=== PATIENT | male | born 1945 | race Two or more races ===

== ENCOUNTER 2022-11-18 08:21 | Emergency (ER) | payer OTHER, MEDICAID ==
[~2022-11-18] VITALS: Ht 167.6 cm; Wt 62.2 kg
[2022-11-18 10:16] LABS: Basophils # (auto) 0 10 ^3/uL (0-0.2); Basophils % (auto) 0.6 % (0.0-2.0); Eosinophils # (auto) 0 10 ^3/uL (0-0.8); Eosinophils % (auto) 0.4 % (0.0-7.0); Hematocrit 47.5 % (41.0-53.0); Hemoglobin 16.6 g/dL (13.5-17.5); Lymphocytes # (auto) 2.3 10 ^3/uL (0.4-5.4); Lymphocytes % (auto) 26.7 % (10.0-50.0); Mean Corpuscular Hemoglobin 32.7 pg (28.0-32.0); Mean Corpuscular Hgb Conc. 34.9 g/dL (32.0-36.0); Mean Corpuscular Volume 93.8 fL (80.0-100.0); Monocytes # (auto) 0.6 10 ^3/uL (0-1.3); Monocytes % (auto) 7.6 % (0.0-12.0); Neutrophils # (auto) 5.5 10 ^3/uL (1.6-8.6); Neutrophils % (auto) 64.7 % (37.0-80.0); Nucleated Red Blood Cells % 0.2 %; Red Blood Cells 5.07 10^6/uL (4.5-5.90); Red Cell Distribution Width 13.8 % (11.8-14.3); White Blood Cell 8.5 10^3/uL (4.4-10.8)
[2022-11-18 10:28] LABS: Urine Bacteria FEW /hpf (None Seen); Urine Blood Negative /uL (Negative); Urine Mucus MODERATE (None Seen); Urine WBC 21 /hpf (0 - 3)
[2022-11-18 10:41] LABS: Albumin 3.8 g/dL (3.4-5.0); CRP High Sensitivity 0.36 mg/dL (< 0.3); Calcium 9.1 mg/dL (8.5-10.1); Magnesium 2.4 mg/dL (1.6-2.6); Potassium 3.7 mmol/L (3.5-5.1)
[2022-11-18 10:44] LABS: BUN/Creatinine Ratio 22.4 (10.0-20.0); Bilirubin, Total 0.6 mg/dL (0.2-1.0); Total Protein 7.4 g/dL (6.4-8.2)
[2022-11-18] MEDS ORDERED: BACDST PO (11:33)
[2022-11-18] MEDS ORDERED: cefTRIAXone SOD 1,000 MG VL IM ONE (11:45)
[2022-11-18 12:01] VITALS: BP 144/82
== END 2022-11-18 11:51 | disposition home or self-care (01) ==
LOC: ER 08:21
DX: N39.0 Urinary tract infection, site not specified (principal); R07.89 Other chest pain; Z20.822 Contact with and (suspected) exposure to COVID-19
CPT/HCPCS: 36415; 71045; 80053; 81001; 83735; 85025; 86141; 87426; 87804; 96372; 99284; J0696

== ENCOUNTER 2023-08-21 03:37 | Inpatient (IN) | payer OTHER, MEDICAID ==
[~2023-08-21] VITALS: Ht 177.8 cm; Wt 65.1 kg
[~2023-08-21 03:37] MED LIST: BACDST PO
[2023-08-21 07:32] LABS: Basophils # (auto) 0 10 ^3/uL (0-0.2); Basophils % (auto) 0.1 % (0.0-2.0); Eosinophils # (auto) 0 10 ^3/uL (0-0.8); Hematocrit 41.6 % (41.0-53.0); Hemoglobin 13.6 g/dL (13.5-17.5); Lymphocytes # (auto) 1.2 10 ^3/uL (0.4-5.4); Lymphocytes % (auto) 5.9 % (10.0-50.0); Mean Corpuscular Hgb Conc. 32.8 g/dL (32.0-36.0); Mean Corpuscular Volume 100.5 fL (80.0-100.0); Monocytes # (auto) 1.2 10 ^3/uL (0-1.3); Monocytes % (auto) 5.5 % (0.0-12.0); Neutrophils # (auto) 18.5 10 ^3/uL (1.6-8.6); Neutrophils % (auto) 88.5 % (37.0-80.0); Red Blood Cells 4.14 10^6/uL (4.5-5.90); Red Cell Distribution Width 14.4 % (11.8-14.3); White Blood Cell 20.9 10^3/uL (4.4-10.8)
[2023-08-21 07:38] LABS: Alanine Aminotransferase 18 U/L (7-40); Albumin 4.4 g/dL (3.2-4.8); Alkaline Phosphatase 75 U/L (46-116); Anion Gap 19 (5-15); Aspartate Aminotransferase 32 U/L (13-40); BUN/Creatinine Ratio 17.9 (10.0-20.0); Bilirubin, Total 0.6 mg/dL (0.2-1.0); Blood Alcohol < 3.0 mg/dL (<10); Blood Urea Nitrogen 21 mg/dL (9-23); Calcium 9.2 mg/dL (8.5-10.1); Carbon Dioxide 16 mmol/L (20-30); Chloride 107 mmol/L (98-107); Glucose 175 mg/dL (74-106); Potassium 3.6 mmol/L (3.5-5.1); Sodium 142 mmol/L (136-145); Total Protein 6.8 g/dL (5.7-8.2)
[2023-08-21 07:40] VITALS: PULSE 81; RESP 22; O2SAT 92
[2023-08-21 07:49] LABS: Salicylate < 3.0 mg/dL (2.8-20.0)
[2023-08-21 07:53] LABS: Lipase 29 U/L (12-53)
[2023-08-21 08:22] LABS: Urine Bacteria NONE SEEN /hpf (None Seen); Urine Blood 2+ /uL (Negative); Urine Clarity Clear (Clear); Urine Color Yellow (Yellow); Urine Mucus FEW (None Seen); Urine Protein, UAD 1+ (Negative); Urine Specific Gravity 1.029 (1.001-1.035); Urine Urobilinogen Normal (Negative); Urine WBC 2 /hpf (0 - 3); Urine pH 5.5 (5.0-8.0)
[2023-08-21 08:45] LABS: Amphetamine Screen, Urine Neg (NEGATIVE); Barbiturate Scree,Urine Neg (NEGATIVE); Benzodiazephine Screen, Urine Neg (NEGATIVE); Cocaine Screen, Urine Neg (NEGATIVE); Opiate Scree,Urine Neg (NEGATIVE); Phencyclidine Screen, Urine Neg (NEGATIVE)
[2023-08-21 08:46] LABS: Cannabinoid Screen, Urine Pos (NEGATIVE)
[2023-08-21] MEDS: MORPHINE SULFATE 4 MG/ML SYR/VIAL IV ONE (09:10)
[2023-08-21] MEDS: LABETALOL HCL 5 MG/ML 4ML SYRINGE IV ONE (09:10)
[2023-08-21] MEDS: IOHEXOL 350 MG/ML 100ML IJ ONE (09:11)
[2023-08-21] MEDS: LORazepam 2MG/ML-1ML VIAL IV ONE (09:11)
[2023-08-21] MEDS ORDERED: MORPHINE SULFATE 4 MG/ML SYR/VIAL IV PRN (12:00)
[2023-08-21] MEDS ORDERED: ONDANSETRON HCL 4 MG/2 ML VIAL IV PRN (12:00)
[2023-08-21] MEDS ORDERED: hydrALAZINE HCL 20 MG/ML VL IV PRN (12:00)
[2023-08-21] MEDS ORDERED: DEXTROSE (50%) 50ML SYRG IV PRN (12:00)
[2023-08-21] MEDS ORDERED: NITROGLYCERIN 0.4 MG SL TAB SL PRN (12:00)
[2023-08-21] MEDS: levETIRAcetam 1000 mg/100ml 100 ML IV ONE (12:08)
[2023-08-21] MEDS: LORazepam 2MG/ML-1ML VIAL IV PRN (12:39)
[2023-08-21] MEDS: SODIUM CHLORIDE 0.9% 1,000 ML IV SCH (12:39)
[2023-08-21] MEDS: ACCU-CHEK COMFORT CURVE STRIP VI SCH (12:40)
[2023-08-21] MEDS: InsuLIN REG 1unit/0.01ml Soln (100units/ml) SC SCH (12:44)
[2023-08-21 13:03] LABS: Blood Alcohol < 3.0 mg/dL (<10); INR 1.04 (0.9-1.15); Prothrombin Time 10.9 sec (9.3-11.8)
[2023-08-21 13:05] LABS: Phosphorus 2.4 mg/dL (2.4-5.1)
[2023-08-21 14:16] LABS: Lactic Acid w/Reflex 2.4 mmol/L (0.4-2.0)
[2023-08-21] MEDS: SODIUM CHLORIDE 0.9% 500 ML IV ONE (14:38)
[2023-08-21] MEDS: cefTRIAXone 1GM/50ML D5W 50 ML IV ONE (15:35)
[2023-08-21 16:55] LABS: Triglycerides 55 mg/dL (< 150)
[2023-08-21 16:56] LABS: LDL Cholesterol 84 mg/dL (< 100)
[2023-08-21 16:57] LABS: Cholesterol 130 mg/dL (< 200); HDL Cholesterol 42 mg/dL (40-59)
[2023-08-21 18:10] VITALS: BP 134/56; PULSE 102; RESP 18; O2SAT 98
[2023-08-21 18:20] VITALS: O2SAT 96
[2023-08-21 20:00] VITALS: PULSE 106; PULSE 87; O2SAT 94
[2023-08-21 22:00] VITALS: BP 161/73; PULSE 101; RESP 22; TEMP 98.3; O2SAT 92
[2023-08-21] MEDS: ATORVASTATIN 20 MG TAB PO SCH (22:02)
[2023-08-21] MEDS: levETIRAcetam 1000 mg/100ml 100 ML IV SCH (22:02)
[2023-08-21] MEDS: METOPROLOL TARTRATE 25 MG TAB PO SCH (22:03)
[2023-08-22] VITALS (7 sets, daily range): BP systolic 117–140; BP diastolic 44–81; PULSE 75–103; RESP 16–19; TEMP 98.4–98.6; O2SAT 93–96
[2023-08-22] MEDS: ACETAMINOPHEN 325 MG TAB PO PRN (01:33)
[2023-08-22 05:54] LABS: Basophils # (auto) 0.1 10 ^3/uL (0-0.2); Basophils % (auto) 0.7 % (0.0-2.0); Eosinophils # (auto) 0 10 ^3/uL (0-0.8); Hematocrit 36.8 % (41.0-53.0); Lymphocytes # (auto) 3.5 10 ^3/uL (0.4-5.4); Lymphocytes % (auto) 18.1 % (10.0-50.0); Mean Corpuscular Hemoglobin 31.8 pg (28.0-32.0); Mean Corpuscular Hgb Conc. 32.6 g/dL (32.0-36.0); Mean Corpuscular Volume 97.7 fL (80.0-100.0); Monocytes # (auto) 1.2 10 ^3/uL (0-1.3); Monocytes % (auto) 6.4 % (0.0-12.0); Neutrophils # (auto) 14.3 10 ^3/uL (1.6-8.6); Neutrophils % (auto) 74.8 % (37.0-80.0); Red Blood Cells 3.77 10^6/uL (4.5-5.90); Red Cell Distribution Width 13.7 % (11.8-14.3); White Blood Cell 19.2 10^3/uL (4.4-10.8)
[2023-08-22 06:23] LABS: Alanine Aminotransferase 20 U/L (7-40); Albumin 3.9 g/dL (3.2-4.8); Alkaline Phosphatase 62 U/L (46-116); Anion Gap 10 (5-15); Aspartate Aminotransferase 155 U/L (13-40); BUN/Creatinine Ratio 15.3 (10.0-20.0); Blood Urea Nitrogen 15 mg/dL (9-23); Carbon Dioxide 20 mmol/L (20-30); Chloride 109 mmol/L (98-107); Cholesterol 129 mg/dL (< 200); Glucose 118 mg/dL (74-106); LDL Cholesterol 71 mg/dL (< 100); Potassium 3.6 mmol/L (3.5-5.1); Sodium 139 mmol/L (136-145); Triglycerides 95 mg/dL (< 150)
[2023-08-22 06:24] LABS: Bilirubin, Total 1.2 mg/dL (0.2-1.0); HDL Cholesterol 45 mg/dL (40-59); Total Protein 6.4 g/dL (5.7-8.2)
[2023-08-22 07:07] LABS: RPR Non Reactive (Non Reactive)
[2023-08-22] MEDS: ASPirin 81 mg TAB PO SCH (08:48)
[2023-08-22] MEDS: cefTRIAXone 1GM/50ML D5W 50 ML IV SCH (08:48)
[2023-08-22] MEDS: DOCUSATE SOD 100 MG CAP PO SCH (08:49)
[2023-08-22] MEDS: ENOXAPARIN SOD 40 MG/0.4 ML SYRINGE SC SCH ×2 (08:49→13:56)
[2023-08-22] MEDS ORDERED: LORazepam 2MG/ML-1ML VIAL IV PRN ×2 (12:30)
[2023-08-22] MEDS ORDERED: ENOXAPARIN SOD 40 MG/0.4 ML SYRINGE SC SCH (12:30)
[2023-08-22] MEDS: ATORVASTATIN 20 MG TAB PO SCH (13:55)
[2023-08-22] MEDS: levETIRAcetam 500 MG TAB PO SCH (21:27)
[2023-08-23 05:00] VITALS: BP 136/74; PULSE 76; RESP 18; TEMP 99.9; O2SAT 95
[2023-08-23 08:00] VITALS: BP 136/63; PULSE 101; PULSE 57; RESP 20; TEMP 99.2; O2SAT 93
[2023-08-23 12:00] VITALS: BP 117/62; PULSE 61; RESP 20; TEMP 98.3; O2SAT 94
[2023-08-23 16:00] VITALS: BP 145/93; PULSE 90; RESP 20; TEMP 99.1; O2SAT 96
[2023-08-23 20:00] VITALS: BP 117/62; PULSE 66; TEMP 37.3
[2023-08-23 21:56] VITALS: BP 136/89; PULSE 66; RESP 18; TEMP 98.9; O2SAT 95
[2023-08-24] VITALS (7 sets, daily range): BP systolic 110–144; BP diastolic 59–82; PULSE 56–107; RESP 16–18; TEMP 97.8–98.4; O2SAT 93–95
[2023-08-24] MEDS: HYDROcodone-ACET 5/325MG TAB PO PRN (20:19)
[2023-08-24] MEDS: TEMAZEPAM 15 MG CAP PO PRN (23:30)
[2023-08-25] VITALS (11 sets, daily range): BP systolic 125–146; BP diastolic 47–86; PULSE 85–100; RESP 14–20; TEMP 98–98.6; O2SAT 94–100
[2023-08-25 06:33] LABS: INR 1.01 (0.9-1.15); Partial Thromboplastin Time 31.3 SEC (24.5-34.5); Prothrombin Time 10.6 sec (9.3-11.8)
[2023-08-25 08:57] LABS: Chloride 109 mmol/L (98-107); Potassium 3.5 mmol/L (3.5-5.1); Sodium 141 mmol/L (136-145)
[2023-08-25 08:58] LABS: Anion Gap 4 (5-15); Basophils # (auto) 0.1 10 ^3/uL (0-0.2); Basophils % (auto) 0.5 % (0.0-2.0); Calcium 8.4 mg/dL (8.5-10.1); Carbon Dioxide 28 mmol/L (20-30); Eosinophils # (auto) 0.1 10 ^3/uL (0-0.8); Eosinophils % (auto) 0.7 % (0.0-7.0); Hematocrit 30.1 % (41.0-53.0); Hemoglobin 10.2 g/dL (13.5-17.5); Lymphocytes % (auto) 17.9 % (10.0-50.0); Mean Corpuscular Hemoglobin 33.4 pg (28.0-32.0); Mean Corpuscular Hgb Conc. 33.9 g/dL (32.0-36.0); Mean Corpuscular Volume 98.4 fL (80.0-100.0); Monocytes % (auto) 9.4 % (0.0-12.0); Neutrophils % (auto) 71.5 % (37.0-80.0); Red Blood Cells 3.06 10^6/uL (4.5-5.90); Red Cell Distribution Width 13.5 % (11.8-14.3); White Blood Cell 11.1 10^3/uL (4.4-10.8)
[2023-08-25 09:03] LABS: Glucose 108 mg/dL (74-106)
[2023-08-25 11:06] LABS: BUN/Creatinine Ratio 13.5 (10.0-20.0); Blood Urea Nitrogen 10 mg/dL (9-23)
[2023-08-25] MEDS: POTASSIUM CHL 20 Meq TABLET PO ONE (12:33)
[2023-08-25] MEDS: MORPHINE SULFATE INJ 2 MG/ml SYRG IV PRN (12:33)
[2023-08-25] MEDS ORDERED: ENOXAPARIN SOD 40 MG/0.4 ML SYRINGE SC ONE (13:15)
[2023-08-25] MEDS: LIDOCAINE VISCOUS 2% 15ML UD PO ONE (13:38)
[2023-08-25] MEDS: fentaNYL CITRATE 100 MCG/2 ML VL IV ONE (13:47)
[2023-08-25] MEDS: MIDAZOLAM HCL 2MG/2ML 2ml VIAL (1mg/ml) IV ONE (13:49)
[2023-08-25] MEDS: IOHEXOL 350 MG/ML 100ML IJ ONE (16:12)
[2023-08-26] VITALS (9 sets, daily range): BP systolic 106–151; BP diastolic 61–87; PULSE 93–111; RESP 17–20; TEMP 97.8–99.1; O2SAT 95–97
[2023-08-26 06:43] LABS: Basophils # (auto) 0 10 ^3/uL (0-0.2); Basophils % (auto) 0.2 % (0.0-2.0); Eosinophils # (auto) 0.1 10 ^3/uL (0-0.8); Eosinophils % (auto) 0.8 % (0.0-7.0); Hematocrit 31.2 % (41.0-53.0); Hemoglobin 10.2 g/dL (13.5-17.5); Lymphocytes # (auto) 2.1 10 ^3/uL (0.4-5.4); Lymphocytes % (auto) 17.4 % (10.0-50.0); Mean Corpuscular Hemoglobin 32.2 pg (28.0-32.0); Mean Corpuscular Hgb Conc. 32.8 g/dL (32.0-36.0); Mean Corpuscular Volume 98.3 fL (80.0-100.0); Monocytes # (auto) 1.3 10 ^3/uL (0-1.3); Monocytes % (auto) 10.7 % (0.0-12.0); Neutrophils # (auto) 8.4 10 ^3/uL (1.6-8.6); Neutrophils % (auto) 70.9 % (37.0-80.0); Red Blood Cells 3.17 10^6/uL (4.5-5.90); Red Cell Distribution Width 13.4 % (11.8-14.3); White Blood Cell 11.9 10^3/uL (4.4-10.8)
[2023-08-26 07:00] LABS: Chloride 104 mmol/L (98-107); Potassium 3.4 mmol/L (3.5-5.1)
[2023-08-26 07:01] LABS: Anion Gap 7 (5-15); Calcium 8.6 mg/dL (8.5-10.1); Carbon Dioxide 25 mmol/L (20-30)
[2023-08-26 07:06] LABS: BUN/Creatinine Ratio 12.5 (10.0-20.0); Blood Urea Nitrogen 9 mg/dL (9-23); Glucose 96 mg/dL (74-106)
[2023-08-26 07:09] LABS: Sodium 136 mmol/L (136-145)
[2023-08-26] MEDS: ENOXAPARIN SOD 40 MG/0.4 ML SYRINGE SC SCH (10:31)
[2023-08-26] MEDS ORDERED: HYDR-4902 PO (10:40)
[2023-08-26] MEDS ORDERED: ATOR20TA50 PO (10:40)
[2023-08-26] MEDS ORDERED: KEP500T PO (10:40)
[2023-08-26] MEDS ORDERED: AMLO1TAB23 PO (14:36)
[2023-08-27 05:00] VITALS: BP 120/75; PULSE 107; RESP 16; TEMP 98.3; O2SAT 96
[2023-08-27 08:00] VITALS: PULSE 106
[2023-08-27 08:50] VITALS: BP 127/56; PULSE 110; RESP 16; TEMP 98.6; O2SAT 97
[2023-08-27 13:00] VITALS: BP 125/61; PULSE 108; RESP 16; TEMP 98.5; O2SAT 97
== END 2023-08-27 15:01 | disposition home health service (06) | DRG 100 ==
LOC: EDBD 03:37 → ER 03:37 → TELE 12:13 → TELE-WESTW 17:54
PROVIDERS: ADMIT Nurse Practitioner Family; ATTEND Internal Medicine Pulmonary Disease
PROC: B246ZZ4 Ultrasonography of Right and Left Heart, Transesophageal (ICD-10-PCS; principal; 2023-08-25)
DX: G40.909 Epilepsy, unspecified, not intractable, without status epilepticus (principal); I21.A1 Myocardial infarction type 2; S42.292A Other displaced fracture of upper end of left humerus, initial encounter for closed fracture; I16.0 Hypertensive urgency; F17.200 Nicotine dependence, unspecified, uncomplicated; W18.39XA Other fall on same level, initial encounter; Y92.89 Other specified places as the place of occurrence of the external cause; Y99.8 Other external cause status; Y93.89 Activity, other specified; Z86.73 Personal history of transient ischemic attack (TIA), and cerebral infarction without residual deficits; Z79.82 Long term (current) use of aspirin; Z79.899 Other long term (current) drug therapy; Z82.49 Family history of ischemic heart disease and other diseases of the circulatory system
CPT/HCPCS: 36415; 36600; 70450; 70498; 70551; 71045; 71260; 73020; 73030; 73200; 74177; 80048; 80053; 80061; 80307; 80320; 80329; 81001; 82805; 82962; 83036; 83605; 83690; 83735; 84100; 84443; 84484; 85025; 85610; 85730; 86592; 86850; 86900; 86901; 87040; 87077; 87186; 93005; 93306; 93312; 93886; 95819; 97110; 97116; 97163; 97530; 99152; 99291; G0378; J1815; J2250; J3490

== ENCOUNTER 2023-11-26 14:41 | Emergency (ER) | payer OTHER, MEDICAID ==
[~2023-11-26] VITALS: Ht 167.6 cm; Wt 61.3 kg
[~2023-11-26 14:41] MED LIST changes: +AMLO1TAB23 PO; +ATOR20TA50 PO; -BACDST PO; +HYDR-4902 PO; +KEP500T PO
[2023-11-26] MEDS ORDERED: SODIUM CHLORIDE 0.9% 1,000 ML IV ONE (16:15)
[2023-11-26 17:02] LABS: Basophils # (auto) 0 10 ^3/uL (0-0.2); Basophils % (auto) 0.4 % (0.0-2.0); Eosinophils # (auto) 0.1 10 ^3/uL (0-0.8); Eosinophils % (auto) 1.3 % (0.0-7.0); Hematocrit 42.5 % (41.0-53.0); Hemoglobin 13.7 g/dL (13.5-17.5); Lymphocytes % (auto) 36.4 % (10.0-50.0); Mean Corpuscular Hemoglobin 30.9 pg (28.0-32.0); Mean Corpuscular Hgb Conc. 32.3 g/dL (32.0-36.0); Mean Corpuscular Volume 95.5 fL (80.0-100.0); Monocytes # (auto) 0.9 10 ^3/uL (0-1.3); Monocytes % (auto) 10.4 % (0.0-12.0); Neutrophils # (auto) 4.3 10 ^3/uL (1.6-8.6); Neutrophils % (auto) 51.5 % (37.0-80.0); Nucleated Red Blood Cells % 0.1 %; Red Blood Cells 4.45 10^6/uL (4.5-5.90); Red Cell Distribution Width 13.5 % (11.8-14.3); White Blood Cell 8.4 10^3/uL (4.4-10.8)
[2023-11-26 17:19] LABS: INR 1.01 (0.9-1.15); Partial Thromboplastin Time 27.9 SEC (24.5-34.5); Prothrombin Time 10.7 sec (9.3-11.8)
[2023-11-26 17:25] LABS: Chloride 107 mmol/L (98-107); Potassium 3.6 mmol/L (3.5-5.1); Sodium 140 mmol/L (136-145)
[2023-11-26 17:26] LABS: Anion Gap 3 (5-15); Calcium 9.2 mg/dL (8.5-10.1); Carbon Dioxide 30 mmol/L (20-30)
[2023-11-26 17:31] LABS: BUN/Creatinine Ratio 7.3 (10.0-20.0); Blood Urea Nitrogen 9 mg/dL (9-23); Glucose 83 mg/dL (74-106)
[2023-11-26 17:43] LABS: Urine Bacteria None Seen /hpf (None Seen)
[2023-11-26 17:52] VITALS: PULSE 74; RESP 15; O2SAT 98
[2023-11-26 18:37] LABS: Urine Blood TRACE /uL (Negative); Urine Clarity Clear (Clear); Urine Color Light-Yellow (Yellow); Urine Protein, UAD Negative (Negative); Urine Specific Gravity 1.012 (1.001-1.035); Urine Urobilinogen Normal (Negative); Urine WBC 1 /hpf (0 - 3); Urine pH 5.5 (5.0-9.0)
[2023-11-27 03:30] VITALS: BP 141/59; PULSE 97; RESP 16; O2SAT 95
== END 2023-11-27 04:32 | disposition home or self-care (01) ==
LOC: EDBD 14:45 → ER 14:45
DX: S42.292D Other displaced fracture of upper end of left humerus, subsequent encounter for fracture with routine healing (principal); X58.XXXD Exposure to other specified factors, subsequent encounter
CPT/HCPCS: 29105; 36415; 73200; 80048; 81001; 85025; 85610; 85730

== ENCOUNTER 2024-03-12 11:20 | Inpatient (IN) | payer OTHER, MEDICAID ==
[~2024-03-12] VITALS: Ht 175.3 cm; Wt 61.8 kg
[2024-03-12 12:00] LABS: Basophils # (auto) 0.1 10 ^3/uL (0-0.2); Basophils % (auto) 0.9 % (0.0-2.0); Eosinophils # (auto) 0 10 ^3/uL (0-0.8); Hematocrit 40.9 % (41.0-53.0); Hemoglobin 14.2 g/dL (13.5-17.5); Lymphocytes # (auto) 2.5 10 ^3/uL (0.4-5.4); Mean Corpuscular Hemoglobin 33.3 pg (28.0-32.0); Mean Corpuscular Hgb Conc. 34.6 g/dL (32.0-36.0); Monocytes # (auto) 1.3 10 ^3/uL (0-1.3); Monocytes % (auto) 8.5 % (0.0-12.0); Neutrophils % (auto) 73.6 % (37.0-80.0); Platelet Count (auto) 336 10^3/uL (140-450); Red Blood Cells 4.26 10^6/uL (4.5-5.90); Red Cell Distribution Width 14.1 % (11.8-14.3); White Blood Cell 14.9 10^3/uL (4.4-10.8)
[2024-03-12 12:01] VITALS: PULSE 60; RESP 16; O2SAT 97
[2024-03-12] MEDS: LORazepam 2MG/ML-1ML VIAL IV ONE ×2 (12:11→12:57)
[2024-03-12] MEDS: LORazepam 2MG/ML-1ML VIAL ONE (12:11)
[2024-03-12] MEDS: SODIUM CHLORIDE 0.9% 1,000 ML IV ONE ×2 (12:11→15:29)
[2024-03-12 12:17] LABS: INR 1.08 (0.9-1.15); Partial Thromboplastin Time 28.9 SEC (24.5-34.5); Prothrombin Time 11.4 sec (9.3-11.8)
[2024-03-12 12:37] LABS: Alanine Aminotransferase 14 U/L (7-40); Albumin 4.4 g/dL (3.2-4.8); Alkaline Phosphatase 80 U/L (46-116); Anion Gap 8 (5-15); Aspartate Aminotransferase 27 U/L (13-40); BUN/Creatinine Ratio 17.3 (10.0-20.0); Bilirubin, Total 0.3 mg/dL (0.2-1.0); Blood Alcohol < 3.0 mg/dL (<10); Blood Urea Nitrogen 17 mg/dL (9-23); Calcium 9.8 mg/dL (8.7-10.4); Carbon Dioxide 25 mmol/L (20-30); Chloride 105 mmol/L (98-107); Glucose 105 mg/dL (74-106); Potassium 4.5 mmol/L (3.5-5.1); Sodium 138 mmol/L (136-145); Total Protein 6.7 g/dL (5.7-8.2)
[2024-03-12 13:15] LABS: Urine Bacteria None Seen /hpf (None Seen)
[2024-03-12 13:37] LABS: Urine Blood 2+ /uL (Negative); Urine Clarity Clear (Clear); Urine Color Light-Yellow (Yellow); Urine Hyaline Cast FEW /lpf (0 - 2); Urine Mucus FEW (None Seen); Urine Protein, UAD TRACE (Negative); Urine Specific Gravity 1.019 (1.001-1.035); Urine Urobilinogen Normal (Negative); Urine WBC 5 /hpf (0 - 3); Urine pH 5.5 (5.0-9.0)
[2024-03-12 14:02] LABS: Amphetamine Screen, Urine Neg (NEGATIVE); Barbiturate Scree,Urine Neg (NEGATIVE); Benzodiazephine Screen, Urine Neg (NEGATIVE); Cannabinoid Screen, Urine Pos (NEGATIVE); Cocaine Screen, Urine Neg (NEGATIVE); Opiate Scree,Urine Neg (NEGATIVE); Phencyclidine Screen, Urine Neg (NEGATIVE)
[2024-03-12] MEDS: ENOXAPARIN SOD 80 MG/0.8ML SYRINGE SC ONE (16:26)
[2024-03-12] MEDS: cefTRIAXone 1GM/50ML D5W 50 ML IV ONE (16:26)
[2024-03-12] MEDS ORDERED: ACETAMINOPHEN 325 MG TAB PO PRN (18:00)
[2024-03-12] MEDS ORDERED: MORPHINE SULFATE INJ 2 MG/ml SYRG IV PRN (18:00)
[2024-03-12] MEDS ORDERED: ONDANSETRON HCL 4 MG/2 ML VIAL IV PRN (18:00)
[2024-03-12] MEDS ORDERED: NITROGLYCERIN 0.4 MG SL TAB SL PRN (18:00)
[2024-03-12 19:45] VITALS: PULSE 57; RESP 16; O2SAT 97
[2024-03-12] MEDS: ATORVASTATIN 20 MG TAB PO SCH (22:00)
[2024-03-12] MEDS: levETIRAcetam 500 MG TAB PO SCH (22:00)
[2024-03-12 22:54] VITALS: PULSE 51; RESP 19; O2SAT 97
[2024-03-12 23:30] VITALS: BP 126/35; PULSE 51; RESP 19; TEMP 98.3; O2SAT 97
[2024-03-13] VITALS (10 sets, daily range): BP systolic 119–138; BP diastolic 44–66; PULSE 56–80; RESP 17–18; TEMP 98.3–98.7; O2SAT 91–97
[2024-03-13] MEDS: ASPirin 81 mg TAB PO SCH ×2 (09:01→18:45)
[2024-03-13] MEDS: amLODIPine BESYLATE 5 MG TAB PO SCH (09:02)
[2024-03-13] MEDS: ENOXAPARIN SOD 40 MG/0.4 ML SYRINGE SC SCH (09:02)
[2024-03-13] MEDS: cefTRIAXone 1GM/50ML D5W 50 ML IV ONE (12:41)
[2024-03-13] MEDS ORDERED: LORazepam 2MG/ML-1ML VIAL IV PRN (18:45)
[2024-03-13] MEDS: ATORVASTATIN 20 MG TAB PO SCH (18:45)
[2024-03-14] VITALS (8 sets, daily range): BP systolic 114–137; BP diastolic 49–64; PULSE 54–79; RESP 16–18; TEMP 97.4–98.4; O2SAT 94–97
[2024-03-14] MEDS: cefTRIAXone 1GM/50ML D5W 50 ML IV SCH (08:15)
[2024-03-15] VITALS (7 sets, daily range): BP systolic 118–125; BP diastolic 61–79; PULSE 65–77; RESP 17–18; TEMP 98–98.4; O2SAT 97–98
[2024-03-15] MEDS ORDERED: CIPR-173 PO (12:39)
== END 2024-03-15 15:39 | disposition home or self-care (01) | DRG 871 ==
LOC: ER 11:20 → EDBD 11:20 → TELE 18:09 → TELE-WESTW 18:09
PROVIDERS: ADMIT Nurse Practitioner; ATTEND Family Medicine
DX: A41.9 Sepsis, unspecified organism (principal); I21.A1 Myocardial infarction type 2; N39.0 Urinary tract infection, site not specified; G40.909 Epilepsy, unspecified, not intractable, without status epilepticus; I10 Essential (primary) hypertension; E78.00 Pure hypercholesterolemia, unspecified; F17.200 Nicotine dependence, unspecified, uncomplicated; G93.89 Other specified disorders of brain; Z79.82 Long term (current) use of aspirin; Z86.73 Personal history of transient ischemic attack (TIA), and cerebral infarction without residual deficits; Z79.899 Other long term (current) drug therapy; Z82.49 Family history of ischemic heart disease and other diseases of the circulatory system
CPT/HCPCS: 36415; 70450; 70551; 71045; 72125; 80053; 80307; 80320; 81001; 82140; 83605; 83735; 84484; 85025; 85610; 85730; 87040; 87086; 93306; 93886; 96365; 96372; 96375; 97110; 97116; 97163; 97530; 99291; G0378

== ENCOUNTER → 2024-04-09 | Outpatient (CLI) | payer OTHER, MEDICAID ==
[~2024-04-09] VITALS: Ht 167.6 cm; Wt 57.2 kg
[~2024-04-09] MED LIST changes: +CIPR-173 PO
[2024-04-09] MEDS: ADENOSINE 48 MG in GIVE UN-DILUTED 0 ML IV ONE (10:35)
== END | disposition home or self-care (01) ==
LOC: XYW 08:28
PROVIDERS: ATTEND Student in an Organized Health Care Education/Training Program
DX: I25.9 Chronic ischemic heart disease, unspecified (principal)
CPT/HCPCS: 78452; 93017; A9500; J0153

== ENCOUNTER 2024-07-16 17:41 | Inpatient (IN) | payer OTHER, MEDICAID ==
[~2024-07-16] VITALS: Ht 182.9 cm; Wt 60.4 kg
--- NOTE | 2024-07-16 18:09 | ECG ---
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
--- NOTE | 2024-07-16 18:27 | ED.PDOC ---
History of Present Illness HPI Comments 78M BIBA w/ no prior Hx associated to the c/c of ALOC. EMS was not with pt but left and informed a nurse that he was brought to the ER due from not behaving appropriate since 0800 today. After questioning the pt, he seemed normal of A/Ox4 as well as stating that he is weak. Denies chills, fever, N/V/D, SOB, CP or other associated symptom's, modifiers, or recent injuries or sick contact at this time. 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, Medications, Allergies Allergies: Coded Allergies: NO KNOWN ALLERGIES (Unverified , 04/09/24) Home Meds Active Scripts Ciprofloxacin Hcl (Cipro) 500 Mg Tab, 1 TAB PO BID, #20 TAB Prov:JAVY MAX MD 03/15/24 Amlodipine Besylate (Amlodipine Besylate) 10 Mg Tab, 1 TAB PO DAILY, #30 TAB 5 Refills Prov:ELISA NIELSON MD 08/26/23 Levetiracetam (KEPPRA TABLET) 500 Mg Tb, 500 MG PO BID for 30 Days, #60 TAB Prov:ELISA NIELSON MD 08/26/23 Hydrocodone-Acetaminophen (Hydrocodone Bitartrate/AC 5-325 mg) 1 Tab Tab, 1 TAB PO Q6HPRN PRN for 7 Days, #28 TAB Prov:ELISA NIELSON MD 08/26/23 Atorvastatin Calcium (ATORVASTATIN CALCIUM) 20 Mg Tab, 20 MG PO HS for 30 Days, #30 TAB Prov:ELISA NIELSON MD 08/26/23 Information Source: Patient, Emergency Med Personnel Mode of Arrival: EMS Severity: Moderate Timing: Hours Duration: Since onset, Hours Prehospital treatment: None Past Medical History PAST MEDICAL HISTORY: Unknown Surgical History: Denies all surgeries Family History Family History: Reviewed,noncontributory to illness, Unknown Social History Smoker: Cigarettes Alcohol: Denies ETOH Use Drugs: Denies Drug Use Lives In: Home Constitutional: reports: weakness; denies: chills, diaphoresis, fatigue, fever, malaise, sweats, others EENTM: denies: blurred vision, double vision, ear bleeding, ear discharge, ear drainage, ear pain, ear ringing, eye pain, eye redness, hearing loss, mouth pain, mouth swelling, nasal discharge, nose bleeding, nose congestion, nose pain, photophobia, tearing, throat pain, throat swelling, voice changes, others Respiratory: denies: cough, hemoptysis, orthopnea, SOB at rest, shortness of breath, SOB with excertion, stridor, wheezing, others Cardiovascular: denies: chest pain, dizzy spells, diaphoresis, Dyspnea on exertion, edema, irregular heart beat, left arm pain, lightheadedness, palpitations, PND, syncope, others Gastrointestinal: denies: abdomen distended, abdominal pain, blood streaked bowels, constipated, diarrhea, dysphagia, difficulty swallowing, hematemesis, melena, nausea, poor appetite, poor fluid intake, rectal bleeding, rectal pain, vomiting, others Genitourinary: denies: burning, dysuria, flank pain, frequency, hematuria, incontinence, penile discharge, penile sore, pain, testicle pain, testicle swelling, urgency, others Neurological: denies: dizziness, fainting, headache, left sided numbness, left sided weakness, numbness, paresthesia, pre-existing deficit, right sided numbness, right sided weakness, seizure, speech problems, tingling, tremors, weakness, others Musculoskeletal: denies: back pain, gout, joint pain, joint swelling, muscle pain, muscle stiffness, neck pain, others Integumetry: denies: bruises, change in color, change in hair/nails, dryness, laceration, lesions, lumps, rash, wounds, others Allergic/Immunocompromised: denies: Difficulty Healing, Frequent Infections, Hives, Itching, others Hematologic/Lymphatic: denies: anemia, blood clots, easy bleeding, easy bruising, swollen glands, others Endocrine: denies: excessive hunger, excessive sweating, excessive thirst, excessive urination, flushing, intolerance to cold, intolerance to heat, unexplained weight gain, unexplained weight loss, others Psychiatric: denies: anxiety, bipolar disorder, depression, hopeless, panic disorder, schizophrenia, sleepless, suicidal, others All Other Systems: Reviewed and Negative Physical Exam General Appearance: Moderate Distress HEENT: Normal ENT Inspection, Pharynx Normal, TMs Normal Neck: Full Range of Motion, Non-Tender, Normal, Normal Inspection Respiratory: Chest Non-Tender, Lungs Clear, No Accessory Muscle Use, No Respiratory Distress, Normal Breath Sounds Cardiovascular: No Edema, No JVD, No Murmur, No Gallop, Normal Peripheral Pulses, Regular Rate/Rhythm Breast Exam: Deferred Gastrointestinal: No Organomegaly, Non Tender, No Pulsatile Mass, Normal Bowel Sounds, Soft Genitalia: Deferred Pelvic: Deferred Rectal: Deferred Extremities: No calf tenderness, Normal capillary refill, No pedal edema Musculoskeletal : Apperance: Normal Neurologic: Alert, breaker table worker II-XII nml as Tested, Motor Weakness, Normal Affect, Normal Mood, No Sensory Deficits Cerebellar Function: Normal Reflexes: Normal Skin: Dry, Normal Color, Warm Lymphatic: No Adenopathy Was a procedure done? Was a procedure done?: No Differential Dx Considerations may include: Generalized weakness, UTI, sepsis secondary to UTI X-Ray, Labs, Meds, VS Vital Signs Date Time Temp Pulse Resp B/P (MAP) Pulse Ox O2 Delivery O2 Flow Rate FiO2 07/16/24 17:55 97.5 90 20 156/53 (87) 96 07/16/24 17:51 67 Lab Test 07/16/24 18:51 Range/Units White Blood Count 13.7 H 4.4-10.8 10^3/uL Red Blood Count 4.48 L 4.5-5.90 10^6/uL Hemoglobin 14.7 13.5-17.5 g/dL Hematocrit 44.0 41.0-53.0 % Mean Corpuscular Volume 98.1 80.0-100.0 fL Mean Corpuscular Hemoglobin 32.7 H 28.0-32.0 pg Mean Corpuscular Hemoglobin Concent 33.3 32.0-36.0 g/dL Red Cell Distribution Width 14.0 11.8-14.3 % Platelet Count 282 140-450 10^3/uL Mean Platelet Volume 8.1 6.9-10.8 fL Neutrophils (%) (Auto) 86.3 H 37.0-80.0 % Lymphocytes (%) (Auto) 9.0 L 10.0-50.0 % Monocytes (%) (Auto) 4.0 0.0-12.0 % Eosinophils (%) (Auto) 0.2 0.0-7.0 % Basophils (%) (Auto) 0.5 0.0-2.0 % Neutrophils # (Auto) 11.8 H 1.6-8.6 10 ^3/uL Lymphocytes # (Auto) 1.2 0.4-5.4 10 ^3/uL Monocytes # (Auto) 0.5 0-1.3 10 ^3/uL Eosinophils # (Auto) 0 0-0.8 10 ^3/uL Basophils # (Auto) 0.1 0-0.2 10 ^3/uL Nucleated Red Blood Cells 0.0 % Sodium Level 140 136-145 mmol/L Potassium Level 4.1 3.5-5.1 mmol/L Chloride Level 106 98-107 mmol/L Carbon Dioxide Level 27 20-31 mmol/L Anion Gap 7 5-15 Blood Urea Nitrogen 11 9-23 mg/dL Creatinine 1.13 0.700-1.30 mg/dL Glomerular Filtration Rate Calc 66 >90 mL/min BUN/Creatinine Ratio 9.7 L 10.0-20.0 Serum Glucose 143 H 74-106 mg/dL Calcium Level 9.4 8.7-10.4 mg/dL CT scan of the head is negative The CBC shows an elevated white blood count of 13.7 The chemistry panel is within normal limits The patient was being admitted to the hospitalist At this time the patient will be admitted Images Reviewed?: Images reviewed and evaluated by me Time of 1ST Reevaluation: 18:50 Reevaluation 1ST: Unchanged Patient Education/Counseling: Diagnosis, Treatment, Prognosis Family Education/Counseling: No Family Present Departure 1 Departure Time of Disposition: 21:34 Impression: Primary Impression: Altered mental status Qualified Codes: R41.82 - Altered mental status, unspecified Additional Impression: UTI (urinary tract infection) Qualified Codes: N30.00 - Acute cystitis without hematuria Disposition: 09 ADMITTED INPATIENT Admit to: Tele Condition: Fair Critical Care Note Critical Care Time?: No Stability Stability form required: Yes Unstable for transfer: ED Physician Assesment (Clinical assesment) Heart Score Heart Score: Heart Score Response (Comments) Value History N/A 0 EKG N/A 0 Age N/A 0 Risk Factors N/A 0 Troponin N/A 0 Total 0 I personally scribed for MEKHI LYNN MD ([email or web address]) on 07/16/24 at 18:27. Electronically submitted by Cedric Colón ([email or web address]). MEKHI LYNN MD Jul 16, 2024 18:27
[2024-07-16 19:12] LABS: Basophils # (auto) 0.1 10 ^3/uL (0-0.2); Basophils % (auto) 0.5 % (0.0-2.0); Eosinophils # (auto) 0 10 ^3/uL (0-0.8); Eosinophils % (auto) 0.2 % (0.0-7.0); Hemoglobin 14.7 g/dL (13.5-17.5); Lymphocytes # (auto) 1.2 10 ^3/uL (0.4-5.4); Mean Corpuscular Hemoglobin 32.7 pg (28.0-32.0); Mean Corpuscular Hgb Conc. 33.3 g/dL (32.0-36.0); Mean Corpuscular Volume 98.1 fL (80.0-100.0); Monocytes # (auto) 0.5 10 ^3/uL (0-1.3); Neutrophils # (auto) 11.8 10 ^3/uL (1.6-8.6); Neutrophils % (auto) 86.3 % (37.0-80.0); Platelet Count (auto) 282 10^3/uL (140-450); Red Blood Cells 4.48 10^6/uL (4.5-5.90); White Blood Cell 13.7 10^3/uL (4.4-10.8)
[2024-07-16 19:29] LABS: Chloride 106 mmol/L (98-107); Potassium 4.1 mmol/L (3.5-5.1); Sodium 140 mmol/L (136-145)
[2024-07-16 19:30] LABS: Anion Gap 7 (5-15); Calcium 9.4 mg/dL (8.7-10.4); Carbon Dioxide 27 mmol/L (20-31)
[2024-07-16 19:35] LABS: BUN/Creatinine Ratio 9.7 (10.0-20.0); Blood Urea Nitrogen 11 mg/dL (9-23)
[2024-07-16 19:45] LABS: Glucose 143 mg/dL (74-106)
--- NOTE | 2024-07-16 21:19 | DVH ---
EXAM: CT HEAD WITHOUT CONTRAST HISTORY: weakness COMPARISON: CT HEAD WITHOUT CONTRAST on DOS: 03/12/24, CT CERVICAL WITHOUT CONTRAST on DOS: 03/12/24, C T HEAD WITHOUT CONTRAST on DOS: 08/21/23 TECHNIQUE: Axial images were obtained and reformatted in coronal and sagittal planes. All CT scans at this medical facility are performed using dose modulation techniques as appropriate t o a performed exam including the following: Automated exposure control was utilized; adjustment of th e MA and/or KV according to patient size; and use of iterative reconstruction technique. CT Dose: CTDI volume is 55 mGy. Dose-length product is 1098 mGy*cm FINDINGS: Supratentorial Region: No evidence for large acute territorial ischemia. No intracranial hemorrhage is noted. Moderate-sized old right occipital infarcts. Old lacunar infarcts are seen in the bilatera l thalami. Posterior Fossa: No acute abnormality. Brainstem: Unremarkable. Sellar/Suprasellar Region: Unremarkable. Ventricles, Cisterns, Sulci: Age-appropriate. Orbits: Unremarkable. Paranasal Sinuses: Unremarkable. Mastoid Air Cells: Unremarkable. Vasculature: Intracranial arterial calcified plaque formation noted. Bones/Soft Tissues: No acute abnormality. Other: None. IMPRESSION: 1. No acute intracranial process. 2. 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
--- NOTE | 2024-07-16 22:39 | DVHHPRES ---
Review of Systems Allergies: Coded Allergies: NO KNOWN ALLERGIES (Unverified , 04/09/24) Exam Vital Signs Vital Signs Date Time Temp Pulse Resp B/P (MAP) Pulse Ox O2 Delivery O2 Flow Rate FiO2 07/16/24 17:55 97.5 90 20 156/53 (87) 96 Labs/Xrays Labs Test 07/16/24 18:51 Range/Units White Blood Count 13.7 H 4.4-10.8 10^3/uL Red Blood Count 4.48 L 4.5-5.90 10^6/uL Hemoglobin 14.7 13.5-17.5 g/dL Hematocrit 44.0 41.0-53.0 % Mean Corpuscular Volume 98.1 80.0-100.0 fL Mean Corpuscular Hemoglobin 32.7 H 28.0-32.0 pg Mean Corpuscular Hemoglobin Concent 33.3 32.0-36.0 g/dL Red Cell Distribution Width 14.0 11.8-14.3 % Platelet Count 282 140-450 10^3/uL Mean Platelet Volume 8.1 6.9-10.8 fL Neutrophils (%) (Auto) 86.3 H 37.0-80.0 % Lymphocytes (%) (Auto) 9.0 L 10.0-50.0 % Monocytes (%) (Auto) 4.0 0.0-12.0 % Eosinophils (%) (Auto) 0.2 0.0-7.0 % Basophils (%) (Auto) 0.5 0.0-2.0 % Neutrophils # (Auto) 11.8 H 1.6-8.6 10 ^3/uL Lymphocytes # (Auto) 1.2 0.4-5.4 10 ^3/uL Monocytes # (Auto) 0.5 0-1.3 10 ^3/uL Eosinophils # (Auto) 0 0-0.8 10 ^3/uL Basophils # (Auto) 0.1 0-0.2 10 ^3/uL Nucleated Red Blood Cells 0.0 % Sodium Level 140 136-145 mmol/L Potassium Level 4.1 3.5-5.1 mmol/L Chloride Level 106 98-107 mmol/L Carbon Dioxide Level 27 20-31 mmol/L Anion Gap 7 5-15 Blood Urea Nitrogen 11 9-23 mg/dL Creatinine 1.13 0.700-1.30 mg/dL Glomerular Filtration Rate Calc 66 >90 mL/min BUN/Creatinine Ratio 9.7 L 10.0-20.0 Serum Glucose 143 H 74-106 mg/dL Calcium Level 9.4 8.7-10.4 mg/dL BRIANNA ESQUEDA RESIDENT Jul 16, 2024 22:39
--- NOTE | 2024-07-16 23:44 | DVHHPRES ---
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 EMS left before further information could be obtained from them, per patient he does not remember why he is in the hospital or how he got here. Patient is alert and oriented in 4 spheres at the time of this interview. On review of systems, he is complaining of bilateral shoulder pain, fatigue and increased urinary frequency in the last 1 week. In the ER he was noted to have a WBC count of 13.7, hemoglobin 14.7, GFR 66 and serum creatinine 1.13. Per patient, he was last hospitalized 2 months ago after he sustained a mechanical fall. 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, left vertebral artery occlusion, dyslipidemia, hypertension Past Surgical History Denies Past Social History Smoking: Smokes 1-2 pipes per day for the past 3-5 years Alcohol: Denies Drugs: Denies Review of Systems Constitutional: Yes: Malaise; No: Fever, Chills, Sweats, Weakness, Other Eyes: No: Pain, Vision change, Conjunctivae inflammation, Eyelid inflammation, Other, Redness ENT: No: Ear pain, Ear discharge, Nose pain, Nose discharge, Nose congestion, Mouth pain, Mouth swelling, Throat pain, Throat swelling, Other Respiratory: No: Cough, Dry, Shortness of breath, SOB with excertion, Wheezing, Hemoptysis, Pleuritic Pain, Sputum, Wheezing, Other Cardiovascular: No: Chest Pain, Palpitations, Orthopnea, Paroxysmal Noc. Dyspnea, Edema, Lt Headedness, Other Gastrointestinal: No: Nausea, Vomiting, Abdominal Pain, Diarrhea, Constipation, Melena, Hematochezia, Other Genitourinary: No Dysuria; Frequency; No Incontinence, No Hematuria, No Retention, No Other Musculoskeletal: shoulder pain; No: other, neck pain, arm pain, back pain, hand pain, leg pain, foot pain Skin: No: Rash, Lesions, Jaundice, Bruising, Other Neurological: No: Weakness, Numbness, Incoordination, Change in speech, Confusion, Seizures, Other Allergies: Coded Allergies: NO KNOWN ALLERGIES (Unverified , 04/09/24) Exam Vital Signs Vital Signs Date Time Temp Pulse Resp B/P (MAP) Pulse Ox O2 Delivery O2 Flow Rate FiO2 07/16/24 17:55 97.5 90 20 156/53 (87) 96 General Appearance: Alert, Oriented X3, Cooperative, No acute distress HEENT: Atraumatic, PERRLA, EOMI Respiratory: Normal air movement Cardiovascular: Regular rate, Normal S1, Normal S2 Abdominal: Normal bowel sounds, Soft, No tenderness Extremities: No clubbing, No edema Skin: No rashes, No significant lesion Neuro: Normal gait, Normal speech, Strength at 5/5 X4 ext, Sensation intact Psych/Mental Status: Mental status NL, Mood NL Labs/Xrays Labs Test 07/16/24 18:51 Range/Units White Blood Count 13.7 H 4.4-10.8 10^3/uL Red Blood Count 4.48 L 4.5-5.90 10^6/uL Hemoglobin 14.7 13.5-17.5 g/dL Hematocrit 44.0 41.0-53.0 % Mean Corpuscular Volume 98.1 80.0-100.0 fL Mean Corpuscular Hemoglobin 32.7 H 28.0-32.0 pg Mean Corpuscular Hemoglobin Concent 33.3 32.0-36.0 g/dL Red Cell Distribution Width 14.0 11.8-14.3 % Platelet Count 282 140-450 10^3/uL Mean Platelet Volume 8.1 6.9-10.8 fL Neutrophils (%) (Auto) 86.3 H 37.0-80.0 % Lymphocytes (%) (Auto) 9.0 L 10.0-50.0 % Monocytes (%) (Auto) 4.0 0.0-12.0 % Eosinophils (%) (Auto) 0.2 0.0-7.0 % Basophils (%) (Auto) 0.5 0.0-2.0 % Neutrophils # (Auto) 11.8 H 1.6-8.6 10 ^3/uL Lymphocytes # (Auto) 1.2 0.4-5.4 10 ^3/uL Monocytes # (Auto) 0.5 0-1.3 10 ^3/uL Eosinophils # (Auto) 0 0-0.8 10 ^3/uL Basophils # (Auto) 0.1 0-0.2 10 ^3/uL Nucleated Red Blood Cells 0.0 % Sodium Level 140 136-145 mmol/L Potassium Level 4.1 3.5-5.1 mmol/L Chloride Level 106 98-107 mmol/L Carbon Dioxide Level 27 20-31 mmol/L Anion Gap 7 5-15 Blood Urea Nitrogen 11 9-23 mg/dL Creatinine 1.13 0.700-1.30 mg/dL Glomerular Filtration Rate Calc 66 >90 mL/min BUN/Creatinine Ratio 9.7 L 10.0-20.0 Serum Glucose 143 H 74-106 mg/dL Calcium Level 9.4 8.7-10.4 mg/dL Assessment/Plan Assessment/Plan Acute toxic versus metabolic encephalopathy possibly from seizure activity Seizures possibly due to chronic strokes Breakthrough seizure Possible vascular dementia? - ordered head CT: No acute intracranial process. 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 - MRI from 03/13/2024 shows: Small chronic lacunar infarcts in the bilateral thalami. Small chronic infarcts in the right cerebellum. Mild periventricular and deep white matter T2 FLAIR hyperintensities. - loaded with 1000 mg IV Keppra, followed by IV Keppra 500 mg b.i.d. - IV Ativan as needed for seizures - neurology consulted - seizure precautions, aspiration precautions - ordered UA, UDS, blood alcohol levels, lactic acid - PT evaluation Bilateral shoulder pain; chronic left shoulder fracture? - ordered shoulder x-rays - shoulder CT from 11/26/2023 showed severely comminuted impacted fracture of the left proximal humerus with multiple displaced fractures competence there are fracture competence involving the surgical neck, greater tuberosity, lesser tuberosity, and humeral head. There is mild calcification/attempted callus formation along the lateral aspect of the fracture site. There is fracture deformity at the posterior glenoid, appears larger compared to the prior CT exam. Soft tissue swelling adjacent to the fracture site. History of chronic multiple stroke? Hypertension - aspirin 81 mg - atorvastatin 40 mg PUD prophylaxis: protonix 40mg DVT prophylaxis: SCDs Goals of care: Full code, discussed for >16 minutes on 07/16/2024 Plan discussed with patient Plan discussed with Dr. Pelayo Plan discussed with: Patient, Other (RN) My Orders Orders - ARACELY VALENTINO RESIDENT Procedure Category Date Status Time Admit ADMIT 07/16/24 Transmitted 23:40 Code Status CODE 07/16/24 Transmitted 23:40 Vital Signs NEHAL 07/16/24 Transmitted 23:40 Review Orders With NEHAL 07/16/24 Transmitted Adm. 23:40 Regular Diet DIET 07/17/24 Transmitted Breakfast Acetaminophen Tablet PHA 07/16/24 Transmitted (Tylenol Tablet) 23:45 Notify Md Of Changes [facility] 07/16/24 Transmitted From Base 23:40 Advance Directive NEHAL 07/16/24 Transmitted 23:40 Urinalysis LAB 07/16/24 Transmitted 23:40 Patient Condition ORDERS 07/16/24 Transmitted 23:40 Allergies NEHAL 07/16/24 Transmitted 23:40 Drug Screen LAB 07/16/24 Transmitted 23:40 Sequential NEHAL 07/16/24 Transmitted Compression Device Notify Md Of Changes [facility] 07/16/24 Transmitted From Base 23:40 Electrocardigram EKG 07/16/24 Transmitted 23:40 Drug Screen LAB 07/16/24 Transmitted 23:40 Lactic Acid W/ Reflex LAB 07/16/24 Transmitted Order 23:40 Chest Portable XY 07/16/24 Transmitted 23:40 Date of Service: Jul 16, 2024 Billing Provider: KELECHI PELAYO MD Common Visit Codes: [id number] INP/OBS CARE (HIGH) Secondary Visit Codes: [id number] CARE PLAN 30 MINUTES ARACELY VALENTINO RESIDENT Jul 16, 2024 23:44 KELECHI PELAYO MD Jul 18, 2024 00:18
[2024-07-16] MEDS ORDERED: ACETAMINOPHEN 325 MG TAB PO PRN (23:45)
[2024-07-17] VITALS (8 sets, daily range): BP systolic 98–126; BP diastolic 27–71; PULSE 54–64; RESP 16–20; TEMP 98.4–99.4; O2SAT 95–98
[2024-07-17] MEDS: SODIUM CHLORIDE 0.9% 500 ML IV ONE (01:19)
--- NOTE | 2024-07-17 01:28 | DVH ---
CHEST RADIOGRAPH Indication: cough Technique: Single frontal view of the chest was obtained Comparison: XY CHEST PORTABLE on DOS: 03/12/24, XY CHEST XRAY 1 VIEW on DOS: 08/21/23, XY CHEST PORTABL E on DOS: 11/18/22 FINDINGS: Lines and Tubes: None Lungs: Clear Pleura: No effusion. No pneumothorax. Cardiomediastinal contours: Unremarkable Bones: Unremarkable IMPRESSION: Clear lungs.
[2024-07-17 02:50] LABS: Urine Bacteria None Seen /hpf (None Seen)
[2024-07-17 03:31] LABS: Urine Blood Negative /uL (Negative); Urine Clarity Clear (Clear); Urine Color Yellow (Yellow); Urine Mucus FEW (None Seen); Urine Protein, UAD TRACE (Negative); Urine Squamous Epithelial Cell None Seen /hpf (<5); Urine Urobilinogen Normal (Negative); Urine WBC 1 /HPF (0-3)
[2024-07-17 03:45] LABS: Base Excess -15.7 mmol/L (-2.0-3.0)
[2024-07-17] MEDS ORDERED: LORazepam 2MG/ML-1ML VIAL IV PRN ×2 (03:45→23:15)
[2024-07-17 03:46] LABS: Amphetamine Screen, Urine Neg (NEGATIVE); Barbiturate Scree,Urine Neg (NEGATIVE); Benzodiazephine Screen, Urine Neg (NEGATIVE); Cannabinoid Screen, Urine Pos (NEGATIVE); Cocaine Screen, Urine Neg (NEGATIVE); Opiate Scree,Urine Neg (NEGATIVE); Phencyclidine Screen, Urine Neg (NEGATIVE)
--- NOTE | 2024-07-17 04:18 | DVH ---
CHEST RADIOGRAPH Indication: Aspiration Technique: Single frontal view of the chest was obtained Comparison: XY CHEST PORTABLE on DOS: 07/17/24, XY CHEST PORTABLE on DOS: 03/12/24, XY CHEST XRAY 1 VIE W on DOS: 08/21/23 IMPRESSION: There is hilar prominence. The heart appears normal in size. Coarsened interstitial markings withou t focal airspace opacity, effusion, or pneumothorax. Tortuous aorta.
[2024-07-17] MEDS: SODIUM BICARB 8.4% 50Meq/50ml SYR Vial IV ONE (04:30)
[2024-07-17 04:31] LABS: Lactic Acid w/Reflex 7.5 mmol/L (0.4-2.0)
[2024-07-17] MEDS: PIPERACILLIN-TAZOB 3.375GM 100 ML IV ONE (05:02)
[2024-07-17] MEDS: levETIRAcetam 1000 mg/100ml 100 ML IV ONE (05:02)
[2024-07-17] MEDS: SODIUM CHLORIDE 0.9% 250 ML IV ONE (05:42)
[2024-07-17 07:44] LABS: Basophils # (auto) 0 10 ^3/uL (0-0.2); Basophils % (auto) 0.3 % (0.0-2.0); Eosinophils # (auto) 0 10 ^3/uL (0-0.8); Eosinophils % (auto) 0.4 % (0.0-7.0); Hematocrit 42.5 % (41.0-53.0); Hemoglobin 14.1 g/dL (13.5-17.5); Lymphocytes # (auto) 4.2 10 ^3/uL (0.4-5.4); Lymphocytes % (auto) 37.2 % (10.0-50.0); Mean Corpuscular Hgb Conc. 33.1 g/dL (32.0-36.0); Mean Corpuscular Volume 99.7 fL (80.0-100.0); Monocytes # (auto) 0.9 10 ^3/uL (0-1.3); Monocytes % (auto) 8.4 % (0.0-12.0); Neutrophils # (auto) 6.1 10 ^3/uL (1.6-8.6); Neutrophils % (auto) 53.7 % (37.0-80.0); Nucleated Red Blood Cells % 0.1 %; Platelet Count (auto) 272 10^3/uL (140-450); Red Blood Cells 4.27 10^6/uL (4.5-5.90); Red Cell Distribution Width 13.9 % (11.8-14.3); White Blood Cell 11.3 10^3/uL (4.4-10.8)
[2024-07-17] MEDS: PANTOPRAZOLE 40 MG/10 ML VIAL INJ IV SCH (11:21)
[2024-07-17] MEDS: ASPirin 81 mg TAB PO SCH (11:22)
--- NOTE | 2024-07-17 13:25 | DVH ---
CLINICAL INDICATION: FRACTURE TECHNIQUE: XY R SHOULDER 2+ VIEW XRAY Comparison: XY L SHOULDER 2+ VIEW XRAY on DOS: 08/21/23, XY L SHOULDER 1V XRAY on DOS: 08/21/23 FINDINGS/IMPRESSION: : There is no evidence of acute fracture or dislocation. Moderate to severe degenerative changes.
--- NOTE | 2024-07-17 13:27 | DVH ---
CLINICAL INDICATION: FRACTURE TECHNIQUE: XY L SHOULDER 2+ VIEW XRAY Comparison: XY L SHOULDER 2+ VIEW XRAY on DOS: 08/21/23, XY L SHOULDER 1V XRAY on DOS: 08/21/23 FINDINGS/IMPRESSION: : Chronic fracture /deformity of the proximal humeral head. Superimposed acute injury is not completely excluded. Clinical correlation advised. No joint dislocation. Severe degenerative changes and diffuse osteopenia.
--- NOTE | 2024-07-17 14:07 | DVH ---
EXAM: CT HEAD WITHOUT CONTRAST INDICATION: seizure TECHNIQUE: CT of the head without intravenous contrast. Radiation dose : 1. Head: CT Dose: CTDI volume is 49.04 mGy. Dose-length product is 911.9 mGy*cm The dose indicators for CT are the volume computed tomography (CT) dose index (CTDIvol) and the dose length product (DLP), and are measured in units of mGy and mGy-cm, respectively. These indicators are not patient dose, but values generated from the CT scanner acquisition factors. The report includes radiation exposure data for exposures received during this examination. COMPARISON: CT HEAD WITHOUT CONTRAST on DOS: 07/16/24, CT HEAD WITHOUT CONTRAST on DOS: 03/12/24, CT CE RVICAL WITHOUT CONTRAST on DOS: 03/12/24, CT HEAD WITHOUT CONTRAST on DOS: 08/21/23 FINDINGS: No intracranial hemorrhage or extra-axial fluid collections. Moderate old right occipital infarct, st able. Old right thalamic infarct, stable. No subarachnoid hemorrhage no hydrocephalus. 4th ventricle is normal. No acute sinusitis. Old left thalamic lacunar infarct, stable IMPRESSION: 1. Multiple infarcts, stable and old in nature 2. No intracranial hemorrhage 3. No hydrocephalus 4. No subdural hematoma Radiation optimization: All CT scans at this facility use at least one of these dose optimization norma hniques: Automated exposure control mA and/or kV adjustment per patient size (includes targeted exams where dose is matched to clinical indication) or iterative reconstruction.
--- NOTE | 2024-07-17 17:59 | DVHPNRES ---
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 EMS left before further information could be obtained from them, per patient he does not remember why he is in the hospital or how he got here. Patient is alert and oriented in 4 spheres at the time of this interview. On review of systems, he is complaining of bilateral shoulder pain, fatigue and increased urinary frequency in the last 1 week. In the ER he was noted to have a WBC count of 13.7, hemoglobin 14.7, GFR 66 and serum creatinine 1.13. Per patient, he was last hospitalized 2 months ago after he sustained a mechanical fall. 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, left vertebral artery occlusion, dyslipidemia, hypertension Past Surgical History Denies Past Social History Smoking: Smokes 1-2 pipes per day for the past 3-5 years Alcohol: Denies Drugs: Denies Objective vital signs Vital Sign Date Time Temp Pulse Resp B/P (MAP) Pulse Ox O2 Delivery O2 Flow Rate FiO2 07/17/24 17:06 99.4 58 18 107/27 (53) 96 99.4 07/17/24 01:20 Room Air* 0 21 Total Intake and Output 07/16/24 07/16/24 07/17/24 15:00 23:00 07:00 Intake Total 200 ml Output Total 200 ml Balance 0 ml medications Current Medications Medications Dose Ordered Sig/Saarh Beth Route Start Time Stop Time Status Last Admin Dose Admin Acetaminophen 650 mg Q6HP PRN PO 07/16/24 23:45 Levetiracetam 100 ml @ 400 mls/hr BID IV 07/17/24 22:00 Lorazepam 1 mg Q5MINP PRN IV 07/17/24 03:45 Atorvastatin Calcium 40 mg HS PO 07/17/24 22:00 Aspirin 81 mg DAILY PO 07/17/24 10:00 07/17/24 11:22 81 MG Pantoprazole Sodium 40 mg DAILY IV 07/17/24 10:00 07/17/24 11:21 40 MG Examination General Appearance: Alert, drowsy, confused HEENT: Atraumatic, PERRLA, EOMI Respiratory: Normal air movement Cardiovascular: Regular rate, Normal S1, Normal S2 Abdominal: Normal bowel sounds, Soft, No tenderness Extremities: No clubbing, No edema Skin: No rashes, No significant lesion Neuro: Normal gait, Normal speech, Strength at 5/5 X4 ext, Sensation intact Psych/Mental Status: Mental status NL, Mood NL laboratory and microbiology Laboratory Tests 07/17/24 04:01 07/16/24 18:51 Test 07/16/24 18:51 Range/Units Serum Glucose 143 H 74-106 mg/dL Problem List/Assessment/Plan Problem List/Assessment/Plan Acute toxic versus metabolic encephalopathy possibly from seizure activity Seizures possibly due to chronic strokes Breakthrough seizure Possible vascular dementia? Cannabinoid overuse - ordered head CT: No acute intracranial process. 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 - MRI from 03/13/2024 shows: Small chronic lacunar infarcts in the bilateral thalami. Small chronic infarcts in the right cerebellum. Mild periventricular and deep white matter T2 FLAIR hyperintensities. - loaded with 1000 mg IV Keppra, followed by IV Keppra 500 mg b.i.d. - IV Ativan as needed for seizures - neurology consulted MRI ordered: patient is not be able to stay still for the image - seizure precautions, aspiration precautions - ordered UA, UDS, blood alcohol levels: + for CBD lactic acidosis is trending down - PT evaluation Bilateral shoulder pain; chronic left shoulder fracture? - ordered shoulder x-rays: old fractures, new lesions cannot be ruled out, further exam will be done when patient is more awake - shoulder CT from 11/26/2023 showed severely comminuted impacted fracture of the left proximal humerus with multiple displaced fractures competence there are fracture competence involving the surgical neck, greater tuberosity, lesser tuberosity, and humeral head. There is mild calcification/attempted callus formation along the lateral aspect of the fracture site. There is fracture deformity at the posterior glenoid, appears larger compared to the prior CT exam. Soft tissue swelling adjacent to the fracture site. History of chronic multiple stroke? Hypertension - aspirin 81 mg - atorvastatin 40 mg PUD prophylaxis: protonix 40mg DVT prophylaxis: SCDs Goals of care: Full code, discussed for >16 minutes on 07/16/2024 Plan discussed with patient Plan discussed with Dr. Gonzales Plan discussed with: Patient, Other (rn) My Orders My Orders Orders - ROSITA SALAMANCA Procedure Category Date Status Time Brain Head Wo Contrast MRI 07/17/24 Logged 08:42 Date of Service: Jul 17, 2024 Billing Provider: ANNETTE GONZALES MD Common Visit Codes: [id number] INP/OBS CARE(HIGH) ROSITA SALAMANCA Jul 17, 2024 17:59 ANNETTE GONZALES MD Jul 17, 2024 23:00
--- NOTE | 2024-07-17 21:38 | DVHINCON2 ---
Date of service: Jul 17, 2024 Referring Physician Darlene Reason for Consultation seizure History of Present Illness Mr. Corley is a 78 years old right-handed gentleman denies major medical background, he was brought to the [facility] on 07/16/24 with a chief complaint of altered level consciousness. At this time, the patient is alert, oriented to person, place, he knows year and the month, but is not able to provide history. The history is obtained from the chart review, his nurse and his sister I saw him on 08/22/2023 for new onset seizure, 03/13/2024 for ALOC/possible seizure Because of behavior changes, the patient was brought to the hospital on 07/16/2024, last night, the patient was had event where he was nonresponsive, the body was rigid and shaking with excessive secretions in the mouth. According to the ER note dated on 08/22/2023, he had new onset generalized tonic-clonic seizure witnessed in the [facility] Emergency room, and his sister related that was only seizure he had in his life. I recommended Keppra 500 mg b.id He denied a history of stroke symptoms, but previously a doctor said he did not have stroke. Though not reported, I think the patient had chronic strokes in his CT scan According to his sister, the patient was not on Keppra or seizure medication at home [phone] Urinalysis, 07/17/2024: Unremarkable UDS, 07/17/2024: Cannabinoids Plasma alcohol, 07/17/2024: Normal RPR, 08/12/2023: Nonreactive ABG, 07/17/2024: Metabolic acidosis WBC/Hb/PL/MCV, 07/17/2024: 11.3/14.1/272/99.7 Lactic acid, 07/17/2024: 7.5 BNP, 07/16/2024: Unremarkable Liver function tests, 03/12/2024: Unremarkable TG/CHO L/LDL/HDL, 08/22/2023: 95/129/71/45 TSH, 07/2023: 1.81 EEG, 08/26/23: Normal Echocardiogram, 08/22/2023: Limited study due to poor acaustic window Grossly normal left ventricular size and dimension. Normal left ventricular systolic function with mid ejection fraction 55%. No significant valve pathology was noted. No significant pericardial effusion was noted KIP, 08/25/2023: -No evidence of cardiac source of embolus was detected in the KIP study that was conducted today. -Testing for other causes of stroke including arrhythmia is warranted with event recorder for minimum of 2 weeks Carotid Doppler, 08/22/2023: 50-69% stenosis of the right internal carotid artery based on peak systolic velocity criteria. 50-69% stenosis of the left internal carotid artery based on peak systolic velocity criteria. Nonvisualization of the left vertebral artery (patient uncooperative X-ray, left shoulder, 08/21/2023: Mildly displaced fracture again noted in the proximal humeral head. CT head, 08/21/2023: No acute intracranial abnormalityn (I see chronic stroke in the right parietal and bilateral basal ganglia regions) CT, left shoulder, 08/23/2023: Comminuted and displaced fracture of the proximal humeral head. Nondisplaced fracture of the posterior glenoid. Moderate soft tis gaviota swelling and joint effusion CTA, neck, 08/25/2023: There is near complete occlusion of the left vertebral artery. The distal left vertebral artery may may be filled in a retrograde fashion by the basilar artery and right vertebral artery. Carotid is unre markable. I don't appreciate any fractures or dislocations MRI head, 08/22/23: No acute abnormal MRI findings of the brain. Encephalomalacia in the right occipital/medial posterior temporal lobe. Remote infarct in the bilateral thalamus MR head, 03/13/2024: No evidence of acute infarction, intracranial hemorrhage, mass effect or hydrocephalus. Right-sided mastoid effusion correlate for possible mastoiditis. Chronic infarcts as detailed above. Past Medical History Hard hearing Past Surgical History He denies surgeries Family History: FH: heart attack G8 MOTHER G8 FATHER Family History Heart attack Social History He smokes slightly, he denies history of drug or alcohol abuse Allergies: Coded Allergies: NO KNOWN ALLERGIES (Unverified , 04/09/24) Home Meds Active Scripts Ciprofloxacin Hcl (Cipro) 500 Mg Tab, 1 TAB PO BID, #20 TAB Prov:JAVY MAX MD 03/15/24 Amlodipine Besylate (Amlodipine Besylate) 10 Mg Tab, 1 TAB PO DAILY, #30 TAB 5 Refills Prov:ELISA NIELSON MD 08/26/23 Levetiracetam (KEPPRA TABLET) 500 Mg Tb, 500 MG PO BID for 30 Days, #60 TAB Prov:ELISA NIELSON MD 08/26/23 Hydrocodone-Acetaminophen (Hydrocodone Bitartrate/AC 5-325 mg) 1 Tab Tab, 1 TAB PO Q6HPRN PRN for 7 Days, #28 TAB Prov:ELISA NIELSON MD 08/26/23 Atorvastatin Calcium (ATORVASTATIN CALCIUM) 20 Mg Tab, 20 MG PO HS for 30 Days, #30 TAB Prov:ELISA NIELSON MD 08/26/23 Current Medications Current Medications Medications (Trade) Dose Ordered Sig/Sarah Beth Route PRN Reason Start Time Stop Time Status Last Admin Acetaminophen (Tylenol Tablet) 650 mg Q6HP PRN PO PAIN SCALE 1-3 OR TEMP>100.4 07/16/24 23:45 Levetiracetam 100 ml @ 400 mls/hr BID IV 07/17/24 22:00 Lorazepam (Ativan Inj) 1 mg Q5MINP PRN IV SEIZURES 07/17/24 03:45 Atorvastatin Calcium (Lipitor) 40 mg HS PO 07/17/24 22:00 Aspirin 81 mg DAILY PO 07/17/24 10:00 07/17/24 11:22 Pantoprazole Sodium (Protonix) 40 mg DAILY IV 07/17/24 10:00 07/17/24 11:21 Review of Systems As above, the other systems are negative Vital Signs Vital Signs Date Time Temp Pulse Resp B/P (MAP) Pulse Ox O2 Delivery O2 Flow Rate FiO2 07/17/24 17:06 99.4 58 18 107/27 (53) 96 99.4 07/17/24 08:00 Room Air* 0 21 Physical Exam GENERAL EXAM: General: the patient is well developed and nourished. No acute distress. HEENT: Normocephalic, neck is supple, no carotid bruits. No mass RESPIRATORY: Normal respiratory effort with symmetrical lung expansion. Lungs clear to auscultation. CARDIOVASCULAR: Regular rate and rhythm with no murmurs. S1, S2. ABDOMEN: Soft, nontender, normal bowel sound NEUROLOGICAL: MENTAL STATUS: Awake and alert. Oriented to person, place, he knows the year and the month, poor historian SPEECH, LANGUAGE, HIGHER CORTICAL FUNCTION: no aphasia or dysathria. CRANIAL NERVES: #2: Intact visual ragland to confrontation. The optic discs were sharp. #3,4,6: Pupils are equal, round and reactive. EOMs full and conjugate. Mild bilateral gaze evoked nystagmus. #5: Facial sensation intact in all three divisions bilaterally. Mandibular strength intact. #7: Facial muscles symmetrical and strength intact. #8: Hearing grossly normal to voice. #9,10: Uvula and soft palate rise in the midline. Swallow and voice are normal. #11: Trapezius and sternomastoid strength intact bilaterally. #12: Tongue midline. No fasciculations or atrophy. SENSATION: Sensation to touch and pinprick is normal. MOTOR: Normal tone in the upper and lower extremity. Normal muscle bulk. No fasc iculations. No abnormal movements or posturing. Muscle strength of the major groups in the extremities is 5/5 REFLEXES: Deep tendon reflexes are symmetrical. No pathological reflexes. CEREBELLAR/COORDINATION: Finger to nose is normal in the right upper extremity GAIT/STATION: deferred Labs/Diagnostic Data Labs Test 07/17/24 09:51 07/17/24 04:01 07/17/24 03:22 07/17/24 03:20 Range/Units Lactic Acid Level 1.5 0.4-2.0 mmol/L White Blood Count 11.3 H 4.4-10.8 10^3/uL Red Blood Count 4.27 L 4.5-5.90 10^6/uL Hemoglobin 14.1 13.5-17.5 g/dL Hematocrit 42.5 41.0-53.0 % Mean Corpuscular Volume 99.7 80.0-100.0 fL Mean Corpuscular Hemoglobin 33.0 H 28.0-32.0 pg Mean Corpuscular Hemoglobin Concent 33.1 32.0-36.0 g/dL Red Cell Distribution Width 13.9 11.8-14.3 % Platelet Count 272 140-450 10^3/uL Mean Platelet Volume 8.8 6.9-10.8 fL Neutrophils (%) (Auto) 53.7 37.0-80.0 % Lymphocytes (%) (Auto) 37.2 10.0-50.0 % Monocytes (%) (Auto) 8.4 0.0-12.0 % Eosinophils (%) (Auto) 0.4 0.0-7.0 % Basophils (%) (Auto) 0.3 0.0-2.0 % Neutrophils # (Auto) 6.1 1.6-8.6 10 ^3/uL Lymphocytes # (Auto) 4.2 0.4-5.4 10 ^3/uL Monocytes # (Auto) 0.9 0-1.3 10 ^3/uL Eosinophils # (Auto) 0 0-0.8 10 ^3/uL Basophils # (Auto) 0 0-0.2 10 ^3/uL Nucleated Red Blood Cells 0.1 % Creatine Kinase 228 H 46-171 U/L Plasma/Serum Blood Alcohol < 3.0 <10 mg/dL POC Glucose 89 70-106 mg/dl Blood Gas Specimen Type Arterial Blood Gas Sample Site Left radial Blood Gas Patient Temperature 37.0 Arterial Blood Date Drawn [id number] Arterial Blood pH 7.150 *L 7.350-7.450 Arterial Blood Partial Pressure CO2 35.7 35.0-48.0 mmHg Arterial Blood Partial Pressure O2 87.9 83.0-108.0 mmHg Arterial Blood HCO3 12.2 L 21.0-28.0 mmol/L Arterial Blood Oxygen Saturation 93.3 L 94.0-98.0 % Arterial Blood Base Excess -15.7 L -2.0-3.0 mmol/L Arterial Blood Oxyhemoglobin 91.2 L 94.0-98.0 % Arterial Blood Carboxyhemoglobin 1.9 H 0.5-1.5 % Arterial Blood Methemoglobin 0.3 0.0-1.5 % Zeus Test Modified Blood Gas Total Hemoglobin 14.70 13.5-17.5 g/dL Blood Gas Modality Room air FiO2 % 21.0 Blood Gas Critical Value Read Back Yes Blood Gas Notified Whom kellie Colon dnp Blood Gas Notified Time [id number] Blood Gas Notified By pamela Hernandezhost/hostess Test 07/17/24 02:48 07/16/24 18:51 Range/Units Urine Color Yellow Yellow Urine Clarity Clear Clear Urine pH 7.0 5.0-9.0 Urine Specific [place] 1.020 1.001-1.035 Urine Protein Trace H Negative Urine Ketones Negative Negative Urine Blood Negative Negative /uL Urine Nitrite Negative Negative Urine Bilirubin Negative Negative Urine Urobilinogen Normal Negative mg/dL Urine Leukocyte Esterase Negative Negative /uL Urine RBC 8 0 - 3 /hpf Urine Microscopic WBC 1 0-3 /HPF Urine Squamous Epithelial Cells None seen <5 /hpf Urine Bacteria None seen None Seen /hpf Urine Mucus Few None Seen Urine Glucose Normal Normal mg/dL Urine Opiates Screen Neg NEGATIVE Urine Fentanyl Screen Neg NEGATIVE Urine Barbiturates Screen Neg NEGATIVE Urine Phencyclidine Screen Neg NEGATIVE Urine Amphetamines Screen Neg NEGATIVE Urine Benzodiazepines Screen Neg NEGATIVE Urine Cocaine Screen Neg NEGATIVE Urine Cannabinoids Screen Pos NEGATIVE Sodium Level 140 136-145 mmol/L Potassium Level 4.1 3.5-5.1 mmol/L Chloride Level 106 98-107 mmol/L Carbon Dioxide Level 27 20-31 mmol/L Anion Gap 7 5-15 Blood Urea Nitrogen 11 9-23 mg/dL Creatinine 1.13 0.700-1.30 mg/dL Glomerular Filtration Rate Calc 66 >90 mL/min BUN/Creatinine Ratio 9.7 L 10.0-20.0 Serum Glucose 143 H 74-106 mg/dL Calcium Level 9.4 8.7-10.4 mg/dL Assessment Altered mental status Seizure activity ? Metabolic encephalopathy Seizure since 08/2023, likely secondary to chronic stroke Chronic multiple strokes He does not drive Plan/Recommendation Monitoring Supportive treatment Telemetry [facility] for seizure breakthrough Keppra 500 mg twice daily Aspirin 81 mg daily Lipitor 20 mg daily Up to chair Physical therapy DVT prophylaxis GI prophylaxis Up to chair Physical therapy Prognosis: Poor This medical document was created using an electronic medical record system with [email or web address] dictation system. Although this document has been carefully reviewed, there may still be some phonetic and typographical errors. These areas are purely typographical due to imperfections of the software programs, and do not reflect any compromise in the patient's medical care Plan discussed with: Patient, Other TYRON HUMPHRIES MD Jul 17, 2024 21:38
[2024-07-17] MEDS: ATORVASTATIN 20 MG TAB PO SCH ×2 (21:43→23:44)
[2024-07-17] MEDS: levETIRAcetam 500 mg/100ml 100 ML IV SCH (21:43)
[2024-07-18] VITALS (8 sets, daily range): BP systolic 109–127; BP diastolic 41–64; PULSE 54–70; RESP 16–20; TEMP 98.2–98.3; O2SAT 96–99
[2024-07-18 06:36] LABS: Basophils # (auto) 0.1 10 ^3/uL (0-0.2); Basophils % (auto) 0.6 % (0.0-2.0); Eosinophils # (auto) 0.1 10 ^3/uL (0-0.8); Eosinophils % (auto) 0.9 % (0.0-7.0); Hematocrit 41.8 % (41.0-53.0); Lymphocytes # (auto) 2.5 10 ^3/uL (0.4-5.4); Lymphocytes % (auto) 29.9 % (10.0-50.0); Mean Corpuscular Hemoglobin 32.7 pg (28.0-32.0); Mean Corpuscular Hgb Conc. 33.5 g/dL (32.0-36.0); Mean Corpuscular Volume 97.9 fL (80.0-100.0); Monocytes # (auto) 0.7 10 ^3/uL (0-1.3); Monocytes % (auto) 8.3 % (0.0-12.0); Neutrophils % (auto) 60.3 % (37.0-80.0); Platelet Count (auto) 260 10^3/uL (140-450); Red Blood Cells 4.27 10^6/uL (4.5-5.90); White Blood Cell 8.3 10^3/uL (4.4-10.8)
[2024-07-18 06:55] LABS: Alanine Aminotransferase 11 U/L (7-40); Alkaline Phosphatase 74 U/L (46-116); Anion Gap 8 (5-15); Aspartate Aminotransferase 19 U/L (13-40); BUN/Creatinine Ratio 11.8 (10.0-20.0); Blood Urea Nitrogen 14 mg/dL (9-23); Calcium 9.1 mg/dL (8.7-10.4); Carbon Dioxide 25 mmol/L (20-31); Glucose 81 mg/dL (74-106); Potassium 3.5 mmol/L (3.5-5.1); Sodium 141 mmol/L (136-145)
[2024-07-18 06:56] LABS: Bilirubin, Total 0.8 mg/dL (0.2-1.0)
[2024-07-18 07:06] LABS: Chloride 108 mmol/L (98-107)
--- NOTE | 2024-07-18 16:23 | DVH ---
EXAM: MRI BRAIN HEAD WO CONTRAST HISTORY: rule out acute stroke COMPARISON: MRI BRAIN HEAD WO CONTRAST on DOS: 03/13/24, MRI BRAIN HEAD WO CONTRAST on DOS: 08/22/23 TECHNIQUE: MRI was performed utilizing multiple appropriate imaging planes and pulse sequences. FINDINGS: SUPRATENTORIAL REGION: No evidence for acute ischemia or intracranial hemorrhage. Small right occipi nohemi encephalomalacia reflecting sequela of an old infarct. Small old lacunar infarcts are noted in th e bilateral thalami. POSTERIOR FOSSA: Unremarkable. BRAINSTEM: Unremarkable. SELLAR/SUPRASELLAR REGION: Unremarkable. VENTRICLES, CISTERNS, SULCI: Age-appropriate. ORBITS: Unremarkable. PARANASAL SINUSES: Mild ethmoid sinus mucosal thickening noted. MASTOID AIR CELLS: Moderate-sized right mastoid effusion. VASCULATURE: Unremarkable. BONES/ SOFT TISSUES: Unremarkable. OTHER: None. IMPRESSION: 1. No acute intracranial process. 2. Small old right occipital and bilateral thalami infarcts. 3. Moderate right mastoid effusion. 4. Mild ethmoid sinus mucosal thickening.
--- NOTE | 2024-07-18 20:03 | DVHPN2 ---
Subjective The patient is seen and examined at bedside. The patient had EEG done at bedside. No seizure activity overnight. Reviewed: Care Plan, H&P, Labs, Medications, Previous Orders, Radiology Changes from previous H/P or p: No Changes Eyes: No Pain, No Vision change, No Conjunctivae inflammation, No Eyelid inflammation, No Other, No Redness ENT: No Ear pain, No Ear discharge, No Nose pain, No Nose discharge, No Nose congestion, No Mouth pain, No Mouth swelling, No Throat pain, No Throat swelling, No Other Cardiovascular: No Chest Pain, No Palpitations, No Orthopnea, No Paroxysmal Noc. Dyspnea, No Edema, No Lt Headedness, No Other Respiratory: No Cough, No Dry, No Shortness of breath, No SOB with excertion, No Wheezing, No Hemoptysis, No Pleuritic Pain, No Sputum, No Other Gastrointestinal: No Nausea, No Vomiting, No Abdominal Pain, No Diarrhea, No Constipation, No Melena, No Hematochezia, No Other Genitourinary: No Dysuria; Frequency; No Incontinence, No Hematuria, No Retention, No Other Musculoskeletal: No other, No neck pain; shoulder pain; No arm pain, No back pain, No hand pain, No leg pain, No foot pain Skin: No Rash, No Lesions, No Jaundice, No Bruising, No Other Objective Vitals Vital Signs Date Time Temp Pulse Resp B/P (MAP) Pulse Ox O2 Delivery O2 Flow Rate FiO2 07/18/24 17:00 98.2 58 20 127/41 (69) 99 98.2 07/18/24 08:00 Room Air* 0 21 Intake/Output Intake and Output 07/18/24 07:00 Intake Total 250 ml Output Total 300 ml Balance -50 ml Intake Oral 250 ml Output Urine Total 300 ml # Voids 1 # Bowel Movements 1 General Appearance: Alert, Cooperative, No acute distress HEENT: Atraumatic, PERRLA, EOMI, Mucous membr. moist/pink Neck: Supple Lungs: Clear to auscultation, Normal air movement Cardiovascular: Regular rate, Normal S1, Normal S2, No murmurs, Gallops, Rubs Abdomen: Normal bowel sounds, Soft, No tenderness Neuro: Cranial nerves 3-12 NL Psych/Mental Status: Mental status NL Medications Current Medications Medications Dose Ordered Sig/Sarah Beth Route Start Time Stop Time Status Last Admin Dose Admin Acetaminophen 650 mg Q6HP PRN PO 07/16/24 23:45 Levetiracetam 100 ml @ 400 mls/hr BID IV 07/17/24 22:00 07/18/24 09:38 400 MLS/HR Lorazepam 1 mg Q5MINP PRN IV 07/17/24 03:45 Aspirin 81 mg DAILY PO 07/17/24 10:00 07/18/24 09:39 81 MG Pantoprazole Sodium 40 mg DAILY IV 07/17/24 10:00 07/18/24 09:39 40 MG Atorvastatin Calcium 20 mg HS PO 07/17/24 23:15 07/17/24 23:44 20 MG Lorazepam 1 mg Q5MINP PRN IV 07/17/24 23:15 Laboratory Results Laboratory Tests 07/18/24 05:50 Chemistry Test 07/18/24 05:50 Albumin 4.0 g/dL (3.2-4.8) Calcium Level 9.1 mg/dL (8.7-10.4) Total Protein 6.0 g/dL (5.7-8.2) LFT Test 07/18/24 05:50 Alanine Aminotransferase (ALT) 11 U/L (7-40) Alkaline Phosphatase 74 U/L (46-116) Aspartate Amino Transferase (AST) 19 U/L (13-40) Total Bilirubin 0.8 mg/dL (0.2-1.0) Urinalysis Test 07/17/24 02:48 Urine Color Yellow (Yellow) Urine Clarity Clear (Clear) Urine pH 7.0 (5.0-9.0) Urine Specific [place] 1.020 (1.001-1.035) Urine Protein Trace (Negative) H Urine Ketones Negative (Negative) Urine Blood Negative /uL (Negative) Urine Nitrite Negative (Negative) Urine Bilirubin Negative (Negative) Urine Urobilinogen Normal mg/dL (Negative) Urine Leukocyte Esterase Negative /uL (Negative) Urine RBC 8 /hpf (0 - 3) Urine Microscopic WBC 1 /HPF (0-3) Urine Squamous Epithelial Cells None seen /hpf (<5) Urine Bacteria None seen /hpf (None Seen) Urine Mucus Few (None Seen) Urine Glucose Normal mg/dL (Normal) Labs and/or images reviewed: Labs reviewed by me Assessment/Plan Assessment/Plan Acute toxic versus metabolic encephalopathy possibly from seizure activity Seizures possibly due to chronic strokes Breakthrough seizure Possible vascular dementia? Cannabinoid overuse - ordered head CT: No acute intracranial process. 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 - MRI from 03/13/2024 shows: Small chronic lacunar infarcts in the bilateral thalami. Small chronic infarcts in the right cerebellum. Mild periventricular and deep white matter T2 FLAIR hyperintensities. - loaded with 1000 mg IV Keppra, followed by IV Keppra 500 mg b.i.d. - IV Ativan as needed for seizures - neurology consulted MRI ordered: patient is not be able to stay still for the image - seizure precautions, aspiration precautions - ordered UA, UDS, blood alcohol levels: + for CBD lactic acidosis is trending down - PT evaluation Bilateral shoulder pain; chronic left shoulder fracture? - ordered shoulder x-rays: old fractures, new lesions cannot be ruled out, further exam will be done when patient is more awake - shoulder CT from 11/26/2023 showed severely comminuted impacted fracture of the left proximal humerus with multiple displaced fractures competence there are fracture competence involving the surgical neck, greater tuberosity, lesser tuberosity, and humeral head. There is mild calcification/attempted callus formation along the lateral aspect of the fracture site. There is fracture deformity at the posterior glenoid, appears larger compared to the prior CT exam. Soft tissue swelling adjacent to the fracture site. History of chronic multiple stroke? Hypertension - aspirin 81 mg - atorvastatin 40 mg PUD prophylaxis: protonix 40mg DVT prophylaxis: SCDs Goals of care: Full code, discussed for >16 minutes on 07/16/2024 Continuing current management. Waiting for EEG and neurology consulted. This medical document was created using an electronic medical record system with [employer] computerized dictation system. Although this document has been carefully reviewed, there may still be some phonetic and typographical errors. These areas are purely typographical due to imperfections of the software programs, and do not reflect any compromise in the patient's medical care. Plan discussed with: Patient Date of Service: Jul 18, 2024 Billing Provider: ANNETTE SIMS MD Common Visit Codes: [id number] INP/OBS CARE(HIGH) ANNETTE SIMS MD Jul 18, 2024 20:03
--- NOTE | 2024-07-18 22:59 | DVHPN2 ---
Progress Note - Dictate Date Seen: Jul 18, 2024 Has the PT tested + for MRSA If YES, has PT been informed?: No Medical Necessity Reason Pt with a Central, PICC or Fol: No Subjective Mr. Corley is a 78 years old right-handed gentleman denies major medical background, he was brought to the [facility] on 07/16/24 with a chief complaint of altered level consciousness. I have seen and examined the patient, I have talked to his nurse and sitter, he was doing fine, awake, oriented x3, no seizure activity on the floor Urinalysis, 07/17/2024: Unremarkable UDS, 07/17/2024: Cannabinoids Plasma alcohol, 07/17/2024: Normal RPR, 08/12/2023: Nonreactive ABG, 07/17/2024: Metabolic acidosis WBC/Hb/PL/MCV, 07/17/2024: 11.3/14.1/272/99.7 Lactic acid, 07/17/2024: 7.5 BNP, 07/16/2024: Unremarkable Liver function tests, 03/12/2024: Unremarkable TG/CHO L/LDL/HDL, 08/22/2023: 95/129/71/45 TSH, 07/2023: 1.81 EEG, 08/26/23: Normal Echocardiogram, 08/22/2023: Limited study due to poor acaustic window Grossly normal left ventricular size and dimension. Normal left ventricular systolic function with mid ejection fraction 55%. No significant valve pathology was noted. No significant pericardial effusion was noted KIP, 08/25/2023: -No evidence of cardiac source of embolus was detected in the KIP study that was conducted today. -Testing for other causes of stroke including arrhythmia is warranted with event recorder for minimum of 2 weeks Carotid Doppler, 08/22/2023: 50-69% stenosis of the right internal carotid artery based on peak systolic velocity criteria. 50-69% stenosis of the left internal carotid artery based on peak systolic velocity criteria. Nonvisualization of the left vertebral artery (patient uncooperative X-ray, left shoulder, 08/21/2023: Mildly displaced fracture again noted in the proximal humeral head. CT head, 08/21/2023: No acute intracranial abnormalityn (I see chronic stroke in the right parietal and bilateral basal ganglia regions) CT, left shoulder, 08/23/2023: Comminuted and displaced fracture of the proximal humeral head. Nondisplaced fracture of the posterior glenoid. 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 The distal left vertebral artery may may be filled in a retrograde fashion by the basilar artery and right vertebral artery. Carotid is unremarkable. I don't appreciate any fractures or dislocations MRI head, 08/22/23: No acute abnormal MRI findings of the brain. Encephalomalacia in the right occipital/medial posterior temporal lobe. Remote infarct in the bilateral thalamus MR head, 03/13/2024: No evidence of acute infarction, intracranial hemorrhage, mass effect or hydrocephalus. Right-sided mastoid effusion correlate for possible mastoiditis. Chronic infarcts as detailed above vital signs Vital Sign Date Time Temp Pulse Resp B/P (MAP) Pulse Ox O2 Delivery O2 Flow Rate FiO2 07/18/24 20:54 98.2 59 16 123/44 (70) 96 98.2 07/18/24 20:00 Room Air* 0 21 Total Intake and Output 07/17/24 07/17/24 07/18/24 15:00 23:00 07:00 Intake Total 150 ml 100 ml Output Total 300 ml Balance -150 ml 100 ml medications Current Medications Medications Dose Ordered Sig/Sarah Beth Route Start Time Stop Time Status Last Admin Dose Admin Acetaminophen 650 mg Q6HP PRN PO 07/16/24 23:45 Levetiracetam 100 ml @ 400 mls/hr BID IV 07/17/24 22:00 07/18/24 21:02 400 MLS/HR Lorazepam 1 mg Q5MINP PRN IV 07/17/24 03:45 Aspirin 81 mg DAILY PO 07/17/24 10:00 07/18/24 09:39 81 MG Pantoprazole Sodium 40 mg DAILY IV 07/17/24 10:00 07/18/24 09:39 40 MG Atorvastatin Calcium 20 mg HS PO 07/17/24 23:15 07/18/24 21:02 20 MG Lorazepam 1 mg Q5MINP PRN IV 07/17/24 23:15 objective General: the patient is well developed and nourished. No acute distress. MENTAL STATUS: Subjective SPEECH, LANGUAGE, HIGHER CORTICAL FUNCTION: no aphasia or dysathria. CRANIAL NERVES: Pupils are equal, round and reactive. EOMs full and conjugate. No nystagmus. Facial sensation intact in all three divisions bilaterally. Mandibular strength intact. Facial muscles symmetrical and strength intact. SENSATION: Sensation to touch and pinprick is normal. MOTOR: Normal tone in the upper and lower extremity. Normal muscle bulk. No fasciculations. No abnormal movements or posturing. Muscle strength of the major groups in the extremities is 5/5 REFLEXES: Deep tendon reflexes are symmetrical. No pathological reflexes. CEREBELLAR/COORDINATION: Finger to nose is normal in the right upper extremity GAIT/STATION: deferred laboratory and microbiology Laboratory Tests 07/18/24 05:50 Test 07/18/24 05:50 Range/Units Serum Glucose 81 74-106 mg/dL Problem List Altered mental status Seizure activity ? Metabolic encephalopathy Seizure since 08/2023, likely secondary to chronic stroke Chronic multiple strokes He does not drive Assessment/Plan Monitoring Supportive treatment Telemetry Ativan for seizure breakthrough Keppra 500 mg twice daily Aspirin 81 mg daily Lipitor 20 mg daily Up to chair Physical therapy DVT prophylaxis GI prophylaxis Up to chair Physical therapy This medical document was created using an electronic medical record system with [employer] dictation system. Although this document has been carefully reviewed, there may still be some phonetic and typographical errors. These areas are purely typographical due to imperfections of the software programs, and do not reflect any compromise in the patient's medical care Prognosis poor Plan discussed with: Patient, Other Total Time (mins): 35 TYRON HUMPHRIES MD Jul 18, 2024 22:59
[2024-07-19] VITALS (7 sets, daily range): BP systolic 111–146; BP diastolic 45–66; PULSE 57–74; RESP 16–19; TEMP 97.7–98.4; O2SAT 91–98
--- NOTE | 2024-07-19 10:42 | DVHPN2 ---
Progress Note - Dictate Date Seen: Jul 19, 2024 Has the PT tested + for MRSA If YES, has PT been informed?: No Medical Necessity Reason Pt with a Central, PICC or Fol: No Subjective Mr. Corley is a 78 years old right-handed gentleman denies major medical background, he was brought to the [facility] on 07/16/24 with a chief complaint of altered level consciousness. I have seen and examined the patient, I have talked to his nurse and sitter, he was doing fine, awake, oriented x3, no seizure activity Gait is fine Urinalysis, 07/17/2024: Unremarkable UDS, 07/17/2024: Cannabinoids Plasma alcohol, 07/17/2024: Normal RPR, 08/12/2023: Nonreactive ABG, 07/17/2024: Metabolic acidosis WBC/Hb/PL/MCV, 07/17/2024: 11.3/14.1/272/99.7 Lactic acid, 07/17/2024: 7.5 BNP, 07/16/2024: Unremarkable Liver function tests, 03/12/2024: Unremarkable TG/CHO L/LDL/HDL, 08/22/2023: 95/129/71/45 TSH, 07/2023: 1.81 EEG, 08/26/23: Normal Echocardiogram, 08/22/2023: Limited study due to poor acaustic window Grossly normal left ventricular size and dimension. Normal left ventricular systolic function with mid ejection fraction 55%. No significant valve pathology was noted. No significant pericardial effusion was noted KIP, 08/25/2023: -No evidence of cardiac source of embolus was detected in the KIP study that was conducted today. -Testing for other causes of stroke including arrhythmia is warranted with event recorder for minimum of 2 weeks Carotid Doppler, 08/22/2023: 50-69% stenosis of the right internal carotid artery based on peak systolic velocity criteria. 50-69% stenosis of the left internal carotid artery based on peak systolic velocity criteria. Nonvisualization of the left vertebral artery (patient uncooperative X-ray, left shoulder, 08/21/2023: Mildly displaced fracture again noted in the proximal humeral head. CT head, 08/21/2023: No acute intracranial abnormalityn (I see chronic stroke in the right parietal and bilateral basal ganglia regions) CT, left shoulder, 08/23/2023: Comminuted and displaced fracture of the proximal humeral head. Nondisplaced fracture of the posterior glenoid. 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 The distal left vertebral artery may may be filled in a retrograde fashion by the basilar artery and right vertebral artery. Carotid is unremarkable. I don't appreciate any fractures or dislocations MRI head, 08/22/23: No acute abnormal MRI findings of the brain. Encephalomalacia in the right occipital/medial posterior temporal lobe. Remote infarct in the bilateral thalamus MR head, 03/13/2024: No evidence of acute infarction, intracranial hemorrhage, mass effect or hydrocephalus. Right-sided mastoid effusion correlate for possible mastoiditis. Chronic infarcts as detailed above vital signs Vital Sign Date Time Temp Pulse Resp B/P (MAP) Pulse Ox O2 Delivery O2 Flow Rate FiO2 07/19/24 05:00 98.2 57 16 135/45 (75) 95 98.2 07/18/24 20:00 Room Air* 0 21 Total Intake and Output 07/18/24 07/18/24 07/19/24 15:00 23:00 07:00 Intake Total 100 ml 850 ml 480 ml Output Total 420 ml 520 ml Balance 100 ml 430 ml -40 ml medications Current Medications Medications Dose Ordered Sig/Sarah Beth Route Start Time Stop Time Status Last Admin Dose Admin Acetaminophen 650 mg Q6HP PRN PO 07/16/24 23:45 Levetiracetam 100 ml @ 400 mls/hr BID IV 07/17/24 22:00 07/19/24 08:50 400 MLS/HR Lorazepam 1 mg Q5MINP PRN IV 07/17/24 03:45 Aspirin 81 mg DAILY PO 07/17/24 10:00 07/19/24 08:50 81 MG Pantoprazole Sodium 40 mg DAILY IV 07/17/24 10:00 07/19/24 08:50 40 MG Atorvastatin Calcium 20 mg HS PO 07/17/24 23:15 07/18/24 21:02 20 MG Lorazepam 1 mg Q5MINP PRN IV 07/17/24 23:15 objective General: the patient is well developed and nourished. No acute distress. MENTAL STATUS: Subjective SPEECH, LANGUAGE, HIGHER CORTICAL FUNCTION: no aphasia or dysathria. CRANIAL NERVES: Pupils are equal, round and reactive. EOMs full and conjugate. No nystagmus. Facial sensation intact in all three divisions bilaterally. Mandibular strength intact. Facial muscles symmetrical and strength intact. SENSATION: Sensation to touch and pinprick is normal. MOTOR: Normal tone in the upper and lower extremity. Normal muscle bulk. No fasciculations. No abnormal movements or posturing. Muscle strength of the major groups in the extremities is 5/5 REFLEXES: Deep tendon reflexes are symmetrical. No pathological reflexes. CEREBELLAR/COORDINATION: Finger to nose is normal in the right upper extremity GAIT/STATION: deferred laboratory and microbiology Laboratory Tests 07/18/24 05:50 Test 07/18/24 05:50 Range/Units Serum Glucose 81 74-106 mg/dL Problem List Altered mental status Seizure activity ? Metabolic encephalopathy Seizure since 08/2023, likely secondary to chronic stroke Chronic multiple strokes He does not drive Assessment/Plan Monitoring Supportive treatment Telemetry Ativan for seizure breakthrough Keppra 500 mg twice daily Aspirin 81 mg daily Lipitor 20 mg daily Up to chair Physical therapy DVT prophylaxis GI prophylaxis Up to chair Physical therapy Okay to discharge from a neurologic point of view This medical document was created using an electronic medical record system with [employer] computerized dictation system. Although this document has been carefully reviewed, there may still be some phonetic and typographical errors. These areas are purely typographical due to imperfections of the software programs, and do not reflect any compromise in the patient's medical care Prognosis poor Plan discussed with: Other TYRON HUMPHRIES MD Jul 19, 2024 10:42
[2024-07-19] MEDS ORDERED: LEVE500T3 PO (17:15)
--- NOTE | 2024-07-19 18:46 | DVHDSRES ---
Discharge Summary Date of Admission Resident Creating Document: ROSITA SALAMANCA RESIDENT Jul 16, 2024 at 23:40 Date of Discharge: Jul 19, 2024 Admitting Diagnosis acute metabolic encephalopathy seizure breakthrought ruled out acute stroke Labs/Diagnostic Data: Laboratory Results Test 07/18/24 05:50 07/17/24 09:51 07/17/24 04:01 07/17/24 03:22 White Blood Count 8.3 10^3/uL (4.4-10.8) Red Blood Count 4.27 10^6/uL (4.5-5.90) Hemoglobin 14.0 g/dL (13.5-17.5) Hematocrit 41.8 % (41.0-53.0) Mean Corpuscular Volume 97.9 fL (80.0-100.0) Mean Corpuscular Hemoglobin 32.7 pg (28.0-32.0) Mean Corpuscular Hemoglobin Concent 33.5 g/dL (32.0-36.0) Red Cell Distribution Width 14.0 % (11.8-14.3) Platelet Count 260 10^3/uL (140-450) Mean Platelet Volume 8.2 fL (6.9-10.8) Neutrophils (%) (Auto) 60.3 % (37.0-80.0) Lymphocytes (%) (Auto) 29.9 % (10.0-50.0) Monocytes (%) (Auto) 8.3 % (0.0-12.0) Eosinophils (%) (Auto) 0.9 % (0.0-7.0) Basophils (%) (Auto) 0.6 % (0.0-2.0) Neutrophils # (Auto) 5.0 10 ^3/uL (1.6-8.6) Lymphocytes # (Auto) 2.5 10 ^3/uL (0.4-5.4) Monocytes # (Auto) 0.7 10 ^3/uL (0-1.3) Eosinophils # (Auto) 0.1 10 ^3/uL (0-0.8) Basophils # (Auto) 0.1 10 ^3/uL (0-0.2) Nucleated Red Blood Cells 0.0 % Sodium Level 141 mmol/L (136-145) Potassium Level 3.5 mmol/L (3.5-5.1) Chloride Level 108 mmol/L (98-107) Carbon Dioxide Level 25 mmol/L (20-31) Anion Gap 8 (5-15) Blood Urea Nitrogen 14 mg/dL (9-23) Creatinine 1.19 mg/dL (0.700-1.30) Glomerular Filtration Rate Calc 62 mL/min (>90) BUN/Creatinine Ratio 11.8 (10.0-20.0) Serum Glucose 81 mg/dL (74-106) Calcium Level 9.1 mg/dL (8.7-10.4) Total Bilirubin 0.8 mg/dL (0.2-1.0) Aspartate Amino Transferase (AST) 19 U/L (13-40) Alanine Aminotransferase (ALT) 11 U/L (7-40) Alkaline Phosphatase 74 U/L (46-116) Total Protein 6.0 g/dL (5.7-8.2) Albumin 4.0 g/dL (3.2-4.8) Lactic Acid Level 1.5 mmol/L (0.4-2.0) Creatine Kinase 228 U/L (46-171) Plasma/Serum Blood Alcohol < 3.0 mg/dL (<10) POC Glucose 89 mg/dl (70-106) Test 07/17/24 03:20 07/17/24 02:48 Blood Gas Specimen Type Arterial Blood Gas Sample Site Left radial Blood Gas Patient Temperature 37.0 Arterial Blood Date Drawn [id number] Arterial Blood pH 7.150 (7.350-7.450) Arterial Blood Partial Pressure CO2 35.7 mmHg (35.0-48.0) Arterial Blood Partial Pressure O2 87.9 mmHg (83.0-108.0) Arterial Blood HCO3 12.2 mmol/L (21.0-28.0) Arterial Blood Oxygen Saturation 93.3 % (94.0-98.0) Arterial Blood Base Excess -15.7 mmol/L (-2.0-3.0) Arterial Blood Oxyhemoglobin 91.2 % (94.0-98.0) Arterial Blood Carboxyhemoglobin 1.9 % (0.5-1.5) Arterial Blood Methemoglobin 0.3 % (0.0-1.5) Zeus Test Modified Blood Gas Total Hemoglobin 14.70 g/dL (13.5-17.5) Blood Gas Modality Room air FiO2 % 21.0 Blood Gas Critical Value Read Back Yes Blood Gas Notified Whom Darlenekellietariq Blood Gas Notified Time [id number] Blood Gas Notified By pamela Hernandez rrt Urine Color Yellow (Yellow) Urine Clarity Clear (Clear) Urine pH 7.0 (5.0-9.0) Urine Specific [place] 1.020 (1.001-1.035) Urine Protein Trace (Negative) Urine Ketones Negative (Negative) Urine Blood Negative /uL (Negative) Urine Nitrite Negative (Negative) Urine Bilirubin Negative (Negative) Urine Urobilinogen Normal mg/dL (Negative) Urine Leukocyte Esterase Negative /uL (Negative) Urine RBC 8 /hpf (0 - 3) Urine Microscopic WBC 1 /HPF (0-3) Urine Squamous Epithelial Cells None seen /hpf (<5) Urine Bacteria None seen /hpf (None Seen) Urine Mucus Few (None Seen) Urine Glucose Normal mg/dL (Normal) Urine Opiates Screen Neg (NEGATIVE) Urine Fentanyl Screen Neg (NEGATIVE) Urine Barbiturates Screen Neg (NEGATIVE) Urine Phencyclidine Screen Neg (NEGATIVE) Urine Amphetamines Screen Neg (NEGATIVE) Urine Benzodiazepines Screen Neg (NEGATIVE) Urine Cocaine Screen Neg (NEGATIVE) Urine Cannabinoids Screen Pos (NEGATIVE) Other Laboratory Tests 07/18/24 05:50 Brief Hx & Hospital Course: An 78-year-old male with a history of chronic stroke, left vertebral artery occlusion, hypertension, and dyslipidemia, presented with increasing confusion and bilateral shoulder pain. There is no evidence of acute intracranial abnormalities in MRI or CT scan. Patient had a seizure during admission which led to lactic acidosis. He remains on a medical regimen for pain management, including acetaminophen, lorazepam for acute seizures and Keppra for seizure prophylaxis. His other medications, including antihypertensive therapy, were continued.and his confusion has improved during hospitalization. Imaging revealed evidence of bilateral shoulder fractures, including chronic deformities and possible new injuries. Despite discussions about surgical options to address the fractures, the patient declined surgical intervention At discharge, the patient was advised to follow up with his primary care physician and neurologist. He was counseled on the importance of adhering to his current medical therapy and monitoring his seizure control. Recommendations include avoiding activities that could exacerbate his shoulder condition and maintaining hydration. The patient and family were provided with detailed instructions, and he was discharged in stable condition. Case discussed with Dr Perez Time spent on care 23 min Consults/Reason for consult neurology due to seizures Operations or Procedures General Appearance: Alert, drowsy, confused HEENT: Atraumatic, PERRLA, EOMI Respiratory: Normal air movement Cardiovascular: Regular rate, Normal S1, Normal S2 Abdominal: Normal bowel sounds, Soft, No tenderness Extremities: No clubbing, No edema Skin: No rashes, No significant lesion Neuro: Normal gait, Normal speech, Strength at 5/5 X4 ext, Sensation intact Psych/Mental Status: Mental status NL, Mood NL Condition at Discharge: Stable Final Diagnosis/Problems List ruled out acute stroke Acute hypoxic metabolic encephalopathy possibly from seizure activity Seizures possibly due to chronic strokes Breakthrough seizure Possible vascular dementia? Cannabinoid overuse ruled out stroke lactic acidosis SIRS without OD Bilateral shoulder pain; chronic left shoulder fracture? History of chronic multiple stroke? Discharge Disposition: Home Discharge Instruct/Medications Diet: Consistent carbohydrate, Cardiac 2g Na,low cholest Activity: Light activity Follow Up/Referral: dc clinic Medications: see prescription Discharge Statement: "Patient was advised to return to the ER or call 911 if any headaches, dizziness, shortness of breath, chest pain, abdominal pain, bleeding, fevers, or worsening of medical condition. Patient was counseled about treatment plan, medications, possible side effects, patientverbalized understanding. All questions were answered to the best of my ability. This discharge took greater then 30 minutes in planning, reviewing documentation, counseling the patient, and discussing with other team members." ASSESSMENT ASSESSMENT Assessment acute metabolic encephalopathy seizure breakthrought Date of Service: Jul 19, 2024 Billing Provider: JUSTIN PEREZ MD Common Visit Codes: 81055-VYO/OBS DISCH DAY >30min ROSITA SALAMANCA RESIDENT Jul 19, 2024 18:46 JUSTIN PEREZ MD Jul 21, 2024 16:14
--- NOTE | 2024-07-19 21:47 | DVHEEG2 ---
Neurology EEG Procedural Note Procedural Note EXAM DATE: 07/18/2024 REFERRING DOCTOR: Dr. Humphries TECHNIQUE: Eighteen channels of EEG, 2 channels of EOG, and 1 channel of EKG were recorded using the [employer] 10/20 system. CLINICAL DATA: The patient was referred for an EEG evaluation for the evidence of seizure disorder. MEDICATIONS: See the chart BACKGROUND ACTIVITY: While the patient was awake, the background activity consisted of well regulated 10 Hz rhythmic waveforms, symmetrically distributed over both posterior quadrants and was reactive to eye opening. ACTIVATION: Hyperventilation: Not done Photic Stimulation: Not done Sleep: Noticed IMPRESSION: This is a normal EEG. No focal, lateralized, or epileptiform f eatures are noted. If clinically indicated to rule out a seizure disorder, recommend repeat EEG with sleep deprivation. The EKG channel showed a regular heart rate of 48/minute. [place] [address] TYRON HUMPHRIES MD Jul 19, 2024 21:47
== END 2024-07-19 17:45 | disposition home or self-care (01) | DRG 101 ==
LOC: EDBD 17:41 → ER 17:41 → OVERFLOW 23:40 → EAST 07-17 01:51 → TELE-EAST 07-17 07:59
PROVIDERS: ADMIT Student in an Organized Health Care Education/Training Program; ATTEND Student in an Organized Health Care Education/Training Program
DX: G40.409 Other generalized epilepsy and epileptic syndromes, not intractable, without status epilepticus (principal); E87.20 Acidosis, unspecified; R65.10 Systemic inflammatory response syndrome (SIRS) of non-infectious origin without acute organ dysfunction; G93.1 Anoxic brain damage, not elsewhere classified; N39.0 Urinary tract infection, site not specified; F01.50 Vascular dementia, unspecified severity, without behavioral disturbance, psychotic disturbance, mood disturbance, and anxiety; I10 Essential (primary) hypertension; F17.210 Nicotine dependence, cigarettes, uncomplicated; E78.5 Hyperlipidemia, unspecified; I65.02 Occlusion and stenosis of left vertebral artery; Z86.73 Personal history of transient ischemic attack (TIA), and cerebral infarction without residual deficits; Z82.49 Family history of ischemic heart disease and other diseases of the circulatory system; Z79.82 Long term (current) use of aspirin; Z79.899 Other long term (current) drug therapy
CPT/HCPCS: 36415; 36600; 70450; 70551; 71045; 73030; 80048; 80053; 80307; 80320; 81001; 82550; 82805; 82962; 83605; 85025; 93005; 95819; 97110; 97116; 97163; 97530; G0378; J2470; J2543

== ENCOUNTER 2024-12-04 16:01 | Inpatient (IN) | payer OTHER, MEDICAID ==
[~2024-12-04] VITALS: Ht 170.2 cm; Wt 63.8 kg
[~2024-12-04 16:01] MED LIST changes: +LEVE500T3 PO
--- NOTE | 2024-12-04 16:16 | ED.PDOC ---
HPI (NEURO) HPI Comments pt has a history of seizures and reportedly is compliant with keppra. has had several seizures this week, but no reported changes in type of seizure. per EMT, pt was laying on bed, when witnessed generalized seizure and remains postictal longer than usual. BS is 185. pt takes aspirin, no blood thinners Chief Complaint: Seizure Time Seen by MD: 16:04 Primary Care Provider: UNKNOWN Reviewed Notes: Nurses Notes, Cuffer Notes, Medications, Allergies Information Source: Emergency Med Personnel, Past Medical Record (pt was admitted on 07/16/24 for alterd mentation with seizures, bilateral shoulder fractures, but declined surgery, admitted on 03/12/24 for seizure and altered mentation also) Mode of Arrival: EMS Severity: Moderate Timing: Minutes Seizure Quality: Grand mal Past Medical History PAST MEDICAL HISTORY: CVA, High Lipids, HTN, Seizures Past Medical History (Other): vertebral artery occlusion, toxic encephalopathy, shoulder fractures Surgical History: Pt Confused Family History Family History: Reviewed,noncontributory to illness, Unknown, Pt Confused Social History Smoker: Cigarettes, Pt Confused Alcohol: Denies ETOH Use, Pt Confused Drugs: Denies Drug Use, Pt Confused Lives In: Home, Pt Confused Unable to Obtain due to: Altered Mental Status Physical Exam General Appearance: Normal, Other (pt is mumbling incoherently, not following commands, but moves all extremities) HEENT: Normal ENT Inspection, Pharynx Normal, TMs Normal Neck: Full Range of Motion, Non-Tender, Normal, Normal Inspection Respiratory: Chest Non-Tender, Lungs Clear, No Accessory Muscle Use, No Respiratory Distress, Normal Breath Sounds Cardiovascular: No Edema, No JVD, No Murmur, No Gallop, Normal Peripheral Pulses, Regular Rate/Rhythm Breast Exam: Deferred Gastrointestinal: No Organomegaly, Non Tender, No Pulsatile Mass, Normal Bowel Sounds, Soft Genitalia: Deferred Pelvic: Deferred Rectal: Deferred Extremities: No calf tenderness, Normal capillary refill, Normal inspection, Normal range of motion, Non-tender, No pedal edema Musculoskeletal : Apperance: Normal Neurologic: Alert, handy man II-XII nml as Tested, Disoriented, No Motor Deficits, Other (confused) Cerebellar Function: Normal Reflexes: Normal Skin: Dry, Normal Color, Warm Lymphatic: No Adenopathy Was a procedure done? Was a procedure done?: No Differential Diagnosis (SZ) Seizure: Psychogenic Seizure, Alcohol Withdrawl, Anticonvulsant Withdrawl, Closed Head Injury, CVA/TIA, Drug Ingestion, Hypocalcemia, Hypoglycemia, Hyponatremia, Idiopathic, Mass Lesion, Syncope, Encephalopathy, Epilepsy-Break Through, Epilepsy-Status X-Ray, Labs, Meds, VS Vital Signs Date Time Temp Pulse Resp B/P (MAP) Pulse Ox O2 Delivery O2 Flow Rate FiO2 12/04/24 19:45 82 18 145/55 (85) 96 12/04/24 16:38 99.0 95 17 148/61 (90) 95 99.0 12/04/24 16:38 95 17 95 Room Air* 0 21 12/04/24 16:08 99.0 92 20 153/55 (87) 97 99.0 12/04/24 16:04 99 Lab Test 12/04/24 19:40 12/04/24 17:41 12/04/24 16:33 Range/Units Troponin I High Sensitivity 55 *H 35 23 </=54 ng/L White Blood Count 15.2 H 4.4-10.8 10^3/uL Red Blood Count 4.26 L 4.5-5.90 10^6/uL Hemoglobin 13.8 13.5-17.5 g/dL Hematocrit 41.0 41.0-53.0 % Mean Corpuscular Volume 96.0 80.0-100.0 fL Mean Corpuscular Hemoglobin 32.3 H 28.0-32.0 pg Mean Corpuscular Hemoglobin Concent 33.7 32.0-36.0 g/dL Red Cell Distribution Width 14.6 H 11.8-14.3 % Platelet Count 257 140-450 10^3/uL Mean Platelet Volume 8.4 6.9-10.8 fL Neutrophils (%) (Auto) 90.6 H 37.0-80.0 % Lymphocytes (%) (Auto) 5.8 L 10.0-50.0 % Monocytes (%) (Auto) 3.4 0.0-12.0 % Eosinophils (%) (Auto) 0.0 0.0-7.0 % Basophils (%) (Auto) 0.2 0.0-2.0 % Neutrophils # (Auto) 13.8 H 1.6-8.6 10 ^3/uL Lymphocytes # (Auto) 0.9 0.4-5.4 10 ^3/uL Monocytes # (Auto) 0.5 0-1.3 10 ^3/uL Eosinophils # (Auto) 0 0-0.8 10 ^3/uL Basophils # (Auto) 0 0-0.2 10 ^3/uL Nucleated Red Blood Cells 0.0 % Sodium Level 143 136-145 mmol/L Potassium Level 3.5 3.5-5.1 mmol/L Chloride Level 105 98-107 mmol/L Carbon Dioxide Level 23 20-31 mmol/L Anion Gap 15 5-15 Blood Urea Nitrogen 13 9-23 mg/dL Creatinine 1.16 0.700-1.30 mg/dL Glomerular Filtration Rate Calc 63 >90 mL/min BUN/Creatinine Ratio 11.2 10.0-20.0 Serum Glucose 163 H 74-106 mg/dL Calcium Level 9.3 8.7-10.4 mg/dL Total Bilirubin 0.5 0.2-1.0 mg/dL Aspartate Amino Transferase (AST) 26 <34 U/L Alanine Aminotransferase (ALT) 10 7-40 U/L Alkaline Phosphatase 73 46-116 U/L Total Protein 7.2 5.7-8.2 g/dL Albumin 4.6 3.2-4.8 g/dL Current Medications Medications (Trade) Dose Ordered Sig/Sarah Beth Route Start Time Stop Time Status Last Admin Lorazepam (Ativan Inj) 1 mg ONCE ONCE IV 12/04/24 16:30 12/04/24 16:31 DC 12/04/24 16:51 Lorazepam (Ativan Inj) 2 mg ONCE ONCE IV 12/04/24 18:00 12/04/24 18:01 DC 12/04/24 18:00 Lorazepam (Ativan Inj) 1 mg ONCE ONCE IV 12/04/24 19:45 12/04/24 19:46 DC 12/04/24 19:59 Haloperidol Lactate (Haldol) 10 mg ONCE ONCE IM 12/04/24 19:45 12/04/24 19:46 DC 12/04/24 19:58 Diphenhydramine HCl (Benadryl Injection) 25 mg ONCE ONCE IV 12/04/24 19:45 12/04/24 19:46 DC 12/04/24 19:59 Time of 1ST Reevaluation: 17:26 Reevaluation 1ST: Unchanged Patient Education/Counseling: Other (altered) Family Education/Counseling: No Family Present Comments pt remains confused. he has been admitted previously for the same. apparently pt remains postictal for prolonged periods, due to metabolic encephalopathy. he will need to be admitted again Departure 1 Departure Time of Disposition: 17:28 Impression: Primary Impression: Metabolic encephalopathy Additional Impressions: Post-ictal state Epilepsy Qualified Codes: G40.909 - Epilepsy, unspecified, not intractable, without status epilepticus Disposition: ADMITTED INPATIENT Admit to: Tele Condition: Serious Critical Care Note Critical Care Time?: Yes (55 min-critical care time only) Critical care comment: Due to concerns for patients condition deteriorating, the care required my highest level of attention and readiness to intervene. I assessed the patient, reviewed the medical records, ordered the appropriate tests and treatments, then reassessed for results and responsiveness. I communicated with medical personnel and consultants and formulated a plan of care. Total critical care time excludes any procedures Stability Stability form required: No MALLIKA PASTOR MD Dec 04, 2024 16:16 ARLETTE GARZA MD Dec 04, 2024 21:29
--- NOTE | 2024-12-04 16:35 | ECG ---
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
[2024-12-04 16:38] VITALS: PULSE 95; RESP 17; O2SAT 95
[2024-12-04 16:44] LABS: Basophils # (auto) 0 10 ^3/uL (0-0.2); Basophils % (auto) 0.2 % (0.0-2.0); Eosinophils # (auto) 0 10 ^3/uL (0-0.8); Hemoglobin 13.8 g/dL (13.5-17.5); Lymphocytes # (auto) 0.9 10 ^3/uL (0.4-5.4); Lymphocytes % (auto) 5.8 % (10.0-50.0); Mean Corpuscular Hemoglobin 32.3 pg (28.0-32.0); Mean Corpuscular Hgb Conc. 33.7 g/dL (32.0-36.0); Monocytes # (auto) 0.5 10 ^3/uL (0-1.3); Monocytes % (auto) 3.4 % (0.0-12.0); Neutrophils # (auto) 13.8 10 ^3/uL (1.6-8.6); Neutrophils % (auto) 90.6 % (37.0-80.0); Platelet Count (auto) 257 10^3/uL (140-450); Red Blood Cells 4.26 10^6/uL (4.5-5.90); Red Cell Distribution Width 14.6 % (11.8-14.3); White Blood Cell 15.2 10^3/uL (4.4-10.8)
[2024-12-04] MEDS: LORazepam 2MG/ML-1ML VIAL IV ONE ×3 (16:51→19:59)
[2024-12-04 16:59] LABS: Albumin 4.6 g/dL (3.2-4.8); Alkaline Phosphatase 73 U/L (46-116); Anion Gap 15 (5-15); Aspartate Aminotransferase 26 U/L (<34); BUN/Creatinine Ratio 11.2 (10.0-20.0); Blood Urea Nitrogen 13 mg/dL (9-23); Calcium 9.3 mg/dL (8.7-10.4); Carbon Dioxide 23 mmol/L (20-31); Chloride 105 mmol/L (98-107); Glucose 163 mg/dL (74-106); Potassium 3.5 mmol/L (3.5-5.1); Sodium 143 mmol/L (136-145); Total Protein 7.2 g/dL (5.7-8.2)
[2024-12-04 17:00] LABS: Bilirubin, Total 0.5 mg/dL (0.2-1.0)
[2024-12-04 17:19] LABS: Alanine Aminotransferase 10 U/L (7-40)
[2024-12-04] MEDS: HALOPERIDOL LACTATE 5 MG/ML INJ VIAL IM ONE (19:58)
[2024-12-04] MEDS: diphenhdrAMINE HCL 50 MG/1 ML VL IV ONE (19:59)
[2024-12-04] MEDS: diphenhdrAMINE HCL 50 MG/1 ML VL ONE (20:00)
--- NOTE | 2024-12-04 20:52 | DVH ---
CHEST RADIOGRAPH Indication: altered Technique: Single frontal view of the chest was obtained Comparison: XY CHEST PORTABLE on DOS: 07/17/24, XY CHEST PORTABLE on DOS: 07/17/24, XY CHEST PORTABLE o n DOS: 03/12/24 FINDINGS: Lines and Tubes: None Lungs: No focal consolidation. Pleura: No effusion. No pneumothorax. Cardiomediastinal contours: Unremarkable Bones: No acute osseous abnormality. IMPRESSION: 1. No acute cardiopulmonary disease.
--- NOTE | 2024-12-04 21:00 | DVH ---
EXAM: CT HEAD WITHOUT CONTRAST INDICATION: altered TECHNIQUE: CT of the head without intravenous contrast. Radiation Dose Information: CT Dose: CTDI volume is 56.11 mGy. Dose-length product is 1217.94 mGy*cm The dose indicators for CT are the volume Computed Tomography (CT) Dose Index (CTDIvol) and the Dose Length Product (DLP), and are measured in units of mGy and mGy-cm, respectively. These indicators are not patient dose, but values generated from the CT scanner acquisition factors. The report includes radiation exposure data for exposures received during this examination. COMPARISON: CT HEAD WITHOUT CONTRAST on DOS: 07/17/24, CT HEAD WITHOUT CONTRAST on DOS: 07/16/24, CT HE AD WITHOUT CONTRAST on DOS: 03/12/24 FINDINGS: There is no evidence of acute intracranial hemorrhage, extra-axial collection, mass effect, midline s hift, herniation or hydrocephalus. The ventricles, sulci and cisterns are age appropriate. The garcia-white differentiation is intact. Patchy periventricular and subcortical white matter hypoattenuation is nonspecific but may be related to small vessel ischemic disease. Multiple old lacunar infarcts. Small lacunar infarcts are noted in the right and left thalamus. Also noted in the right occipital lobe. These appear unchanged from CT 07/18/2024 and MRI head done same d ay The visualized paranasal sinuses and mastoid air cells are clear. The surrounding soft tissues and osseous structures are unremarkable. IMPRESSION: 1. No acute intracranial hemorrhage 2. Stable small lacunar infarcts in the thalami bilaterally and right occipital lobe.
[2024-12-04] MEDS ORDERED: ONDANSETRON HCL 4 MG/2 ML VIAL IV PRN (21:45)
[2024-12-04] MEDS ORDERED: LORazepam 2MG/ML-1ML VIAL IV PRN (21:45)
[2024-12-04] MEDS: cefTRIAXone 1GM/50ML D5W 50 ML IV ONE (21:45)
[2024-12-04] MEDS: POTASSIUM CHL 20 Meq TABLET PO ONE (21:45)
[2024-12-04] MEDS ORDERED: HYDROcodone-ACET 5/325MG TAB PO PRN (21:45)
[2024-12-04] MEDS: levETIRAcetam 500 mg/100ml 100 ML IV SCH (22:00)
[2024-12-04] MEDS: ATORVASTATIN 20 MG TAB PO SCH (22:00)
[2024-12-04] MEDS: SODIUM CHLOR 0.9% PF (SALINE LOCK) 10ML VIAL/SYR IV SCH (22:00)
[2024-12-04] MEDS: METOPROLOL TARTRATE 25 MG TAB PO SCH (22:00)
[2024-12-04] MEDS ORDERED: ACETAMINOPHEN 500 MG TAB or CAP PO PRN (22:00)
--- NOTE | 2024-12-04 22:20 | DVHHP2 ---
History of Present Illness Reason for Visit: Seizure disorder History of Present Illness The patient is a 79-year-old male with past medical history of CVA, hyperlipidemia, seizures, and hypertension who presented to [facility] ED for evaluation of seizures activity. As reported by patient had witnessed generalized seizure, remains postictal longer than usual, so EMS were called. Patient was seen and evaluated in the ED, laboratory data shows WBC 15.2, platelets 257, sodium 143, potassium 5.3, BUN 13, creatinine 1.16, glucose 163, hemoglobin A1c 5.3, calcium 9.3, troponin 55, blood pressure 145/55, heart rate 82, temperature 99.0 F, O2 saturation 96% on room. Patient was started on IV Keppra, please see medication orders section in the computer. On my assessment, patient remains altered, no diaphoresis, no shortness of breath, no nausea, no vomiting, no fever, no chills. Patient was admitted for further evaluation and medical management. Past Medical History CVA, High Lipids, HTN, Seizures Vertebral artery occlusion, Toxic encephalopathy, Shoulder fractures Past Surgical History Unknown Family History Reviewed, noncontributory to the management of this case. Past Social History The patient lives at home, denies smoking, alcohol or illicit drugs abuse. Review of Systems Constitutional: Yes: Weakness; No: Fever, Chills, Sweats, Malaise, Other Eyes: No: Pain, Vision change, Conjunctivae inflammation, Eyelid inflammation, Other, Redness ENT: No: Ear pain, Ear discharge, Nose pain, Nose discharge, Nose congestion, Mouth pain, Mouth swelling, Throat pain, Throat swelling, Other Respiratory: No: Cough, Dry, Shortness of breath, SOB with excertion, Wheezing, Hemoptysis, Pleuritic Pain, Sputum, Wheezing, Other Cardiovascular: No: Chest Pain, Palpitations, Orthopnea, Paroxysmal Noc. Dyspnea, Edema, Lt Headedness, Other Gastrointestinal: No: Nausea, Vomiting, Abdominal Pain, Diarrhea, Constipation, Melena, Hematochezia, Other Genitourinary: No Dysuria, No Frequency, No Incontinence, No Hematuria, No Retention, No Other Musculoskeletal: No: other, neck pain, shoulder pain, arm pain, back pain, hand pain, leg pain, foot pain Skin: No: Rash, Lesions, Jaundice, Bruising, Other Neurological: Confusion, Seizures; No: Weakness, Numbness, Incoordination, Change in speech, Other Allergies: Coded Allergies: NO KNOWN ALLERGIES (Unverified , 04/09/24) Medications Current Medications Medications Dose Ordered Sig/Sarah Beth Route Start Time Stop Time Status Last Admin Dose Admin Lorazepam 1 mg Q2HP PRN IV 12/04/24 21:45 Levetiracetam 100 ml @ 400 mls/hr BID IV 12/04/24 22:00 Atorvastatin Calcium 20 mg HS PO 12/04/24 22:00 Amlodipine Besylate 10 mg DAILY PO 12/05/24 10:00 Metoprolol Tartrate 25 mg BID PO 12/04/24 22:00 Ceftriaxone Sodium 50 ml @ 100 mls/hr DAILY@09 IV 12/05/24 09:00 Sodium Chloride 10 ml Q8HR IV 12/04/24 22:00 Acetaminophen/ Hydrocodone Bitart 1 tab Q4HP PRN PO 12/04/24 21:45 Ondansetron HCl 4 mg Q4HP PRN IV 12/04/24 21:45 Docusate Sodium 100 mg BIDPRN PRN PO 12/04/24 21:45 Acetaminophen 500 mg Q6HP PRN PO 12/04/24 22:00 Exam Vital Signs Vital Signs Date Time Temp Pulse Resp B/P (MAP) Pulse Ox O2 Delivery O2 Flow Rate FiO2 12/04/24 19:45 82 18 145/55 (85) 96 12/04/24 16:38 99.0 99.0 12/04/24 16:38 Room Air* 0 21 General Appearance: Alert, Cooperative, No acute distress, Other (Oriented x2) HEENT: Atraumatic, PERRLA, EOMI, Mucous membr. moist/pink Respiratory: Clear to auscultation, Normal air movement Cardiovascular: Regular rate, Normal S1, Normal S2, No murmurs Abdominal: Normal bowel sounds, Soft, No tenderness, No hepatospenomegaly, No masses Extremities: No clubbing, No cyanosis, No edema, Normal pulses, No tenderness/swelling Skin: No rashes, No breakdown, No significant lesion Neuro: Normal speech, Normal tone, Sensation intact, Cranial nerves 3-12 NL, Reflexes 2+, Other (Generalized weakness) Psych/Mental Status: Mood NL, Other (Altered mental status) Labs/Xrays Labs Test 12/04/24 19:40 12/04/24 16:33 Range/Units Troponin I High Sensitivity 55 *H </=54 ng/L White Blood Count 15.2 H 4.4-10.8 10^3/uL Red Blood Count 4.26 L 4.5-5.90 10^6/uL Hemoglobin 13.8 13.5-17.5 g/dL Hematocrit 41.0 41.0-53.0 % Mean Corpuscular Volume 96.0 80.0-100.0 fL Mean Corpuscular Hemoglobin 32.3 H 28.0-32.0 pg Mean Corpuscular Hemoglobin Concent 33.7 32.0-36.0 g/dL Red Cell Distribution Width 14.6 H 11.8-14.3 % Platelet Count 257 140-450 10^3/uL Mean Platelet Volume 8.4 6.9-10.8 fL Neutrophils (%) (Auto) 90.6 H 37.0-80.0 % Lymphocytes (%) (Auto) 5.8 L 10.0-50.0 % Monocytes (%) (Auto) 3.4 0.0-12.0 % Eosinophils (%) (Auto) 0.0 0.0-7.0 % Basophils (%) (Auto) 0.2 0.0-2.0 % Neutrophils # (Auto) 13.8 H 1.6-8.6 10 ^3/uL Lymphocytes # (Auto) 0.9 0.4-5.4 10 ^3/uL Monocytes # (Auto) 0.5 0-1.3 10 ^3/uL Eosinophils # (Auto) 0 0-0.8 10 ^3/uL Basophils # (Auto) 0 0-0.2 10 ^3/uL Nucleated Red Blood Cells 0.0 % Sodium Level 143 136-145 mmol/L Potassium Level 3.5 3.5-5.1 mmol/L Chloride Level 105 98-107 mmol/L Carbon Dioxide Level 23 20-31 mmol/L Anion Gap 15 5-15 Blood Urea Nitrogen 13 9-23 mg/dL Creatinine 1.16 0.700-1.30 mg/dL Glomerular Filtration Rate Calc 63 >90 mL/min BUN/Creatinine Ratio 11.2 10.0-20.0 Serum Glucose 163 H 74-106 mg/dL Hemoglobin A1c 5.3 <5.7 % A1C Calcium Level 9.3 8.7-10.4 mg/dL Total Bilirubin 0.5 0.2-1.0 mg/dL Aspartate Amino Transferase (AST) 26 <34 U/L Alanine Aminotransferase (ALT) 10 7-40 U/L Alkaline Phosphatase 73 46-116 U/L Total Protein 7.2 5.7-8.2 g/dL Albumin 4.6 3.2-4.8 g/dL PATIENT: DAWSON BERG ACCT: [id number] UNIT: [id number] : 1945 LOC: ER ROOM / BED: / AGE / SEX: 79 / M ADM STATUS: REG ER SERVICE 1616 ORDERING PHYSICIAN: MALLIKA PASTOR MD PROCEDURE(s): HWOCT - HEAD WITHOUT CONTRAST REASON: altered ORDER NUMBER(s): [id number], ACCESSION NUMBER(s): [id number] EXAM: CT HEAD WITHOUT CONTRAST INDICATION: altered TECHNIQUE: CT of the head without intravenous contrast. Radiation Dose Information: CT Dose: CTDI volume is 56.11 mGy. Dose-length product is 1217.94 mGy*cm The dose indicators for CT are the volume Computed Tomography (CT) Dose Index (CTDIvol) and the Dose Length Product (DLP), and are measured in units of mGy and mGy-cm, respectively. These indicators are not patient dose, but values generated from the CT scanner acquisition factors. The report includes radiation exposure data for exposures received during this examination. COMPARISON: CT HEAD WITHOUT CONTRAST on DOS: 07/17/24, CT HEAD WITHOUT CONTRAST on DOS: 07/16/24, CT HEAD WITHOUT CONTRAST on DOS: 03/12/24 FINDINGS: There is no evidence of acute intracranial hemorrhage, extra-axial collection, mass effect, midline shift, herniation or hydrocephalus. The ventricles, sulci and cisterns are age appropriate. The garcia-white differentiation is intact. Patchy periventricular and subcortical white matter hypoattenuation is nonspecific but may be related to small vessel ischemic disease. Multiple old lacunar infarcts. Small lacunar infarcts are noted in the right and left thalamus. Also noted in the right occipital lobe. These appear unchanged from CT 07/18/2024 and MRI head done same day The visualized paranasal sinuses and mastoid air cells are clear. The surrounding soft tissues and osseous structures are unremarkable. IMPRESSION: 1. No acute intracranial hemorrhage 2. Stable small lacunar infarcts in the thalami bilaterally and right occipital lobe. ORDERING PHYSICIAN: MALLIKA PASTOR MD PROCEDURE(s): CXRP - CHEST PORTABLE REASON: altered ORDER NUMBER(s): [id number], ACCESSION NUMBER(s): [id number] CHEST RADIOGRAPH Indication: altered Technique: Single frontal view of the chest was obtained Comparison: XY CHEST PORTABLE on DOS: 07/17/24, XY CHEST PORTABLE on DOS: 07/17/24, XY CHEST PORTABLE on DOS: 03/12/24 FINDINGS: Lines and Tubes: None Lungs: No focal consolidation. Pleura: No effusion. No pneumothorax. Cardiomediastinal contours: Unremarkable Bones: No acute osseous abnormality. IMPRESSION: 1. No acute cardiopulmonary disease. Assessment/Plan Assessment/Plan Metabolic encephalopathy Epilepsy Elevated troponin Leukocytosis, unspecified Post-ictal state Altered mental status Epilepsy, unspecified, not intractable, without status epilepticus Plan 1. Admit to telemetry unit 2. Breathing treatment 3. Pain control management 4. IV antibiotic management 5. Management of fluids and electrolytes 6. Consultation for neurology 7. Diagnostic test head CT 8. DVT prophylaxis-on SCDs 9. Repeat labs CBC, CMP in a.m. 10. Home medication reviewed and reconciled 11. Continue with current medical management 12. Treatment plan discussed with patient and RN. Patient we will need reinfor cement information given mental status. Plan discussed with: Patient, Other (RN) My Orders Orders - CARMEN BUSTAMANTE DNP Procedure Category Date Status Time Lorazepam 2mg/Ml Inj PHA 12/04/24 In Process (Ativan Inj) 21:45 Levetiracetam 500 PHA 12/04/24 In Process Mg/100ml (Levetiraceta 22:00 Levetiracetam (Keppra) LAB 12/04/24 Logged 21:38 Atorvastatin (Lipitor) PHA 12/04/24 In Process 22:00 Amlodipine Tablet PHA 12/05/24 In Process (Norvasc Tablet) 10:00 Metoprolol Tartrate PHA 12/04/24 In Process Tablet (Lopressor Ta 22:00 Blood Culture LIBORIO 12/04/24 Logged 21:38 * Neurology Consult CONS 12/04/24 Transmitted 21:38 Ceftriaxone 1gm/50ml PHA 12/05/24 In Process D5w (Rocephin) 09:00 Allergies NEHAL 12/04/24 In Process 21:38 Code Status CODE 12/04/24 Transmitted 21:38 Sodium Chloride Lock PHA 12/04/24 In Process (Saline Lock Ns) 22:00 Oxygen Per Hour RT 12/04/24 Transmitted 21:38 Hydrocodone-Acet PHA 12/04/24 In Process 5/325mg Tab (Lyons 21:45 Ondansetron Hcl PHA 12/04/24 In Process (Zofran) 21:45 Docusate Sodium PHA 12/04/24 In Process Capsule (Colace 21:45 Fall Risk Precautions NEHAL 12/04/[address] 21:38 Complete Blood Count LAB 12/05/24 Verified 04:00 Comprehensive LAB 12/05/24 Verified Metabolic Panel 04:00 Cardiac DIET 12/05/24 Transmitted Diet-2gna,Lofat,Lochol Breakfast Condition: Serious NEHAL 12/04/24 In Process 21:38 Maintain Bed Rest NEHAL 12/04/24 In Process 21:38 Sequential NEHAL 12/04/24 In Process Compression Device Acetaminophen Tab Or PHA 12/04/24 In Process Cap (Tylenol Tablet 22:00 Admit ADMIT 12/04/24 Verified 22:19 Nitroglycerin PHA 12/04/24 Verified Sublingual (Ntrostat 22:30 Morphine Sulfate PHA 12/04/24 Verified Injection 22:30 Stat Ekg For Chest NEHAL 12/04/24 Verified Pain 22:19 Notify Md Of Changes NEHAL 12/04/24 Verified From Base 22:19 Wheel Truer For NEHAL 12/04/24 Verified 24 Hours 22:19 Emergency Dysrhythmia NEHAL 12/04/24 Verified Protocol 22:19 Rhythm Strips Once NEHAL 12/04/24 Verified Every Shift 22:19 Oxygen By Nasal RT 12/04/24 Verified Cannula 22:19 Problem List: (1) Metabolic encephalopathy (2) Epilepsy (3) Elevated troponin (4) Leukocytosis, unspecified (5) Post-ictal state (6) Altered mental status (7) Epilepsy, unspecified, not intractable, without status epilepticus Date of Service: Dec 04, 2024 Billing Provider: CARMEN BUSTAMANTE DNP Common Visit Codes: [id number] INP/OBS CARE (HIGH) CARMEN BUSTAMANTE DNP Dec 04, 2024 22:20
[2024-12-04] MEDS ORDERED: MORPHINE SULFATE INJ 2 MG/ml SYRG IV PRN (22:30)
[2024-12-04] MEDS ORDERED: NITROGLYCERIN 0.4 MG SL TAB SL PRN (22:30)
[2024-12-05] VITALS (9 sets, daily range): BP systolic 112–144; BP diastolic 40–56; PULSE 47–92; RESP 12–20; TEMP 97.5–98.3; O2SAT 93–99
[2024-12-05] MEDS: GABAPENTIN 300 MG CAP PO ONE (01:25)
[2024-12-05] MEDS: ACETAMINOPHEN 325 MG TAB PO ONE (01:25)
[2024-12-05 04:39] LABS: Basophils # (auto) 0.2 10 ^3/uL (0-0.2); Basophils % (auto) 1.2 % (0.0-2.0); Eosinophils # (auto) 0 10 ^3/uL (0-0.8); Eosinophils % (auto) 0.2 % (0.0-7.0); Hemoglobin 13.9 g/dL (13.5-17.5); Lymphocytes # (auto) 3.2 10 ^3/uL (0.4-5.4); Lymphocytes % (auto) 22.3 % (10.0-50.0); Mean Corpuscular Hemoglobin 32.4 pg (28.0-32.0); Mean Corpuscular Hgb Conc. 33.9 g/dL (32.0-36.0); Mean Corpuscular Volume 95.5 fL (80.0-100.0); Monocytes # (auto) 1.4 10 ^3/uL (0-1.3); Monocytes % (auto) 10.1 % (0.0-12.0); Neutrophils # (auto) 9.4 10 ^3/uL (1.6-8.6); Neutrophils % (auto) 66.2 % (37.0-80.0); Platelet Count (auto) 231 10^3/uL (140-450); Red Cell Distribution Width 14.4 % (11.8-14.3); White Blood Cell 14.2 10^3/uL (4.4-10.8)
[2024-12-05 04:56] LABS: Alanine Aminotransferase 12 U/L (7-40); Albumin 4.1 g/dL (3.2-4.8); Alkaline Phosphatase 61 U/L (46-116); Anion Gap 11 (5-15); BUN/Creatinine Ratio 11.5 (10.0-20.0); Blood Urea Nitrogen 12 mg/dL (9-23); Calcium 9.8 mg/dL (8.7-10.4); Carbon Dioxide 22 mmol/L (20-31); Glucose 78 mg/dL (74-106); Sodium 142 mmol/L (136-145); Total Protein 6.6 g/dL (5.7-8.2)
[2024-12-05 04:57] LABS: Aspartate Aminotransferase 44 U/L (<34); Bilirubin, Total 0.6 mg/dL (0.2-1.0); Chloride 109 mmol/L (98-107); Potassium 3.4 mmol/L (3.5-5.1)
[2024-12-05] MEDS: cefTRIAXone 1GM/50ML D5W 50 ML IV SCH (09:42)
[2024-12-05] MEDS: amLODIPine BESYLATE 5 MG TAB PO SCH (10:00)
[2024-12-05] MEDS: ASPirin 81 mg TAB PO SCH (10:40)
--- NOTE | 2024-12-05 13:47 | DVHPN2 ---
Reviewed: Care Plan, H&P, Labs, Medications, Previous Orders, Radiology Changes from previous H/P or p: No Changes Eyes: No Pain, No Vision change, No Conjunctivae inflammation, No Eyelid inflammation, No Other, No Redness ENT: No Ear pain, No Ear discharge, No Nose pain, No Nose discharge, No Nose congestion, No Mouth pain, No Mouth swelling, No Throat pain, No Throat swelling, No Other Cardiovascular: No Chest Pain, No Palpitations, No Orthopnea, No Paroxysmal Noc. Dyspnea, No Edema, No Lt Headedness, No Other Respiratory: No Cough, No Dry, No Shortness of breath, No SOB with excertion, No Wheezing, No Hemoptysis, No Pleuritic Pain, No Sputum, No Other Gastrointestinal: No Nausea, No Vomiting, No Abdominal Pain, No Diarrhea, No Constipation, No Melena, No Hematochezia, No Other Genitourinary: No Dysuria, No Frequency, No Incontinence, No Hematuria, No Retention, No Other Musculoskeletal: No other, No neck pain, No shoulder pain, No arm pain, No back pain, No hand pain, No leg pain, No foot pain Skin: No Rash, No Lesions, No Jaundice, No Bruising, No Other Objective Vitals Vital Signs Date Time Temp Pulse Resp B/P (MAP) Pulse Ox O2 Delivery O2 Flow Rate FiO2 12/05/24 10:45 59 15 106/43 (64) 94 12/05/24 08:00 Room Air* 0 21 12/05/24 08:00 97.8 97.8 Medications Current Medications Medications Dose Ordered Sig/Sarah Beth Route Start Time Stop Time Status Last Admin Dose Admin Lorazepam 1 mg Q2HP PRN IV 12/04/24 21:45 Levetiracetam 100 ml @ 400 mls/hr BID IV 12/04/24 22:00 12/05/24 10:40 400 MLS/HR Atorvastatin Calcium 20 mg HS PO 12/04/24 22:00 Amlodipine Besylate 10 mg DAILY PO 12/05/24 10:00 Metoprolol Tartrate 25 mg BID PO 12/04/24 22:00 Ceftriaxone Sodium 50 ml @ 100 mls/hr DAILY@09 IV 12/05/24 09:00 12/05/24 09:42 100 MLS/HR Sodium Chloride 10 ml Q8HR IV 12/04/24 22:00 12/05/24 05:14 10 ML Acetaminophen/ Hydrocodone Bitart 1 tab Q4HP PRN PO 12/04/24 21:45 Ondansetron HCl 4 mg Q4HP PRN IV 12/04/24 21:45 Docusate Sodium 100 mg BIDPRN PRN PO 12/04/24 21:45 Acetaminophen 500 mg Q6HP PRN PO 12/04/24 22:00 Nitroglycerin 0.4 mg Q5MINP PRN SL 12/04/24 22:30 Morphine Sulfate 2 mg Q30M PRN IV 12/04/24 22:30 Aspirin 81 mg DAILY PO 12/05/24 10:00 12/05/24 10:40 81 MG Laboratory Results Laboratory Tests 12/05/24 04:18 Chemistry Test 12/04/24 16:33 12/05/24 04:18 Albumin 4.6 g/dL (3.2-4.8) 4.1 g/dL (3.2-4.8) Calcium Level 9.3 mg/dL (8.7-10.4) 9.8 mg/dL (8.7-10.4) Total Protein 7.2 g/dL (5.7-8.2) 6.6 g/dL (5.7-8.2) LFT Test 12/04/24 16:33 12/05/24 04:18 Alanine Aminotransferase (ALT) 10 U/L (7-40) 12 U/L (7-40) Alkaline Phosphatase 73 U/L (46-116) 61 U/L (46-116) Aspartate Amino Transferase (AST) 26 U/L (<34) 44 U/L (<34) H Total Bilirubin 0.5 mg/dL (0.2-1.0) 0.6 mg/dL (0.2-1.0) HgA1c, TSH Test 12/04/24 16:33 Hemoglobin A1c 5.3 % A1C (<5.7) Labs and/or images reviewed: Labs reviewed by me, Image(s) reviewed by me Assessment/Plan Assessment/Plan Acute Metabolic encephalopathy Epilepsy: Mita, consult for Dr. Giles Elevated troponin Leukocytosis, unspecified Post-ictal state Altered mental status Epilepsy, unspecified, not intractable, without status epilepticus Time spent 50 minutes Plan discussed with: Patient Date of Service: Dec 05, 2024 Billing Provider: JAVY MAX MD Common Visit Codes: [id number] INP/OBS CARE(HIGH) JAVY MAX MD Dec 05, 2024 13:47
[2024-12-06] VITALS (8 sets, daily range): BP systolic 95–136; BP diastolic 40–80; PULSE 56–77; RESP 16–18; TEMP 97–99.2; O2SAT 95–99
--- NOTE | 2024-12-06 09:54 | DVHPN2 ---
Reviewed: Care Plan, H&P, Labs, Medications, Previous Orders, Radiology Changes from previous H/P or p: No Changes Eyes: No Pain, No Vision change, No Conjunctivae inflammation, No Eyelid inflammation, No Other, No Redness ENT: No Ear pain, No Ear discharge, No Nose pain, No Nose discharge, No Nose congestion, No Mouth pain, No Mouth swelling, No Throat pain, No Throat swelling, No Other Cardiovascular: No Chest Pain, No Palpitations, No Orthopnea, No Paroxysmal Noc. Dyspnea, No Edema, No Lt Headedness, No Other Respiratory: No Cough, No Dry, No Shortness of breath, No SOB with excertion, No Wheezing, No Hemoptysis, No Pleuritic Pain, No Sputum, No Other Gastrointestinal: No Nausea, No Vomiting, No Abdominal Pain, No Diarrhea, No Constipation, No Melena, No Hematochezia, No Other Genitourinary: No Dysuria, No Frequency, No Incontinence, No Hematuria, No Retention, No Other Musculoskeletal: No other, No neck pain, No shoulder pain, No arm pain, No back pain, No hand pain, No leg pain, No foot pain Skin: No Rash, No Lesions, No Jaundice, No Bruising, No Other Objective Vitals Vital Signs Date Time Temp Pulse Resp B/P (MAP) Pulse Ox O2 Delivery O2 Flow Rate FiO2 12/06/24 05:00 97.0 72 17 95/50 (65) 95 97.0 12/05/24 20:00 Room Air* 0 21 Intake/Output Intake and Output 12/06/24 07:00 Intake Total 200 ml Output Total 0 ml Balance 200 ml Intake Oral 50 ml IV Total 150 ml Output Urine Total 0 ml Stool Total 0 ml # Voids 2 Medications Current Medications Medications Dose Ordered Sig/Sarah Beth Route Start Time Stop Time Status Last Admin Dose Admin Lorazepam 1 mg Q2HP PRN IV 12/04/24 21:45 Levetiracetam 100 ml @ 400 mls/hr BID IV 12/04/24 22:00 12/05/24 10:40 400 MLS/HR Atorvastatin Calcium 20 mg HS PO 12/04/24 22:00 Amlodipine Besylate 10 mg DAILY PO 12/05/24 10:00 Metoprolol Tartrate 25 mg BID PO 12/04/24 22:00 Ceftriaxone Sodium 50 ml @ 100 mls/hr DAILY@09 IV 12/05/24 09:00 12/06/24 09:13 100 MLS/HR Sodium Chloride 10 ml Q8HR IV 12/04/24 22:00 12/05/24 21:56 10 ML Acetaminophen/ Hydrocodone Bitart 1 tab Q4HP PRN PO 12/04/24 21:45 Ondansetron HCl 4 mg Q4HP PRN IV 12/04/24 21:45 Docusate Sodium 100 mg BIDPRN PRN PO 12/04/24 21:45 Acetaminophen 500 mg Q6HP PRN PO 12/04/24 22:00 Nitroglycerin 0.4 mg Q5MINP PRN SL 12/04/24 22:30 Morphine Sulfate 2 mg Q30M PRN IV 12/04/24 22:30 Aspirin 81 mg DAILY PO 12/05/24 10:00 12/06/24 09:13 81 MG Laboratory Results Laboratory Tests 12/05/24 04:18 Microbiology Microbiology Date/Time Source Procedure Growth Status 12/04/24 22:14 Blood Blood Culture - Preliminary NO GROWTH AFTER 24 HOURS OF INCUBATION. Resulted Labs and/or images reviewed: Labs reviewed by me, Image(s) reviewed by me Assessment/Plan Assessment/Plan Acute Metabolic encephalopathy Epilepsy: Mita, consult for Dr. Giles Elevated troponin Leukocytosis, unspecified Post-ictal state Altered mental status Epilepsy, unspecified, not intractable, without status epilepticus Time spent 50 minutes Plan discussed with: Patient Date of Service: Dec 06, 2024 Billing Provider: JAVY MAX MD Common Visit Codes: [id number] INP/OBS CARE(HIGH) JAVY MAX MD Dec 06, 2024 09:54
[2024-12-06] MEDS: DOCUSATE SOD 100 MG CAP PO PRN (20:54)
--- NOTE | 2024-12-06 23:18 | DVHINCON2 ---
Date of service: Dec 06, 2024 Referring Physician Darlene Reason for Consultation Seizure disorder History of Present Illness Mr. Corley is a right-handed gentleman who denies major medical background, he was discharged from the [facility] on 12/04/2024 with a chief complaint of seizure activity. At this time, he is alert, oriented to person, place, he knows year and the month, but he is not a good historian. The information is obtained from his sister, I have reviewed the chart and talked to his nurse I saw him on 08/22/2023 for new onset seizure , 12/04/2024 for ALOC, possible seizures Since 08/2023, the patient has had episodic event where he became nonresponsive, shaking all over the body, followed by confusion, I saw him in my office, and he is Keppra 500 mg b.i.d. with good results, but he still have seizure once a while, his sister suspected poor compliance on him He is asymptomatic, but MRIs brain scan on 08/22/2023 shows evidence of multiple strokes, he is unremarkable KIP, his CTA neck shows evidence of left vertebral artery occlusion. He is on aspirin 81 mg daily, Lipitor 20 mg daily His sister reported progressive memory problems him this no family history of dementia or Alzheimer disease All his life, he has been a hadley person, which has no changes after Keppra ariel tment He has long history of insomnia, he was on Remeron 50 mg at bedtime WBC/HB/PLT/MCV, 12/05/2024: 14.2/13.9/231/95.5 CMP, 03/12/2024: Unremarkable, 12/05/2024: Unremarkable HGB A1c, 12/04/2024: 503 TG/CHO L/LDL/HDL, 08/22/2023: 95/129/71/45 Vitamin B12, 09/17/2024: 326 Folic acid, 09/17/2024: 9.33 TSH, 07/2023: 1.81 EEG, 08/26/23: Normal KPI, 08/25/2023: -No evidence of cardiac source of embolus was detected in the KIP study that was conducted today. -Testing for other causes of stroke including arrhythmia is warranted with event recorder for minimum of 2 weeks Carotid Doppler, 03/12/2024: 1. No hemodynamically significant stenosis noted in the right carotid system. 2. No hemodynamically significant stenosis noted in the left carotid system CT head, 12/04/2024: 1. No acute intracranial hemorrhage 2. Stable small lacunar infarcts in the thalami bilaterally and right occipital lobe CTA, neck, 08/25/2023: There is near complete occlusion of the left vertebral art negro. The distal left vertebral artery may may be filled in a retrograde fashion by the basilar artery and right vertebral artery. Carotid is unremarkable. I don't appreciate any fractures or dislocations MRI head, 08/22/2023: No acute abnormal MRI findings of the brain. Encephalomalacia in the right occipital/medial posterior temporal lobe. Remote infarct in the bilateral thalamu MR head, 03/13/2024: No evidence of acute infarction, intracranial hemorrhage, mass effect or hydrocephalus. Right-sided mastoid effusion correlate for possible mastoiditis. Chronic infarcts as detailed above (Small chronic lacunar infarcts in the bilateral thalami. Small chronic infarcts in the right cerebellu Past Medical History Hypertension, dyslipidemia, showed fracture, left vertebral artery stenosis (CTA neck, 09/04/2023) Past Surgical History None Family History: FH: heart attack G8 MOTHER G8 FATHER Family History Heart attack Social History Smoker: Cigarettes, Pt Confused Alcohol: Denies ETOH Use, Pt Confused Drugs: Denies Drug Use, Pt Confused Lives In: Home, Pt Confused Allergies: Coded Allergies: NO KNOWN ALLERGIES (Unverified , 04/09/24) Home Meds Active Scripts Levetiracetam (Levetiracetam) 500 Mg Tab, 500 MG PO BID for 30 Days, #60 TAB Prov:ROSITA SALAMANCA 07/19/24 Ciprofloxacin Hcl (Cipro) 500 Mg Tab, 1 TAB PO BID, #20 TAB Prov:JAVY MAX MD 03/15/24 Amlodipine Besylate (Amlodipine Besylate) 10 Mg Tab, 1 TAB PO DAILY, #30 TAB 5 Refills Prov:ELISA NIELSON MD 08/26/23 Levetiracetam (KEPPRA TABLET) 500 Mg Tb, 500 MG PO BID for 30 Days, #60 TAB Prov:ELISA NIELSON MD 08/26/23 Hydrocodone-Acetaminophen (Hydrocodone Bitartrate/AC 5-325 mg) 1 Tab Tab, 1 TAB PO Q6HPRN PRN for 7 Days, #28 TAB Prov:ELISA NIELSON MD 08/26/23 Atorvastatin Calcium (ATORVASTATIN CALCIUM) 20 Mg Tab, 20 MG PO HS for 30 Days, #30 TAB Prov:ELISA NIELSON MD 08/26/23 Review of Systems As above, the other systems are negative Vital Signs Vital Signs Date Time Temp Pulse Resp B/P (MAP) Pulse Ox O2 Delivery O2 Flow Rate FiO2 12/06/24 22:06 82 106/65 12/06/24 21:00 99.2 18 97 99.2 12/06/24 20:00 Room Air* 0 21 Physical Exam GENERAL EXAM: General: the patient is well developed and nourished. No acute distress. HEENT: Normocephalic, neck is supple, no carotid bruits. No mass. RESPIRATORY: Normal respiratory effort with symmetrical lung expansion. Lungs clear to auscultation. CARDIOVASCULAR: Regular rate and rhythm with no murmurs. S1, S2. ABDOMEN: Soft, nontender, normal bowel sound NEUROLOGICAL: MENTAL STATUS: Awake and alert. Oriented to person, place, time SPEECH, LANGUAGE, HIGHER CORTICAL FUNCTION: no aphasia or dysathria. CRANIAL NERVES: #2: Intact visual ragland to confrontation. The optic discs were sharp. #3,4,6: Pupils are equal, round and reactive. EOMs full and conjugate. #5: Facial sensation intact in all three divisions bilaterally. Mandibular strength intact. #7: Facial muscles symmetrical and strength intact. #8: Hearing grossly normal to voice. #9,10: Uvula and soft palate rise in the midline. Swallow and voice are normal. #11: Trapezius and sternomastoid strength intact bilaterally. #12: Tongue midline. No fasciculations or atrophy. SENSATION: Sensation to touch and pinprick is normal. MOTOR: Normal tone in the upper and lower extremity. Normal muscle bulk. No fasciculations. No abnormal movements or posturing. Muscle strength of the major groups in the upper extremities is 5/5. Muscle strength of the major groups in the lower extremities is 5/5. REFLEXES: Deep tendon reflexes normal and symmetrical. No pathological reflexes. CEREBELLAR/COORDINATION: Finger to nose is normal bilaterally. GAIT/STATION: deferred. Labs/Diagnostic Data Labs Test 12/05/24 04:18 12/04/24 22:14 12/04/24 19:40 12/04/24 16:33 Range/Units White Blood Count 14.2 H 4.4-10.8 10^3/uL Red Blood Count 4.30 L 4.5-5.90 10^6/uL Hemoglobin 13.9 13.5-17.5 g/dL Hematocrit 41.0 41.0-53.0 % Mean Corpuscular Volume 95.5 80.0-100.0 fL Mean Corpuscular Hemoglobin 32.4 H 28.0-32.0 pg Mean Corpuscular Hemoglobin Concent 33.9 32.0-36.0 g/dL Red Cell Distribution Width 14.4 H 11.8-14.3 % Platelet Count 231 140-450 10^3/uL Mean Platelet Volume 9.0 6.9-10.8 fL Neutrophils (%) (Auto) 66.2 37.0-80.0 % Lymphocytes (%) (Auto) 22.3 10.0-50.0 % Monocytes (%) (Auto) 10.1 0.0-12.0 % Eosinophils (%) (Auto) 0.2 0.0-7.0 % Basophils (%) (Auto) 1.2 0.0-2.0 % Neutrophils # (Auto) 9.4 H 1.6-8.6 10 ^3/uL Lymphocytes # (Auto) 3.2 0.4-5.4 10 ^3/uL Monocytes # (Auto) 1.4 H 0-1.3 10 ^3/uL Eosinophils # (Auto) 0 0-0.8 10 ^3/uL Basophils # (Auto) 0.2 0-0.2 10 ^3/uL Nucleated Red Blood Cells 0.0 % Sodium Level 142 136-145 mmol/L Potassium Level 3.4 L 3.5-5.1 mmol/L Chloride Level 109 H 98-107 mmol/L Carbon Dioxide Level 22 20-31 mmol/L Anion Gap 11 5-15 Blood Urea Nitrogen 12 9-23 mg/dL Creatinine 1.04 0.700-1.30 mg/dL Glomerular Filtration Rate Calc 72 >90 mL/min BUN/Creatinine Ratio 11.5 10.0-20.0 Serum Glucose 78 74-106 mg/dL Calcium Level 9.8 8.7-10.4 mg/dL Total Bilirubin 0.6 0.2-1.0 mg/dL Aspartate Amino Transferase (AST) 44 H <34 U/L Alanine Aminotransferase (ALT) 12 7-40 U/L Alkaline Phosphatase 61 46-116 U/L Total Protein 6.6 5.7-8.2 g/dL Albumin 4.1 3.2-4.8 g/dL Troponin I High Sensitivity 55 *H </=54 ng/L Hemoglobin A1c 5.3 <5.7 % A1C Microbiology Date/Time Source Procedure Growth Status 12/04/24 22:14 Blood Blood Culture - Preliminary NO GROWTH AFTER 48 HOURS OF INCUBATION. 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 Ativan for seizure breakthrough Aspirin 81 mg daily Lipitor 20 mg daily Remeron 15 mg at bedtime More recommendation per clinical course Progress: Poor This medical document was created using an electronic medical record system with [employer] dictation system. Although this document has been carefully reviewed, there may still be some phonetic and typographical errors. These areas are purely typographical due to imperfections of the software programs, and do not reflect any compromise in the patient's medical care. Plan discussed with: Other TYRON HUMPHRIES MD Dec 06, 2024 23:18
[2024-12-06] MEDS: MIRTAZAPINE 30 MG TAB PO ONE (23:57)
[2024-12-07 05:00] VITALS: BP 115/49; PULSE 49; RESP 18; TEMP 98; O2SAT 96
[2024-12-07 08:00] VITALS: PULSE 54
--- NOTE | 2024-12-07 09:07 | DVHPN2 ---
Progress Note - Dictate Date Seen: Dec 07, 2024 Medical Necessity Reason Pt with a Central, PICC or Fol: No Subjective Mr. Corley is a right-handed gentleman who denies major medical background, he was discharged from the [facility] on 12/04/2024 with a chief complaint of seizure activity. I saw him on 08/22/2023 for new onset seizure , 12/04/2024 for ALOC, possible seizures I have seen and examined the patient, discussed with his nurse and sitter, he is doing fine, alert oriented x3, but he was said to be confused earlier today He reports the sleeping pills he is on does not not work WBC/HB/PLT/MCV, 12/05/2024: 14.2/13.9/231/95.5 CMP, 03/12/2024: Unremarkable, 12/05/2024: Unremarkable HGB A1c, 12/04/2024: 503 TG/CHO L/LDL/HDL, 08/22/2023: 95/129/71/45 Vitamin B12, 09/17/2024: 326 Folic acid, 09/17/2024: 9.33 TSH, 07/2023: 1.81 EEG, 08/26/23: Normal KIP, 08/25/2023: -No evidence of cardiac source of embolus was detected in the KIP study that was conducted today. -Testing for other causes of stroke including arrhythmia is warranted with event recorder for minimum of 2 weeks Carotid Doppler, 03/12/2024: 1. No hemodynamically significant stenosis noted in the right carotid system. 2. No hemodynamically significant stenosis noted in the left carotid system CT head, 12/04/2024: 1. No acute intracranial hemorrhage 2. Stable small lacunar infarcts in the thalami bilaterally and right occipital lobe CTA, neck, 08/25/2023: There is near complete occlusion of the left vertebral artery. The distal left vertebral artery may may be filled in a retrograde fashion by the basilar artery and right vertebral artery. Carotid is unremarkable. I don't appreciate any fractures or dislocations MRI head, 08/22/2023: No acute abnormal MRI findings of the brain. Encephalomalacia in the right occipital/medial posterior temporal lobe. Remote infarct in the bilateral thalamu MR head, 03/13/2024: No evidence of acute infarction, intracranial hemorrhage, mass effect or hydrocephalus. Right-sided mastoid effusion correlate for possible mastoiditis. Chronic infarcts as detailed above (Small chronic lacunar infarcts in the bilateral thalami. Small chronic infarcts in the right cerebellu vital signs Vital Sign Date Time Temp Pulse Resp B/P (MAP) Pulse Ox O2 Delivery O2 Flow Rate FiO2 12/07/24 05:00 98.0 49 18 115/49 (71) 96 98.0 12/06/24 20:00 Room Air* 0 21 Total Intake and Output 12/06/24 12/06/24 12/07/24 15:00 23:00 07:00 Intake Total 150 ml 560 ml 400 ml Output Total 250 ml 800 ml Balance 150 ml 310 ml -400 ml medications Current Medications Medications Dose Ordered Sig/Sarah Beth Route Start Time Stop Time Status Last Admin Dose Admin Lorazepam 1 mg Q2HP PRN IV 12/04/24 21:45 Levetiracetam 100 ml @ 400 mls/hr BID IV 12/04/24 22:00 12/06/24 20:53 400 MLS/HR Atorvastatin Calcium 20 mg HS PO 12/04/24 22:00 12/06/24 20:53 20 MG Amlodipine Besylate 10 mg DAILY PO 12/05/24 10:00 Metoprolol Tartrate 25 mg BID PO 12/04/24 22:00 12/06/24 21:06 25 MG Ceftriaxone Sodium 50 ml @ 100 mls/hr DAILY@09 IV 12/05/24 09:00 12/07/24 08:39 100 MLS/HR Sodium Chloride 10 ml Q8HR IV 12/04/24 22:00 12/07/24 04:52 10 ML Acetaminophen/ Hydrocodone Bitart 1 tab Q4HP PRN PO 12/04/24 21:45 Ondansetron HCl 4 mg Q4HP PRN IV 12/04/24 21:45 Docusate Sodium 100 mg BIDPRN PRN PO 12/04/24 21:45 12/06/24 20:54 100 MG Acetaminophen 500 mg Q6HP PRN PO 12/04/24 22:00 Nitroglycerin 0.4 mg Q5MINP PRN SL 12/04/24 22:30 Morphine Sulfate 2 mg Q30M PRN IV 12/04/24 22:30 Aspirin 81 mg DAILY PO 12/05/24 10:00 12/07/24 08:39 81 MG Mirtazapine 15 mg HS PO 12/07/24 22:00 objective General: the patient is well developed and nourished. No acute distress. MENTAL STATUS: Awake and alert. Oriented to person, place, time SPEECH, LANGUAGE, HIGHER CORTICAL FUNCTION: no aphasia or dysathria. CRANIAL NERVES: Pupils are equal, round and reactive. EOMs full and conjugate. Facial sensation intact in all three divisions bilaterally. Mandibular strength intact. Facial muscles symmetrical and strength intact. SENSATION: Sensation to touch and pinprick is normal. MOTOR: Normal tone in the upper and lower extremity. Normal muscle bulk. No fasciculations. No abnormal movements or posturing. Muscle strength of the major groups in the extremities is 5/5. REFLEXES: Deep tendon reflexes normal and symmetrical. No pathological reflexes. CEREBELLAR/COORDINATION: Finger to nose is normal bilaterally. 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 Ativan for seizure breakthrough Aspirin 81 mg daily Lipitor 20 mg daily Increase the Remeron to 30 mg at bedtime More recommendation per clinical course This medical document was created using an electronic medical record system with [employer] dictation system. Although this document has been carefully reviewed, there may still be some phonetic and typographical errors. These areas are purely typographical due to imperfections of the software programs, and do not reflect any compromise in the patient's medical care. Prognosis poor Plan discussed with: Other TYRON HUMPHRIES MD Dec 07, 2024 09:07
[2024-12-07 09:15] VITALS: BP 106/53; PULSE 60; RESP 20; TEMP 97.7; O2SAT 96
[2024-12-07] MEDS: MIRTAZAPINE 30 MG TAB PO SCH (11:35)
[2024-12-07 12:46] LABS: Urine Bacteria None Seen /hpf (None Seen)
[2024-12-07 13:00] VITALS: BP 115/49; PULSE 58; RESP 18; O2SAT 95
[2024-12-07 13:00] LABS: Urine Blood Negative /uL (Negative); Urine Clarity Clear (Clear); Urine Color Light-Yellow (Yellow); Urine Mucus FEW (None Seen); Urine Protein, UAD Negative (Negative); Urine Specific Gravity 1.015 (1.001-1.035); Urine Squamous Epithelial Cell None Seen /hpf (<5); Urine Urobilinogen Normal (Negative); Urine WBC < 1 /HPF (0-3)
[2024-12-07 13:16] LABS: Basophils # (auto) 0.1 10 ^3/uL (0-0.2); Basophils % (auto) 0.6 % (0.0-2.0); Eosinophils # (auto) 0.1 10 ^3/uL (0-0.8); Eosinophils % (auto) 0.6 % (0.0-7.0); Hematocrit 42.4 % (41.0-53.0); Hemoglobin 14.6 g/dL (13.5-17.5); Lymphocytes # (auto) 3.5 10 ^3/uL (0.4-5.4); Lymphocytes % (auto) 31.6 % (10.0-50.0); Mean Corpuscular Hemoglobin 32.7 pg (28.0-32.0); Mean Corpuscular Hgb Conc. 34.4 g/dL (32.0-36.0); Mean Corpuscular Volume 95.2 fL (80.0-100.0); Monocytes # (auto) 0.8 10 ^3/uL (0-1.3); Monocytes % (auto) 7.5 % (0.0-12.0); Neutrophils # (auto) 6.6 10 ^3/uL (1.6-8.6); Neutrophils % (auto) 59.7 % (37.0-80.0); Nucleated Red Blood Cells % 0.1 %; Platelet Count (auto) 247 10^3/uL (140-450); Red Blood Cells 4.45 10^6/uL (4.5-5.90); Red Cell Distribution Width 14.3 % (11.8-14.3)
[2024-12-07 13:21] LABS: Chloride 106 mmol/L (98-107); Potassium 3.7 mmol/L (3.5-5.1); Sodium 141 mmol/L (136-145)
[2024-12-07 13:22] LABS: Anion Gap 8 (5-15); Carbon Dioxide 27 mmol/L (20-31)
[2024-12-07 13:23] LABS: Calcium 8.7 mg/dL (8.7-10.4)
[2024-12-07 13:27] LABS: Glucose 97 mg/dL (74-106)
[2024-12-07 13:28] LABS: BUN/Creatinine Ratio 16.5 (10.0-20.0); Blood Urea Nitrogen 17 mg/dL (9-23); Magnesium 2.2 mg/dL (1.6-2.6)
[2024-12-07] MEDS ORDERED: CEPH250C PO (15:39)
--- NOTE | 2024-12-07 15:41 | DVHDS2 ---
Discharge Summary Date of Admission Dec 04, 2024 at 22:19 Date of Discharge: Dec 07, 2024 Admitting Diagnosis Acute Metabolic encephalopathy Labs/Diagnostic Data: Laboratory Results Test 12/07/24 14:13 12/07/24 12:53 12/07/24 12:25 12/05/24 04:18 Troponin I High Sensitivity 21 ng/L (</=54) White Blood Count 11.0 10^3/uL (4.4-10.8) Red Blood Count 4.45 10^6/uL (4.5-5.90) Hemoglobin 14.6 g/dL (13.5-17.5) Hematocrit 42.4 % (41.0-53.0) Mean Corpuscular Volume 95.2 fL (80.0-100.0) Mean Corpuscular Hemoglobin 32.7 pg (28.0-32.0) Mean Corpuscular Hemoglobin Concent 34.4 g/dL (32.0-36.0) Red Cell Distribution Width 14.3 % (11.8-14.3) Platelet Count 247 10^3/uL (140-450) Mean Platelet Volume 8.6 fL (6.9-10.8) Neutrophils (%) (Auto) 59.7 % (37.0-80.0) Lymphocytes (%) (Auto) 31.6 % (10.0-50.0) Monocytes (%) (Auto) 7.5 % (0.0-12.0) Eosinophils (%) (Auto) 0.6 % (0.0-7.0) Basophils (%) (Auto) 0.6 % (0.0-2.0) Neutrophils # (Auto) 6.6 10 ^3/uL (1.6-8.6) Lymphocytes # (Auto) 3.5 10 ^3/uL (0.4-5.4) Monocytes # (Auto) 0.8 10 ^3/uL (0-1.3) Eosinophils # (Auto) 0.1 10 ^3/uL (0-0.8) Basophils # (Auto) 0.1 10 ^3/uL (0-0.2) Nucleated Red Blood Cells 0.1 % Sodium Level 141 mmol/L (136-145) Potassium Level 3.7 mmol/L (3.5-5.1) Chloride Level 106 mmol/L (98-107) Carbon Dioxide Level 27 mmol/L (20-31) Anion Gap 8 (5-15) Blood Urea Nitrogen 17 mg/dL (9-23) Creatinine 1.03 mg/dL (0.700-1.30) Glomerular Filtration Rate Calc 73 mL/min (>90) BUN/Creatinine Ratio 16.5 (10.0-20.0) Serum Glucose 97 mg/dL (74-106) Calcium Level 8.7 mg/dL (8.7-10.4) Magnesium Level 2.2 mg/dL (1.6-2.6) Thyroid Stimulating Hormone (TSH) 2.42 uIU/mL (0.55-4.78) Urine Color Light-yellow (Yellow) Urine Clarity Clear (Clear) Urine pH 6.0 (5.0-9.0) Urine Specific [place] 1.015 (1.001-1.035) Urine Protein Negative (Negative) Urine Ketones 1+ (Negative) Urine Blood Negative /uL (Negative) Urine Nitrite Negative (Negative) Urine Bilirubin Negative (Negative) Urine Urobilinogen Normal mg/dL (Negative) Urine Leukocyte Esterase Negative /uL (Negative) Urine RBC 1 /hpf (0 - 3) Urine Microscopic WBC < 1 /HPF (0-3) Urine Squamous Epithelial Cells None seen /hpf (<5) Urine Bacteria None seen /hpf (None Seen) Urine Mucus Few (None Seen) Urine Glucose Normal mg/dL (Normal) Total Bilirubin 0.6 mg/dL (0.2-1.0) Aspartate Amino Transferase (AST) 44 U/L (<34) Alanine Aminotransferase (ALT) 12 U/L (7-40) Alkaline Phosphatase 61 U/L (46-116) Total Protein 6.6 g/dL (5.7-8.2) Albumin 4.1 g/dL (3.2-4.8) Test 12/04/24 22:14 12/04/24 16:33 Hemoglobin A1c 5.3 % A1C (<5.7) Other Laboratory Tests 12/07/24 12:53 Brief Hx & Hospital Course: The patient is a 79-year-old male with past medical history of CVA, hyperlipidemia, seizures, and hypertension who presented to [facility] ED for evaluation of seizures activity. As reported by patient had witnessed generalized seizure, remains postictal longer than usual, so EMS were called. Patient was seen and evaluated in the ED, laboratory data shows WBC 15.2, platelets 257, sodium 143, potassium 5.3, BUN 13, creatinine 1.16, glucose 163, hemoglobin A1c 5.3, calcium 9.3, troponin 55, blood pressure 145/55, heart rate 82, temperature 99.0 F, O2 saturation 96% on room. Patient was treated with Keppra. Will be discharged home with Keflex for possible UTI. Condition at Discharge: Stable Final Diagnosis/Problems List Acute Metabolic encephalopathy due to UTI Epilepsy: Keppra, consult for Dr. Giles Elevated troponin Leukocytosis, unspecified Post-ictal state Altered mental status Epilepsy, unspecified, not intractable, without status epilepticus Discharge Disposition: Home Discharge Instruct/Medications Diet: Regular Activity: Light activity Follow Up/Referral: Dr. Pelayo in 1 week Medications: Keflex Discharge Statement: "Patient was advised to return to the ER or call 911 if any headaches, dizziness, shortness of breath, chest pain, abdominal pain, bleeding, fevers, or worsening of medical condition. Patient was counseled about treatment plan, medications, possible side effects, patientverbalized understanding. All questions were answered to the best of my ability. This discharge took greater then 30 minutes in planning, reviewing documentation, counseling the patient, and discussing with other team members." ASSESSMENT ASSESSMENT Assessment Date of Service: Dec 07, 2024 Billing Provider: KELECHI PELAYO MD Common Visit Codes: 77052-UEN/OBS DISCH DAY >30min KELECHI PELAYO MD Dec 07, 2024 15:41
[2024-12-07 16:35] VITALS: BP 129/73; PULSE 70; RESP 18; TEMP 98.1; O2SAT 96
[2024-12-07 16:54] VITALS: BP 129/73; PULSE 70; RESP 18; TEMP 98.1; O2SAT 96
[2024-12-07] MEDS ORDERED: MIRTAZAPINE 30 MG TAB PO SCH (22:00)
== END 2024-12-07 18:17 | disposition home or self-care (01) | DRG 100 ==
LOC: EDBD 16:01 → ER 16:01 → EDUNIT# 16:01 → OVERFLOW 22:19 → TELE-CENTR 12-05 13:30
PROVIDERS: ADMIT Internal Medicine; ATTEND Internal Medicine
DX: G40.909 Epilepsy, unspecified, not intractable, without status epilepticus (principal); G93.41 Metabolic encephalopathy; N39.0 Urinary tract infection, site not specified; R79.89 Other specified abnormal findings of blood chemistry; D72.829 Elevated white blood cell count, unspecified; G47.00 Insomnia, unspecified; F17.210 Nicotine dependence, cigarettes, uncomplicated; I10 Essential (primary) hypertension; F03.90 Unspecified dementia, unspecified severity, without behavioral disturbance, psychotic disturbance, mood disturbance, and anxiety; Z86.73 Personal history of transient ischemic attack (TIA), and cerebral infarction without residual deficits; Z82.49 Family history of ischemic heart disease and other diseases of the circulatory system; Z79.899 Other long term (current) drug therapy; Z79.82 Long term (current) use of aspirin
CPT/HCPCS: 36415; 70450; 71045; 80048; 80053; 81001; 82542; 83036; 83735; 84443; 84484; 85025; 87040; 93005; 96372; 96374; 96376; 99291; G0378

== ENCOUNTER 2025-05-22 05:51 | Inpatient (IN) | payer MEDICARE, MEDICAID ==
[~2025-05-22] VITALS: Ht 170.2 cm; Wt 57.4 kg
[~2025-05-22 05:51] MED LIST changes: +CEPH250C PO; -CIPR-173 PO; -HYDR-4902 PO; -KEP500T PO
--- NOTE | 2025-05-22 06:50 | ED.PDOC ---
HPI (NEURO) HPI Comments 79-year-old male, brought in by ambulance, with past medical history of CVA, HLD, HTN, and seizures presents to the emergency department for chief complaint of s/p seizure. EMS reports, patient is coming from home where he had a witnessed tonic-clonic seizure lasting approximately x1 minute. Per EMS, patient feel onto carpet and no significant signs of trauma are noted. EMS relays patient does currently take Keppra however, dosage is unknown. Upon arrival to the emergency department, patient is postictal; no other symptoms or modifying factors are obtainable at this time. Chief Complaint: Seizure Time Seen by MD: 06:45 Primary Care Provider: UNKNOWN Reviewed Notes: Nurses Notes, Supervisory Forester Notes, Medications, Allergies Information Source: Emergency Med Personnel Mode of Arrival: EMS Severity: Moderate Timing: Minutes Duration: Minutes Prehospital treatment: None Seizure Quality: Tonic-clonic Onset: At rest Circumstances: Spontaneous Symptoms: None Before: Normal During: Awake History of: CVA, Hypertension, Seizure Disorder Modifying factors: Nothing Associated Signs and Symptoms: None Past Medical History PAST MEDICAL HISTORY: CVA, High Lipids, HTN, Seizures Surgical History: Pt Confused Family History Family History: Reviewed,noncontributory to illness, Unknown, Pt Confused Social History Smoker: Cigarettes, Pt Confused Alcohol: Denies ETOH Use, Pt Confused Drugs: Denies Drug Use, Pt Confused Lives In: Home, Pt Confused Constitutional: denies: chills, diaphoresis, fatigue, fever, malaise, sweats, weakness, others EENTM: denies: blurred vision, double vision, ear bleeding, ear discharge, ear drainage, ear pain, ear ringing, eye pain, eye redness, hearing loss, mouth pain, mouth swelling, nasal discharge, nose bleeding, nose congestion, nose pain, photophobia, tearing, throat pain, throat swelling, voice changes, others Respiratory: denies: cough, hemoptysis, orthopnea, SOB at rest, shortness of breath, SOB with excertion, stridor, wheezing, others Cardiovascular: denies: chest pain, dizzy spells, diaphoresis, Dyspnea on exertion, edema, irregular heart beat, left arm pain, lightheadedness, palpitations, PND, syncope, others Gastrointestinal: denies: abdomen distended, abdominal pain, blood streaked bowels, constipated, diarrhea, dysphagia, difficulty swallowing, hematemesis, melena, nausea, poor appetite, poor fluid intake, rectal bleeding, rectal pain, vomiting, others Genitourinary: denies: burning, dysuria, flank pain, frequency, hematuria, incontinence, penile discharge, penile sore, pain, testicle pain, testicle swelling, urgency, others Neurological: reports: seizure; denies: dizziness, fainting, headache, left sided numbness, left sided weakness, numbness, paresthesia, pre-existing deficit, right sided numbness, right sided weakness, speech problems, tingling, tremors, weakness, others Musculoskeletal: denies: back pain, gout, joint pain, joint swelling, muscle pain, muscle stiffness, neck pain, others Integumetry: denies: bruises, change in color, change in hair/nails, dryness, laceration, lesions, lumps, rash, wounds, others Allergic/Immunocompromised: denies: Difficulty Healing, Frequent Infections, Hives, Itching, others Hematologic/Lymphatic: denies: anemia, blood clots, easy bleeding, easy bruising, swollen glands, others Endocrine: denies: excessive hunger, excessive sweating, excessive thirst, excessive urination, flushing, intolerance to cold, intolerance to heat, unexplained weight gain, unexplained weight loss, others Psychiatric: denies: anxiety, bipolar disorder, depression, hopeless, panic disorder, schizophrenia, sleepless, suicidal, others All Other Systems: Reviewed and Negative Physical Exam General Appearance: Moderate Distress HEENT: Normal ENT Inspection, Pharynx Normal, TMs Normal Neck: Full Range of Motion, Non-Tender, Normal, Normal Inspection Respiratory: Chest Non-Tender, Lungs Clear, No Accessory Muscle Use, No Respiratory Distress, Normal Breath Sounds Cardiovascular: No Edema, No JVD, No Murmur, No Gallop, Normal Peripheral Pulses, Regular Rate/Rhythm Breast Exam: Deferred Gastrointestinal: No Organomegaly, Non Tender, No Pulsatile Mass, Normal Bowel Sounds, Soft Genitalia: Deferred Pelvic: Deferred Rectal: Deferred Extremities: No calf tenderness, Normal capillary refill, Normal inspection, Normal range of motion, Non-tender, No pedal edema Musculoskeletal : Apperance: Normal Neurologic: Disoriented Cerebellar Function: NOT DONE Reflexes: NOT DONE Skin: Normal Color Peripheral Pulses: 3+ Radial (R), 3+ Radial (L) Lymphatic: No Adenopathy Was a procedure done? Was a procedure done?: No Differential Diagnosis (SZ) Seizure: Psychogenic Seizure, Closed Head Injury, CVA/TIA, Epilepsy-Break Through, Epilepsy-Status X-Ray, Labs, Meds, VS Vital Signs Date Time Temp Pulse Resp B/P (MAP) Pulse Ox O2 Delivery O2 Flow Rate FiO2 05/22/25 06:03 98.6 89 20 176/71 96 98.6 Lab Test 05/22/25 06:50 Range/Units White Blood Count 16.1 H 4.4-10.8 10^3/uL Red Blood Count 4.70 4.5-5.90 10^6/uL Hemoglobin 14.9 13.5-17.5 g/dL Hematocrit 45.4 41.0-53.0 % Mean Corpuscular Volume 96.6 80.0-100.0 fL Mean Corpuscular Hemoglobin 31.7 28.0-32.0 pg Mean Corpuscular Hemoglobin Concent 32.8 32.0-36.0 g/dL Red Cell Distribution Width 13.6 11.8-14.3 % Platelet Count 324 140-450 10^3/uL Mean Platelet Volume 8.1 6.9-10.8 fL Neutrophils (%) (Auto) 90.3 H 37.0-80.0 % Lymphocytes (%) (Auto) 5.8 L 10.0-50.0 % Monocytes (%) (Auto) 3.2 0.0-12.0 % Eosinophils (%) (Auto) 0.0 0.0-7.0 % Basophils (%) (Auto) 0.7 0.0-2.0 % Neutrophils # (Auto) 14.5 H 1.6-8.6 10 ^3/uL Lymphocytes # (Auto) 0.9 0.4-5.4 10 ^3/uL Monocytes # (Auto) 0.5 0-1.3 10 ^3/uL Eosinophils # (Auto) 0 0-0.8 10 ^3/uL Basophils # (Auto) 0.1 0-0.2 10 ^3/uL Nucleated Red Blood Cells 0.0 % Sodium Level Pending Potassium Level Pending Chloride Level Pending Carbon Dioxide Level Pending Anion Gap Pending Blood Urea Nitrogen Pending Creatinine Pending Glomerular Filtration Rate Calc Pending BUN/Creatinine Ratio Pending Serum Glucose Pending Calcium Level Pending Patient disoriented pain Postictal. WBC elevated. Possible sepsis. Establish intravenous access. Was given fluids. Was given Rocephin. Was given azithromycin. Waiting for family. Continue monitoring. Time of 1ST Reevaluation: 07:15 Reevaluation 1ST: Unchanged Patient Education/Counseling: Diagnosis, Treatment Family Education/Counseling: No Family Present Departure 1 Departure Time of Disposition: 07:14 Impression: Primary Impression: Metabolic encephalopathy Additional Impression: Sepsis, unspecified organism Qualified Codes: A41.9 - Sepsis, unspecified organism Disposition: ADMITTED INPATIENT Admit to: Med Surg Condition: Guarded Critical Care Note Critical Care Time?: Yes (90 min-critical care time only) Stability Stability form required: No Heart Score Heart Score: Heart Score Response (Comments) Value History N/A 0 EKG N/A 0 Age N/A 0 Risk Factors N/A 0 Troponin N/A 0 Total 0 I personally scribed for YORDY LUNSFORD MD ([email or web address]) on 05/22/25 at 06:50. Electronically submitted by Areli Franklin ([email or web address]). YORDY LUNSFORD MD May 22, 2025 06:50
[2025-05-22 07:10] VITALS: PULSE 87; RESP 22; O2SAT 97
[2025-05-22 07:11] LABS: Hematocrit 45.4 % (41.0-53.0); Hemoglobin 14.9 g/dL (13.5-17.5); Mean Corpuscular Hemoglobin 31.7 pg (28.0-32.0); Mean Corpuscular Volume 96.6 fL (80.0-100.0); Nucleated Red Blood Cells % 0.0 %
[2025-05-22 07:17] LABS: Chloride 105 mmol/L (98-107); Potassium 4.6 mmol/L (3.5-5.1)
[2025-05-22 07:18] LABS: Anion Gap 14 (5-15); Calcium 9.8 mg/dL (8.7-10.4); Carbon Dioxide 27 mmol/L (20-31); Sodium 146 mmol/L (136-145)
[2025-05-22 07:23] LABS: BUN/Creatinine Ratio 10.3 (10.0-20.0); Blood Urea Nitrogen 14 mg/dL (9-23)
[2025-05-22 07:28] LABS: Glucose 117 mg/dL (74-106)
[2025-05-22] MEDS: SODIUM CHLORIDE 0.9% 1,000 ML IV ONE ×3 (07:57→10:26)
[2025-05-22 08:48] LABS: Lactic Acid w/Reflex 7.1 mmol/L (0.4-2.0)
[2025-05-22] MEDS: AZITHROMYCIN 500MG/250ML 250 ML IV ONE (09:04)
--- NOTE | 2025-05-22 09:13 | DVHHP2 ---
History of Present Illness History of Present Illness This is a 89-year-old male with PMHx of chronic stroke, left vertebral artery occlusion, hypertension, hyperlipidemia, and seizures, who presented after being found seizing at home. History is limited due to the patient being post-ictal and no family available at bedside. Information obtained from EMS and EMR. EMS reports a seizure lasting ~1 minute with a fall to the floor; no obvious trauma noted. The patient has been seen multiple times for similar episodes. Review of prior records confirms he is on levetiracetam 500 mg BID, though adherence is unclear. In ED: CBC with WBC 16.1. BMP notable for Cr 1.36. Lactate 7.1, likely elevated secondary to recent seizure activity. Pending CT head. Prior imaging: Brain MRI (Jun): small R occipital and bilateral thalamic infarcts; moderate right mastoid effusion; mild mucosal thickening. Neck CTA: near-complete occlusion of L vertebral artery, likely retrograde filling from contralateral vertebral artery; chronic findings; neurology has previously determined no further interventional options. He will be admitted for seizure stabilization and evaluation. Attempts to contact family unsuccessful; no numbers listed in chart. Awaiting their arrival for collateral history. PAST MEDICAL HISTORY Stroke; left vertebral artery occlusion; hypertension; hyperlipidemia; seizure disorder. MEDICATIONS Levetiracetam 500 mg BID (from EMR). Other home meds unclear due to limited history. ALLERGIES None documented. SOCIAL HISTORY Per previous visits, lives at home with his sister REVIEW OF SYSTEMS Unable to obtain due to post-ictal state. Review of Systems Allergies: Coded Allergies: NO KNOWN ALLERGIES (Unverified , 04/09/24) Medications Current Medications Medications Dose Ordered Sig/Sarah Beth Route Start Time Stop Time Status Last Admin Dose Admin Ceftriaxone Sodium 50 ml @ 100 mls/hr DAILY@09 IV 05/23/25 09:00 Azithromycin 250 ml @ 125 mls/hr DAILY IV 05/23/25 10:00 Levetiracetam 100 ml @ 400 mls/hr BID IV 05/22/25 10:00 Exam Vital Signs Vital Signs Date Time Temp Pulse Resp B/P (MAP) Pulse Ox O2 Delivery O2 Flow Rate FiO2 05/22/25 07:10 87 22 97 Nasal Cannula* 2 28 05/22/25 07:10 99.8 141/51 (81) 99.8 Exam General: Somnolent, post-ictal, arousable to stimuli. No acute distress. HEENT: PERRL, no tongue lacerations. No head trauma. Neck: Supple, no meningismus. CV: Regular rate/rhythm; no murmurs. Resp: Clear to auscultation; no increased work of breathing. GI: Soft, non-tender, non-distended. Ext: No deformities; no edema. Neuro: Post-ictal; moves all extremities; no focal deficits clearly appreciable; unable to fully participate. Labs/Xrays Labs Test 05/22/25 08:00 05/22/25 06:50 Range/Units Lactic Acid Level 7.1 *H 0.4-2.0 mmol/L White Blood Count 16.1 H 4.4-10.8 10^3/uL Red Blood Count 4.70 4.5-5.90 10^6/uL Hemoglobin 14.9 13.5-17.5 g/dL Hematocrit 45.4 41.0-53.0 % Mean Corpuscular Volume 96.6 80.0-100.0 fL Mean Corpuscular Hemoglobin 31.7 28.0-32.0 pg Mean Corpuscular Hemoglobin Concent 32.8 32.0-36.0 g/dL Red Cell Distribution Width 13.6 11.8-14.3 % Platelet Count 324 140-450 10^3/uL Mean Platelet Volume 8.1 6.9-10.8 fL Neutrophils (%) (Auto) 90.3 H 37.0-80.0 % Lymphocytes (%) (Auto) 5.8 L 10.0-50.0 % Monocytes (%) (Auto) 3.2 0.0-12.0 % Eosinophils (%) (Auto) 0.0 0.0-7.0 % Basophils (%) (Auto) 0.7 0.0-2.0 % Neutrophils # (Auto) 14.5 H 1.6-8.6 10 ^3/uL Lymphocytes # (Auto) 0.9 0.4-5.4 10 ^3/uL Monocytes # (Auto) 0.5 0-1.3 10 ^3/uL Eosinophils # (Auto) 0 0-0.8 10 ^3/uL Basophils # (Auto) 0.1 0-0.2 10 ^3/uL Nucleated Red Blood Cells 0.0 % Sodium Level 146 H 136-145 mmol/L Potassium Level 4.6 3.5-5.1 mmol/L Chloride Level 105 98-107 mmol/L Carbon Dioxide Level 27 20-31 mmol/L Anion Gap 14 5-15 Blood Urea Nitrogen 14 9-23 mg/dL Creatinine 1.36 H 0.700-1.30 mg/dL Glomerular Filtration Rate Calc 52 >90 mL/min BUN/Creatinine Ratio 10.3 10.0-20.0 Serum Glucose 117 H 74-106 mg/dL Calcium Level 9.8 8.7-10.4 mg/dL SEPSIS Sepsis Screen Date sepsis recognized/suspect: May 22, 2025 Time Sepsis recognized/suspect: 608 Recent Procedure: No On Antibiotic Therapy: No Respiratory Rate >20: No Heart Rate >90: No Temp<36 C (96.8 F) or >38.3 C: No SBP <90 or MAP <65 mmHG: No New Acute Mental Status Change: Yes Is the patient on CPAP, BIPAP,: No Physician Orders Chest Portable (05/22/25 06:38) Urinalysis (05/22/25 06:38) Head Without Contrast (05/22/25 06:38) Blood Culture (05/22/25 07:15) Azithromycin 500mg/250ml (Zithromax 500m (05/22/25 07:15) Sodium Chloride 0.9% (05/22/25 07:15) Admit (05/22/25 08:51) Code Status (05/22/25 08:51) Vital Signs .PER UNIT PROTOCOL (05/22/25 08:51) Review Orders With Adm.Md (05/22/25 08:51) Maintain Bed Rest (05/22/25 08:51) Npo (Nothing By Mouth) Diet (05/22/25 Breakfast) Oxygen By Face Mask (05/22/25 08:51) Notify Md Of Changes From Base (05/22/25 08:51) Advance Directive (05/22/25 08:51) Urine Bacterial Culture (05/22/25 08:51) Patient Condition (05/22/25 08:51) Allergies (05/22/25 08:51) Drug Screen (05/22/25 08:51) Hemoglobin A1c (05/22/25 08:51) Oxygen By Nasal Cannula (05/22/25 08:51) Stat Ekg For Chest Pain (05/22/25 08:51) Notify Md Of Changes From Base (05/22/25 08:51) 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1 10^3/uL (4.4-10.8) H Lactic Acid Level 7.1 mmol/L (0.4-2.0) *H Medications Medications Dose Ordered Sig/Sarah Beth Route Start Time Stop Time Status Last Admin Dose Admin Azithromycin 250 ml @ 125 mls/hr ONCE ONCE IV 05/22/25 07:15 05/22/25 09:14 05/22/25 09:04 125 MLS/HR Sodium Chloride 1,000 ml @ 1,000 mls/hr Q1H ONCE IV 05/22/25 06:45 05/22/25 07:44 DC 05/22/25 07:57 1,000 MLS/HR Sodium Chloride 1,000 ml @ 1,000 mls/hr Q1H ONCE IV 05/22/25 07:15 05/22/25 08:14 DC 05/22/25 08:59 1,000 MLS/HR Assessment/Plan Assessment/Plan 1. Breakthrough seizure Likely breakthrough seizure given unclear adherence and chronic cerebrovascular disease. Restart levetiracetam [address]. Seizure precautions. CT head pending to rule out acute pathology. Correct metabolic derangements; trend lactate to ensure clearance. 2. Chronic cerebrovascular disease (prior strokes, near-complete L vertebral a rtery occlusion) Neurology previously determined no further endovascular options. Continue conservative management. Maintain BP within permissive but stable range; avoid hypotension. Resume aspirin/statin once patient able to take PO 3. Suspected aspiration pneumonia Given seizure + fall + elevated WBC + risk of aspiration. Start ceftriaxone + azithromycin as ordered. NPO while somnolent. Monitor for fever, hypoxia. Pending chest x ray 4. Lactic acidosis secondary to seizure Lactate 7.1 likely from prolonged tonicclonic activity. Trend lactate. Gentle IV fluids; avoid fluid overload due to age. 5. GWEN on CKD Monitor BMP daily. Avoid nephrotoxins. 6. Hypertension, hyperlipidemia Resume home medications once patient takes PO. Continue statin and aspirin after swallow evaluation. No family contact numbers in EMR. Await family arrival for collateral, code status clarification, and goals of care. Admit to med-surg for monitoring. Case discussed with Dr Dyer Plan discussed with: Other (rn) My Orders Orders - ROSITA SALAMANCA RESIDENT Procedure Category Date Status Time Admit ADMIT 05/22/25 Transmitted 08:51 Code Status CODE 05/22/25 Transmitted 08:51 Vital Signs [facility] 05/22/25 In Process 08:51 Review Orders With [facility] 05/22/25 In Process Adm. 08:51 Maintain Bed Rest [facility] 05/22/25 In Process 08:51 Npo (Nothing By DIET 05/22/25 Transmitted Mouth) Diet Breakfast Oxygen By Face Mask RT 05/22/25 Transmitted 08:51 Notify Of Changes [facility] 05/22/25 In Process From Base 08:51 Advance Directive [facility] 05/22/25 In Process 08:51 Urine Bacterial [facility] 05/22/25 Logged Culture 08:51 Patient Condition ORDERS 05/22/25 Transmitted 08:51 Allergies [facility] 05/22/25 In Process 08:51 Drug Screen LAB 05/22/25 Logged 08:51 Hemoglobin A1c LAB 05/22/25 In Process 08:51 Oxygen By Nasal RT 05/22/25 Transmitted Cannula 08:51 Stat Ekg For Chest [facility] 05/22/25 In Process Pain 08:51 Notifjohn Blanchard Of Changes [facility] 05/22/25 In Process From Base 08:51 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[employer] 05/22/25 In Process 24 Hours 08:51 Emergency Dysrhythmia [facility] 05/22/25 In Process Protocol 08:51 Rhythm Strips Once [facility] 05/22/25 In Process Every Shift 08:51 Ceftriaxone 1gm/50ml PHA 05/23/25 In Process (Rocephin) 09:00 Azithromycin PHA 05/23/25 In Process 500mg/250ml 10:00 Levetiracetam (Keppra) LAB 05/22/25 In Process 08:51 Levetiracetam 500 PHA 05/22/25 In Process Mg/100ml (Levetiraceta 10:00 Date of Service: May 22, 2025 Billing Provider: BAYLEE DYER MD Common Visit Codes: [id number] INP/OBS CARE (HIGH) ROSITA SALAMANCA RESIDENT May 22, 2025 09:13
[2025-05-22] MEDS: levETIRAcetam 500 mg/100ml 100 ML IV SCH (10:26)
[2025-05-22 15:00] LABS: Urine Protein, UAD Negative (Negative)
[2025-05-22 15:47] LABS: Amphetamine Screen, Urine Neg (NEGATIVE); Barbiturate Scree,Urine Neg (NEGATIVE); Benzodiazephine Screen, Urine Neg (NEGATIVE); Cannabinoid Screen, Urine Pos (NEGATIVE); Cocaine Screen, Urine Neg (NEGATIVE); Opiate Scree,Urine Neg (NEGATIVE); Phencyclidine Screen, Urine Neg (NEGATIVE)
[2025-05-22 19:30] VITALS: RESP 22; O2SAT 97
[2025-05-23 04:41] LABS: Hematocrit 39.6 % (41.0-53.0); Hemoglobin 13.4 g/dL (13.5-17.5); Mean Corpuscular Hemoglobin 32.2 pg (28.0-32.0); Mean Corpuscular Volume 95.0 fL (80.0-100.0); Nucleated Red Blood Cells % 0.0 %
[2025-05-23 04:52] LABS: Alanine Aminotransferase 15 U/L (7-40); Albumin 3.6 g/dL (3.2-4.8); Alkaline Phosphatase 64 U/L (46-116); Anion Gap 10 (5-15); BUN/Creatinine Ratio 11.2 (10.0-20.0); Blood Urea Nitrogen 11 mg/dL (9-23); Carbon Dioxide 25 mmol/L (20-31); Glucose 78 mg/dL (74-106); Sodium 143 mmol/L (136-145); Total Protein 5.9 g/dL (5.7-8.2)
[2025-05-23 04:53] LABS: Bilirubin, Total 0.9 mg/dL (0.2-1.0)
[2025-05-23 04:56] LABS: Calcium 8.3 mg/dL (8.7-10.4); Chloride 108 mmol/L (98-107); Potassium 3.4 mmol/L (3.5-5.1)
--- NOTE | 2025-05-23 06:24 | DVH ---
CHEST RADIOGRAPH Indication: sob Technique: Single frontal view of the chest was obtained Comparison: XY CHEST PORTABLE on DOS: 12/04/24. FINDINGS: Lines and Tubes: None Lungs: No focal consolidation. Pleura: No effusion. No pneumothorax. Cardiomediastinal contours: Unremarkable Bones: No acute osseous abnormality. Deformity of the left humeral head. IMPRESSION: 1. No acute cardiopulmonary disease.
--- NOTE | 2025-05-23 07:05 | DVH ---
EXAM: CT HEAD WITHOUT CONTRAST INDICATION: altered TECHNIQUE: CT of the head without intravenous contrast. Coronal and sagittal reformatted images are submitted. Radiation Dose : 1. Head: CT Dose: CTDI volume is 59.19 mGy. Dose-length product is 947.01 mGy*cm The dose indicators for CT are the volume Computed Tomography (CT) Dose Index (CTDIvol) and the Dose Length Product (DLP), and are measured in units of mGy and mGy-cm, respectively. These indicators are not patient dose, but values generated from the CT scanner acquisition factors. The report includes radiation exposure data for exposures received during this examination. All CT scans at this medical facility are performed using dose modulation techniques as appropriate to a performed exam including the following: Automated exposure control was utilized; adjustment of the MA and/or KV according to patient size; and use of iterative reconstruction technique. COMPARISON: CT HEAD WITHOUT CONTRAST on DOS: 12/04/24. FINDINGS: There is no evidence of acute intracranial hemorrhage, extra-axial collection, mass effect, midline shift, herniation or hydrocephalus. There are chronic lacunar infarcts in the bilateral thalami. There is an old infarct in the medial right occipital lobe. The ventricles, sulci and cisterns are age appropriate. The garcia-white differentiation is intact. The visualized paranasal sinuses and mastoid air cells are clear. No depressed calvarial fracture. The surrounding soft tissues are unremarkable. IMPRESSION: 1. No acute intracranial abnormality. 2. Chronic lacunar infarcts in the bilateral thalami. 3. Old infarct in the medial right occipital lobe.
[2025-05-23 07:30] VITALS: PULSE 67; RESP 11; O2SAT 99
[2025-05-23 07:41] LABS: Magnesium 1.9 mg/dL (1.6-2.6)
[2025-05-23] MEDS: SODIUM CHLORIDE 0.9% 1,000 ML IV SCH ×2 (08:30→11:27)
[2025-05-23] MEDS: POTASSIUM CHL 20 Meq TABLET PO ONE (08:31)
[2025-05-23 08:35] LABS: Creatine Kinase IFCC 1365.0 U/L (46-171)
[2025-05-23] MEDS ORDERED: AZITHROMYCIN 500MG/250ML 250 ML IV SCH (10:00)
[2025-05-23] MEDS: SODIUM CHLORIDE 0.9% 1,000 ML IV ONE (10:15)
--- NOTE | 2025-05-23 10:36 | DVHPNRES ---
Progress Note Date Seen: May 23, 2025 Resident Creating Document: ETHAN SANZ RESIDENT Medical Necessity Reason Pt with a Central, PICC or Fol: No Subjective Review of Systems This is a 79-year-old male with PMHx of chronic stroke, left vertebral artery occlusion, hypertension, hyperlipidemia, and seizures, who presented after being found seizing at home. History is limited due to the patient being post-ictal and no family available at bedside. Information obtained from EMS and EMR. EMS reports a seizure lasting ~1 minute with a fall to the floor; no obvious trauma noted. The patient has been seen multiple times for similar episodes. Patient reported he was noncompliant with the treatment as he did not have medicine for months. Review of prior records confirms he is on levetiracetam 500 mg BID. Initial lab workup revealed CBC with WBC 16.1. BMP notable for Cr 1.36. Lactate 7.1, likely elevated secondary to recent seizure activity. CT head -Chronic lacunar infarcts in the bilateral thalami. Old infarct in the medial right occipital lobe. Prior images Brain MRI (Jun): small R occipital and bilateral thalamic infarcts; moderate right mastoid effusion; mild mucosal thickening. Neck CTA: near-complete occlusion of L vertebral artery, likely retrograde filling from contralateral vertebral artery; chronic findings; neurology has previously determined no further interventional options. PMH-chronic stroke, left vertebral artery occlusion, hypertension, hyperlipidemia, and seizures PSH- none Allergy- NKDA Personal History/ Social History- occasional smoker, use marijuana, denies alcoholism, Review of other system Cardiovascular- deny acute chest pain or shortness of breath or cough or palpitation Respiratory denies cough or short of breath or wheezing Gastrointestinal- denies any rectal bleeding, nausea or vomiting Musculoskeletal-denies acute joint swelling or tenderness or redness Neurological- seizure Psychiatry- denies depression or SI or HI Skin- denies acute rash or purpura Patient was seen today at bedside, labs and chart reviewed. Patient reported he can not recall all the event Pending Keppra level. Patient on Keppra IV b.i.d.. CT head no acute-CT head -Chronic lacunar infarcts in the bilateral thalami. Old infarct in the medial right occipital lobe. Patient had blood sugar 66, patient is awake and alert, no symptom, oral juice was given, ordered IV dextrose 10% at rate of 75 mL/hour. Spoke to patient's sister Mariah, [phone], discussed patient's current medical condition and answered her Objective vital signs Vital Sign Date Time Temp Pulse Resp B/P (MAP) Pulse Ox O2 Delivery O2 Flow Rate FiO2 05/23/25 08:24 61 05/23/25 07:30 97.9 11 134/71 (92) 99 97.9 05/23/25 07:30 Room Air* 0 21 medications Current Medications Medications Dose Ordered Sig/Sarah Beth Route Start Time Stop Time Status Last Admin Dose Admin Levetiracetam 100 ml @ 400 mls/hr BID IV 05/22/25 10:00 05/23/25 10:18 400 MLS/HR Pantoprazole Sodium 40 mg DAILY@0600 PO 05/24/25 06:00 Sodium Chloride 1,000 ml @ 200 mls/hr Q5H IV 05/23/25 10:00 Examination General examination- awake, alert, oriented HEENT- PEERLA, no acute nasal discharge Cardiovascular- S1-S2 audible, rate and rhythm regular, no murmur Respiratory- CTAB, no wheeze or rhonchi Gastrointestinal-nontender, bowel sound+. Nondistended Musculoskeletal-no acute joint swelling or tenderness or redness Lower extremity- no leg edema Neurological- cranial nerves intact, no acute dysarthria or dysphagia Psychiatry- denies depression or SI or HI Skin- no acute rash or purpura laboratory and microbiology Laboratory Tests 05/23/25 04:19 Test 05/23/25 04:19 Range/Units Serum Glucose 78 74-106 mg/dL Microbiology Date/Time Source Procedure Growth Status 05/22/25 08:15 Blood Blood Culture - Preliminary NO GROWTH AFTER 24 HOURS OF INCUBATION. Resulted Problem List/Assessment/Plan Problem List/Assessment/Plan Assessment and plan # Acute Breakthrough seizure # Likely breakthrough seizure given med nonadherence and chronic cerebrovascular disease.. CT head -CT head -Chronic lacunar infarcts in the bilateral thalami. Old infarct in the medial right occipital lobe. -continue levetiracetam as prescribed -pending levetiracetam level -seizure precaution 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) -continue current conservative management -continue aspirin and atorvastatin as prescribed -monitor clinically # Suspected aspiration pneumonia -CT head -CT head -Chronic lacunar infarcts in the bilateral thalami. Old infarct in the medial right occipital lobe. Given seizure + fall + elevated WBC + risk of aspiration. -no acute sign or symptom of distress -patient's room air -we will continue monitoring clinically # Lactic acidosis secondary to seizure Lactate 7.1 > 4.5> 1.0 -continue IV fluid as prescribed # GWEN on CKD -avoid dehydration and nephrotoxic meds -continue IV fluid as prescribed -monitor BMP # suspected acute rhabdomyolysis -no acute muscular injury -CPK 1365 -continue IV normal fluid as prescribed # Leukocytosis likely reactive -no acute fever or dysuria -WBC 16 K -we will continue monitoring CBC # Hypertension, #hyperlipidemia -we will continue monitoring blood pressure -continue atorvastatin as prescribed # recurrent hypoglycemia likely from starvation -started patient on cardiac diet -continue IV fluid as prescribed -monitor blood sugar # substance abuse -UDS positive for marijuana -patient is counseled about the effect of substance abuse on health Goals of care, Code status full code; discussed with >15 minutes PUD prophylaxis: Pantoprazole DVT prophylaxis: Lovenox Plan discussed with Dr. Dyer, nursing staff, sister Total time spent on patient evaluation, chart review, assessment and plan, discussion discussion >35 minutes Plan discussed with: Patient, Other (sister,RN) My Orders My Orders Orders - ETHAN SANZ RESIDENT Procedure Category Date Status Time Vitamin B12 LAB 05/23/25 In Process 07:18 Folate (Folic Acid) LAB 05/23/25 In Process 07:18 Pantoprazole Tablet PHA 05/24/25 In Process (Protonix Tablet) 06:00 Sequential NEHAL 05/23/25 In Process Compression Device 07:37 Sodium Chloride 0.9% PHA 05/23/25 In Process 10:00 Magnesium Sulfate PHA 05/23/25 In Process 1gm/100ml 10:00 Date of Service: May 23, 2025 Billing Provider: BAYLEE DYER MD Common Visit Codes: [id number] INP/OBS CARE(HIGH) ETHAN SANZ RESIDENT May 23, 2025 10:36 MÓNIAC FELTON May 24, 2025 08:09
[2025-05-23] MEDS: MAGNESIUM SULFATE 1GM/100ML 100 ML IV ONE (10:55)
[2025-05-23] MEDS: DEXTROSE 10% 1,000 ML IV SCH (14:15)
[2025-05-23] MEDS: DEXTROSE 10% 1,000 ML IV ONE (14:25)
[2025-05-23] MEDS: D5W/SOD CHLO 0.9% 1,000 ML IV SCH (15:55)
[2025-05-23] MEDS: ASPirin-EC 81 mg tab PO ONE (18:12)
[2025-05-23 20:50] VITALS: PULSE 62; RESP 15; O2SAT 97
[2025-05-23] MEDS: ATORVASTATIN 20 MG TAB PO SCH (22:00)
[2025-05-23 22:04] VITALS: BP 138/42; PULSE 42; RESP 18; TEMP 97.5; O2SAT 97
[2025-05-24] VITALS (8 sets, daily range): BP systolic 124–139; BP diastolic 56–65; PULSE 49–65; RESP 18–21; TEMP 97.5–98.3; O2SAT 90–100
[2025-05-24] MEDS: PANTOPRAZOLE 40 MG TAB PO SCH (05:52)
[2025-05-24 06:05] LABS: Hematocrit 39.8 % (41.0-53.0); Hemoglobin 13.6 g/dL (13.5-17.5); Mean Corpuscular Hemoglobin 32.8 pg (28.0-32.0); Mean Corpuscular Volume 96.0 fL (80.0-100.0); Nucleated Red Blood Cells % 0.1 %
[2025-05-24 06:16] LABS: Chloride 105 mmol/L (98-107); Sodium 141 mmol/L (136-145)
[2025-05-24 06:17] LABS: Anion Gap 12 (5-15); Carbon Dioxide 24 mmol/L (20-31)
[2025-05-24 06:22] LABS: BUN/Creatinine Ratio 12.9 (10.0-20.0); Blood Urea Nitrogen 12 mg/dL (9-23); Glucose 75 mg/dL (74-106); Magnesium 2.3 mg/dL (1.6-2.6)
[2025-05-24 06:23] LABS: Calcium 8.2 mg/dL (8.7-10.4); Potassium 3.4 mmol/L (3.5-5.1)
[2025-05-24 06:28] LABS: Creatine Kinase IFCC 695 U/L (46-171)
[2025-05-24] MEDS ORDERED: VANCOMYCIN PER PHARMACY 0 MG IV SCH (07:45)
[2025-05-24] MEDS: VANCOMYCIN 1GM/250ML KIT 250 ML IV ONE (08:49)
[2025-05-24] MEDS: POTASSIUM CHL 20 Meq TABLET PO ONE (08:50)
[2025-05-24] MEDS: ASPirin-EC 81 mg tab PO SCH (10:48)
[2025-05-24] MEDS ORDERED: levETIRAcetam 500 MG TAB PO ONE (11:15)
--- NOTE | 2025-05-24 15:28 | DVHPNRES ---
Progress Note Date Seen: May 24, 2025 Resident Creating Document: ETHAN SANZ RESIDENT Medical Necessity Reason Pt with a Central, PICC or Fol: No Subjective Review of Systems This is a 79-year-old male with PMHx of chronic stroke, left vertebral artery occlusion, hypertension, hyperlipidemia, and seizures, who presented after being found seizing at home. History is limited due to the patient being post-ictal and no family available at bedside. Information obtained from EMS and EMR. EMS reports a seizure lasting ~1 minute with a fall to the floor; no obvious trauma noted. The patient has been seen multiple times for similar episodes. Patient reported he was noncompliant with the treatment as he did not have medicine for months. Review of prior records confirms he is on levetiracetam 500 mg BID. Initial lab workup revealed CBC with WBC 16.1. BMP notable for Cr 1.36. Lactate 7.1, likely elevated secondary to recent seizure activity. CT head -Chronic lacunar infarcts in the bilateral thalami. Old infarct in the medial right occipital lobe. Prior images Brain MRI (Jun): small R occipital and bilateral thalamic infarcts; moderate right mastoid effusion; mild mucosal thickening. Neck CTA: near-complete occlusion of L vertebral artery, likely retrograde filling from contralateral vertebral artery; chronic findings; neurology has previously determined no further interventional options. PMH-chronic stroke, left vertebral artery occlusion, hypertension, hyperlipidemia, and seizures PSH- none Allergy- NKDA Personal History/ Social History- occasional smoker, use marijuana, denies alcoholism, Review of other system Cardiovascular- deny acute chest pain or shortness of breath or cough or palpitation Respiratory denies cough or short of breath or wheezing Gastrointestinal- denies any rectal bleeding, nausea or vomiting Musculoskeletal-denies acute joint swelling or tenderness or redness Neurological- seizure Psychiatry- denies depression or SI or HI Skin- denies acute rash or purpura Patient was seen today at bedside, labs and chart reviewed. Leukocytosis trending down to 10.4 Potassium replenished Serum creatinine kinase trending down 1365> 625 No observed seizure in last 24 hours Blood culture grew Gram-positive cocci in cluster, ordered vancomycin and echo 2D Ordered EKG Urine culture no growth so far -change levetiracetam from IV to oral form Objective vital signs Vital Sign Date Time Temp Pulse Resp B/P (MAP) Pulse Ox O2 Delivery O2 Flow Rate FiO2 05/24/25 13:00 98.1 49 21 130/58 (82) 96 98.1 05/23/25 22:31 Room Air* 0 21 Total Intake and Output 05/23/25 05/23/25 05/24/25 15:00 23:00 07:00 Intake Total 1697 ml 431.25 ml 105 ml Output Total 900 ml Balance 1697 ml 431.25 ml -795 ml medications Current Medications Medications Dose Ordered Sig/Sarah Beth Route Start Time Stop Time Status Last Admin Dose Admin Pantoprazole Sodium 40 mg DAILY@0600 PO 05/24/25 06:00 05/24/25 05:52 40 MG Dextrose/Sodium Chloride 1,000 ml @ 100 mls/hr Q10H IV 05/23/25 15:15 05/24/25 01:15 100 MLS/HR Aspirin 81 mg DAILY PO 05/24/25 10:00 05/24/25 10:48 81 MG Atorvastatin Calcium 20 mg HS PO 05/23/25 22:00 05/23/25 22:00 20 MG Vancomycin HCl 0 ml @ 0 mls/hr PER PHARMACY IV 05/24/25 07:45 Levetiracetam 500 mg BID PO 05/24/25 22:00 Vancomycin HCl 100 ml @ 100 mls/hr Q12H IV 05/24/25 21:00 Examination General examination- awake, alert, oriented HEENT- PEERLA, no acute nasal discharge Cardiovascular- S1-S2 audible, rate and rhythm regular, no murmur Respiratory- CTAB, no wheeze or rhonchi Gastrointestinal-nontender, bowel sound+. Nondistended Musculoskeletal-no acute joint swelling or tenderness or redness Lower extremity- no leg edema Neurological- cranial nerves intact, no acute dysarthria or dysphagia Psychiatry- denies depression or SI or HI Skin- no acute rash or purpura laboratory and microbiology Laboratory Tests 05/24/25 05:09 Test 05/24/25 05:09 Range/Units Serum Glucose 75 74-106 mg/dL Microbiology Date/Time Source Procedure Growth Status 05/23/25 03:00 Voided Urine Urine Culture - Preliminary No growth Resulted 05/22/25 08:15 Blood Blood Culture - Preliminary NO GROWTH AFTER 48 HOURS OF INCUBATION. Resulted Problem List/Assessment/Plan Problem List/Assessment/Plan Assessment and plan # Acute Breakthrough seizure #Likely breakthrough seizure given med nonadherence and chronic cerebrovascular disease.. CT head -CT head -Chronic lacunar infarcts in the bilateral thalami. Old infarct in the medial right occipital lobe. -change levetiracetam from IV to oral form -pending levetiracetam level -seizure precaution -transfer patient to telemetry 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) -continue current conservative management -continue aspirin and atorvastatin as prescribed -monitor clinically # bacteremia -blood culture revealed Gram-positive cocci in cluster -ordered echo 2D-pending report -ordered vancomycin -ordered EKG #Suspected aspiration pneumonia -CT head -CT head -Chronic lacunar infarcts in the bilateral thalami. Old infarct in the medial right occipital lobe. Given seizure + fall + elevated WBC + risk of aspiration. -no acute sign or symptom of distress -patient in room air -we will continue monitoring clinically #Lactic acidosis secondary to seizure Lactate 7.1 > 4.5> 1.0 -continue IV fluid as prescribed #GWEN on CKD -avoid dehydration and nephrotoxic meds -continue IV fluid as prescribed -monitor BMP # mild acute rhabdomyolysis -no acute muscular injury -CPK 1365>695 -continue IV normal fluid as prescribed # leukocytosis likely reactive -no acute fever or dysuria -WBC trending down - monitoring CBC #Hypertension, #hyperlipidemia -we will continue monitoring blood pressure -continue atorvastatin as prescribed # recurrent hypoglycemia likely from starvation -started patient on cardiac diet -continue IV fluid as prescribed -monitor blood sugar # substance abuse -UDS positive for marijuana -patient was counseled about the effect of substance abuse on health Goals of care, Code status full code PUD prophylaxis: Pantoprazole DVT prophylaxis: Lovenox Plan discussed with Dr. Dyer, nursing staff, sister Total time spent on patient evaluation, chart review, assessment and plan, discussion discussion >35 minutes Plan discussed with: Patient, Other (RN) My Orders My Orders Orders - ETHAN SANZ RESIDENT Procedure Category Date Status Time Education - Smoking NEHAL 05/23/25 In Process Cessation 23:16 * Smoking Cessation CONS 05/23/25 Transmitted Consult 23:16 Hepatitis B Surface LAB 05/23/25 In Process Antigen 23:16 Hepatitis C Antibody LAB 05/23/25 In Process 23:16 Mrsa Screen LIBORIO 05/24/25 Logged 07:36 Vancomycin Per PHA 05/24/25 In Process Pharmacy 07:45 Vancomycin 750mg Kit PHA 05/24/25 In Process (Vancomycin Hcl) 21:00 Vancomycin Per NEHAL 05/24/25 In Process Pharmacy Protoc 21:00 Creatinine LAB 05/25/25 Verified 04:00 Vancomycin,Trough LAB 05/25/25 Verified 20:00 Visit Coding STANDARD RES Billing Provider: ETHAN SANZ Date of Service if different f: May 24, 2025 Common Visit Codes: [id number] INP/OBS CARE(HIGH) ETHAN SANZ May 24, 2025 15:28
--- NOTE | 2025-05-24 20:41 | DVHSR ---
APPROVED REPORT EXAM: Two-dimensional and M-mode echocardiogram with Doppler and color Doppler. Blood Pressure: 124/62 mmHg INDICATION r/o endocarditis RISK FACTORS Height: 5'7", Weight: 148 DIMENSIONS LVDd 5.0 (3.8-5.7cm) LA (2D) 4.0 (1.9-4.0cm) Aortic Root 2.9 (2.0-3.7cm) LVDs 3.1 (2.5-4.0cm) LA (MM) (1.9-4.0cm) Aortic Cusp Exc 0.9 (1.5-2.0cm) EF (%) 68.0 (55-70%) Rt. Atrium 3.9 (1.9-4.0cm) Asc. Aorta cm IVSd 0.9 (0.7-1.1cm) RV (D) 4.2 (1.8-2.4cm) PWd 0.9 (0.7-1.1cm) Mitral Valve Mitral Mitral Stenosis E wave 0.63m/s MV Mean GR. mmHg A wave 0.77m/s MV Peak GR. mmHg E/A ratio 0.8 2D MVA cm2 DECEL Time 142ms PRESS 1/2 Time ms Aortic Valve Aortic Valve Aortic Stenosis V1 1.35m/s AO Mean GR. 6mmHg V2 1.70m/s AO Peak GR. 12mmHg LVOT Diameter 2.0 (1.8-2.4cm) Doppler TARAN 2.49cm2 AI P 1/2 Time 451.32ms Conclusion Left ventricle: The cavity size is normal. Systolic function is janell.l calculated ejection fraction is 68%. Right ventricle: Systolic function is normal Aortic valve: The valve is tricuspid. There is no stenosis. There is moderate aortic regurgitation. Mitral valve: There is mild calcification of mitral valve leaflets. There is a hypoechoic density at the tip of anterior leaflet ( seen on image 34, frames 52- 53/ 157 and image 35, frame 45/155) that does not have typical appearance of vegetation however recommend transesophageal echocardiogram (KIP) to better assess mitral valve if the index of suspicion for infective endocarditis is high. Tricuspid valve: There is trace tricuspid regurgitation. Pulmonic valve:: There is no pulmonic stenosis. There is no regurgitation. Inferior vena cava: The vessel is normal in size. There is more than 50% respiratory phasic variation.
[2025-05-24] MEDS ORDERED: VANCOMYCIN 750mg/100mL IV SCH (21:00)
[2025-05-24] MEDS: VANCOMYCIN 750mg/100mL IV SCH (23:12)
[2025-05-24] MEDS: levETIRAcetam 500 MG TAB PO SCH (23:12)
[2025-05-25 01:00] VITALS: BP 130/50; PULSE 54; RESP 18; TEMP 98; O2SAT 100
[2025-05-25 05:00] VITALS: BP 127/68; PULSE 68; RESP 18; TEMP 97.5; O2SAT 96
[2025-05-25 06:57] LABS: Hematocrit 42.5 % (41.0-53.0); Hemoglobin 14.6 g/dL (13.5-17.5); Mean Corpuscular Hemoglobin 32.7 pg (28.0-32.0); Mean Corpuscular Volume 95.4 fL (80.0-100.0); Nucleated Red Blood Cells % 0.0 %
[2025-05-25 07:16] LABS: Alanine Aminotransferase 20 U/L (7-40); Albumin 3.9 g/dL (3.2-4.8); Alkaline Phosphatase 68 U/L (46-116); Anion Gap 11 (5-15); BUN/Creatinine Ratio 9.4 (10.0-20.0); Blood Urea Nitrogen 10 mg/dL (9-23); Calcium 8.8 mg/dL (8.7-10.4); Carbon Dioxide 26 mmol/L (20-31); Chloride 104 mmol/L (98-107); Glucose 96 mg/dL (74-106); Magnesium 2.1 mg/dL (1.6-2.6); Potassium 3.6 mmol/L (3.5-5.1); Sodium 141 mmol/L (136-145); Total Protein 6.5 g/dL (5.7-8.2)
[2025-05-25 07:17] LABS: Bilirubin, Total 1.0 mg/dL (0.2-1.0)
[2025-05-25 07:26] LABS: Creatine Kinase IFCC 468 U/L (46-171)
[2025-05-25 08:00] VITALS: PULSE 60
[2025-05-25 11:12] LABS: Hepatitis B Surface Antigen Negative (Negative); Hepatitis C Antibody Negative (Negative)
--- NOTE | 2025-05-25 12:08 | DVHINCON2 ---
Date Seen: May 25, 2025 Referring Physician MD Kush resident Reason for Consultation KIP evaluation History of Present Illness This is an 79-year-old male patient who presents to the emergency room with chief complaint of seizure. The patient does not recall having a seizure prior to coming to the emergency room. Per emergency room provider documentation, the patient was brought in via ambulance after having a witnessed tonic-clonic seizure at home. Cardiology has been consulted at this time for trans esophageal echocardiogram evaluation. Initial twelve lead electrocardiogram was ordered and obtained at time of assessment and reveals normal sinus rhythm with baseline wander. The patient denies any cardiac symptoms at time of assessment or prior to emergency room arrival. Significant past medical history includes hypertension, dyslipidemia, cerebrovascular accident, seizure disorder, and benign prostatic hyperplasia. Past Medical History Past medical history reviewed. No other significant than mentioned above. Past Surgical History Denies any previous surgeries Family History: FH: heart attack G8 MOTHER G8 FATHER Family History Family history reviewed. Social History Patient smokes 1-2 pipes of tobacco per day for the last 10 years He denies any illicit drug use He denies any alcohol use Allergies: Coded Allergies: NO KNOWN ALLERGIES (Unverified , 04/09/24) Home Meds Active Scripts Cephalexin (KEFLEX CAPSULE) 250 Mg Cp, 500 MG PO TID for 5 Days, #15 CAP Prov:KELECHI COLVIN MD 12/07/24 Levetiracetam (Levetiracetam) 500 Mg Tab, 500 MG PO BID for 30 Days, #60 TAB Prov:ROSITA SALAMANCA RESIDENT 07/19/24 Amlodipine Besylate (Amlodipine Besylate) 10 Mg Tab, 1 TAB PO DAILY, #30 TAB 5 Refills Prov:ELISA NIELSON MD 08/26/23 Atorvastatin Calcium (ATORVASTATIN CALCIUM) 20 Mg Tab, 20 MG PO HS for 30 Days, #30 TAB Prov:ELISA NIELSON MD 08/26/23 Home Meds Home medications reviewed. Current Medications Current Medications Medications (Trade) Dose Ordered Sig/Sarah Beth Route PRN Reason Start Time Stop Time Status Last Admin Levetiracetam (Keppra Tablet) 500 mg BID PO 05/24/25 22:00 05/25/25 11:14 Vancomycin HCl 100 ml @ 100 mls/hr Q12H IV 05/24/25 21:00 05/24/25 21:58 DC Vancomycin HCl 100 ml @ 100 mls/hr Q12H IV 05/24/25 23:00 05/25/25 11:14 Review of Systems Constitutional: No symptom reported Ears, Nose, & Throat: No symptom reported Eyes: No symptom reported Neurological: Seizure Pulmonary/Respiratory: No symptoms reported Cardiovascular: No symptom reported Gastrointestinal: No symptom reported Genitourinary: No symptom reported Musculoskeletal: No symptom reported Skin: No symptom reported Psychiatric: No symptom reported Endocrine: No symptom reported Hematologic/Lymphatic: No symptom reported Vital Signs Vital Signs Date Time Temp Pulse Resp B/P (MAP) Pulse Ox O2 Delivery O2 Flow Rate FiO2 05/25/25 08:00 Room Air* 0 21 05/25/25 08:00 60 05/25/25 05:00 97.5 18 127/68 (87) 96 97.5 Physical Exam General Appearance: Cooperative. Well-developed. Well-nourished. No acute distress. Pulmonary/Respiratory: Clear, bilateral breaths sounds. Cardiovascular/Chest: Regular rate and rhythm. Peripheral Pulses: 2+ Radial (R). 2+ Radial (L). 2+ Pedal (R). 2+ Pedal (L) Abdominal Exam: Normal bowel sounds. Ankle Exam: Negative ankle edema Lower extremities: Negative lower extremity edema Neuro/Mental Status: A/OX4, coherent. Thoughts/Psych: Normal thought pattern. Appropriate mood and affect. Good judgment and insight. Appearance: No acute distress. Skin Exam: Normal inspection. Normal color. Warm and dry. Labs/Diagnostic Data Labs Test 05/25/25 05:46 05/23/25 08:00 05/23/25 04:19 05/22/25 14:45 Range/Units White Blood Count 8.8 4.4-10.8 10^3/uL Red Blood Count 4.46 L 4.5-5.90 10^6/uL Hemoglobin 14.6 13.5-17.5 g/dL Hematocrit 42.5 41.0-53.0 % Mean Corpuscular Volume 95.4 80.0-100.0 fL Mean Corpuscular Hemoglobin 32.7 H 28.0-32.0 pg Mean Corpuscular Hemoglobin Concent 34.3 32.0-36.0 g/dL Red Cell Distribution Width 13.0 11.8-14.3 % Platelet Count 272 140-450 10^3/uL Mean Platelet Volume 8.6 6.9-10.8 fL Neutrophils (%) (Auto) 64.9 37.0-80.0 % Lymphocytes (%) (Auto) 25.5 10.0-50.0 % Monocytes (%) (Auto) 8.4 0.0-12.0 % Eosinophils (%) (Auto) 0.6 0.0-7.0 % Basophils (%) (Auto) 0.6 0.0-2.0 % Neutrophils # (Auto) 5.7 1.6-8.6 10 ^3/uL Lymphocytes # (Auto) 2.2 0.4-5.4 10 ^3/uL Monocytes # (Auto) 0.7 0-1.3 10 ^3/uL Eosinophils # (Auto) 0.1 0-0.8 10 ^3/uL Basophils # (Auto) 0.1 0-0.2 10 ^3/uL Nucleated Red Blood Cells 0.0 % Sodium Level 141 136-145 mmol/L Potassium Level 3.6 3.5-5.1 mmol/L Chloride Level 104 98-107 mmol/L Carbon Dioxide Level 26 20-31 mmol/L Anion Gap 11 5-15 Blood Urea Nitrogen 10 9-23 mg/dL Creatinine 1.06 0.700-1.30 mg/dL Glomerular Filtration Rate Calc 71 >90 mL/min BUN/Creatinine Ratio 9.4 L 10.0-20.0 Serum Glucose 96 74-106 mg/dL Calcium Level 8.8 8.7-10.4 mg/dL Magnesium Level 2.1 1.6-2.6 mg/dL Total Bilirubin 1.0 0.2-1.0 mg/dL Aspartate Amino Transferase (AST) 39 13-40 U/L Alanine Aminotransferase (ALT) 20 7-40 U/L Alkaline Phosphatase 68 46-116 U/L Creatine Kinase 468 H 46-171 U/L Total Protein 6.5 5.7-8.2 g/dL Albumin 3.9 3.2-4.8 g/dL Lactic Acid Level 1.0 0.4-2.0 mmol/L Vitamin B12 Level 536 211-911 pg/mL Vitamin D 25-Hydroxy 40.6 30.0-100 ng/mL Folic Acid 30.33 >5.38 ng/mL Thyroid Stimulating Hormone (TSH) 0.68 0.55-4.78 uIU/mL Hepatitis B Surface Antigen Negative Negative Hepatitis C Antibody Negative Negative Urine Color Yellow Yellow Urine Clarity Hazy H Clear Urine pH 6.5 5.0-9.0 Urine Specific Marlin 1.007 1.001-1.035 Urine Protein Negative Negative Urine Ketones Negative Negative Urine Blood 1+ H Negative /uL Urine Nitrite Negative Negative Urine Bilirubin Negative Negative Urine Urobilinogen Normal Negative mg/dL Urine Leukocyte Esterase Negative Negative /uL Urine RBC 2 0 - 3 /hpf Urine Microscopic WBC 1 0-3 /HPF Urine Squamous Epithelial Cells Few <5 /hpf Urine Bacteria None seen None Seen /hpf Urine Glucose Normal Normal mg/dL Urine Opiates Screen Neg NEGATIVE Urine Fentanyl Screen Neg NEGATIVE Urine Barbiturates Screen Neg NEGATIVE Urine Phencyclidine Screen Neg NEGATIVE Urine Amphetamines Screen Neg NEGATIVE Urine Benzodiazepines Screen Neg NEGATIVE Urine Cocaine Screen Neg NEGATIVE Urine Cannabinoids Screen Pos NEGATIVE Test 05/22/25 08:00 05/22/25 06:50 Range/Units Levetiracetam Level <2.0 L 10.0-40.0 ug/mL Hemoglobin A1c 5.7 <5.7 % A1C Microbiology Date/Time Source Procedure Growth Status 05/23/25 03:00 Voided Urine Urine Culture - Final Complete 05/22/25 08:15 Blood Blood Culture - Preliminary NO GROWTH AFTER 72 HOURS OF INCUBATION. Resulted Assessment Bacteremia,rule out infective endocarditis Hypertension Dyslipidemia Acute kidney injury History of CVA Seizure disorder Benign prostatic hyperplasia Tobacco use Plan/Recommendation We will continue with the following plan/recommendations (Dr. Alva): A transthoracic echocardiogram reveals an EF of 68%. Case discussed with . It is noted on the mitral valve that there is a hypoechoic density at the tip of the anterior leaflet. The patient is also noted to have preliminary positive blood cultures and a documented low-grade fever during this admission. Given these findings, we will recommend for the patient to undergo a transesophageal echocardiogram to rule out infective endocarditis. Procedure discussed with the patient full detail. The patient is agreeable to undergo the procedure. We will schedule the patient at soonest availability. Thank you for allowing us to care for this patient. Please call with any questions or concerns. Critical care time spent: 44 minutes This medical document was created using an electronic medical record system with voice recognition software and computerized dictation system. Although this document has been carefully reviewed, there might still be some phonetic and typographical errors. Occasional wrong-word or ``sound-alike substitutions may have occurred due to the inherent limitations of voice recognition software. These areas are purely typographical due to imperfections of the software programs and do not reflect any compromise in the patient's medical care. Please read the chart carefully and recognize, using context, where these substitutions have occurred. Plan discussed with: Patient NYHA Physical activity limitations: NA Date of Service: May 25, 2025 Billing Provider: JAMILA MONAE Cardiology Common Codes: [id number] INP/OBS CARE (High) Cardiology Consultation Codes: [id number] CONSULT <45MIN JAMILA MONAE May 25, 2025 12:08
[2025-05-25 14:46] LABS: INR 1.03 (0.9-1.15); Partial Thromboplastin Time 27.9 SEC (24.5-34.5); Prothrombin Time 10.9 sec (9.3-11.8)
[2025-05-25] MEDS: fentaNYL CITRATE 100 MCG/2 ML VL IV ONE (15:00)
[2025-05-25] MEDS: LIDOCAINE VISCOUS 2% 15ML UD MT ONE (15:00)
[2025-05-25] MEDS: MIDAZOLAM HCL 2MG/2ML 2ml VIAL (1mg/ml) IV ONE (15:00)
--- NOTE | 2025-05-25 16:01 | DVHOP2 ---
Operative Report - 2 Report Details Date: 05/25/25 Preop Diagnosis: Sepsis bacteremia Postop Diagnosis: Severe aortic insufficiency Surgeon: Rosendo Alva MD Anesthesiologist: Conscious sedation Anesthesia: Mac, Local Consent: The patient was informed of the risks and benefits of the procedure. These include but are not limited to complications of anesthesia, postoperative infection, incomplete relief of symptoms, recurrence of symptoms, damage to blood vessels, nerves and tendons, deep venous thrombosis, pulmonary embolism and possible need for repeat surgery in the future. Complications: No complications Estimated Blood Loss: Non Findings: Severe aortic insufficiency Indications for Surgery: Bacteremia Name of Procedure Performed Transesophageal echocardiogram Procedure Details Procedure Details: Prior local anesthesia with 2% lidocaine gel to gargle and full informed consent obtained the patient was prepped and draped in the usual fashion, placed in left lateral and semi-Rosario position. Transesophageal probe was passed without difficulty. Standard views obtained. No complications Conclusions: Technically good study. Sinus rhythm. Left atrial enlargement with mild concentric LVH. There is thickening and mild calcification of the aortic leaflets however good mobility is noted less so of the right and left coronary cusps. The mitral and tricuspid are structurally normal the pulmonic is not clearly visualized. Left ventricular function is preserved at 55% with normal RV function. There is mild TR. No ASD. Severe aortic insufficiency with mild mitral insufficiency. No ventricular septal defect. No crossover of bubbles with a bubble study. No pericardial effusion masses or vegetations. Condition Good Disposition Still a Patient Date of Service: May 25, 2025 Billing Provider: ROSENDO ALVA Sr., MD Cardiology Common Codes: 60594-[id number] INP/OBS CARE (High) Cardiology Procedure Codes: 11995-MCR W/IMG DOC INCL PROB ACQ ROSENDO ALVA Sr., MD May 25, 2025 16:01
[2025-05-25 16:15] VITALS: BP 130/39; PULSE 58; RESP 16; O2SAT 98
--- NOTE | 2025-05-25 17:37 | DVHPNRES ---
Progress Note Date Seen: May 25, 2025 Resident Creating Document: ETHAN SANZ RESIDENT Medical Necessity Reason Pt with a Central, PICC or Fol: No Subjective Review of Systems This is a 79-year-old male with PMHx of chronic stroke, left vertebral artery occlusion, hypertension, hyperlipidemia, and seizures, who presented after being found seizing at home. History is limited due to the patient being post-ictal and no family available at bedside. Information obtained from EMS and EMR. EMS reports a seizure lasting ~1 minute with a fall to the floor; no obvious trauma noted. The patient has been seen multiple times for similar episodes. Patient reported he was noncompliant with the treatment as he did not have medicine for months. Review of prior records confirms he is on levetiracetam 500 mg BID. Initial lab workup revealed CBC with WBC 16.1. BMP notable for Cr 1.36. Lactate 7.1, likely elevated secondary to recent seizure activity. CT head -Chronic lacunar infarcts in the bilateral thalami. Old infarct in the medial right occipital lobe. Prior images Brain MRI (Jun): small R occipital and bilateral thalamic infarcts; moderate right mastoid effusion; mild mucosal thickening. Neck CTA: near-complete occlusion of L vertebral artery, likely retrograde filling from contralateral vertebral artery; chronic findings; neurology has previously determined no further interventional options. PMH-chronic stroke, left vertebral artery occlusion, hypertension, hyperlipidemia, and seizures PSH- none Allergy- NKDA Personal History/ Social History- occasional smoker, use marijuana, denies alcoholism, Review of other system Cardiovascular- deny acute chest pain or shortness of breath or cough or palpitation Respiratory denies cough or short of breath or wheezing Gastrointestinal- denies any rectal bleeding, nausea or vomiting Musculoskeletal-denies acute joint swelling or tenderness or redness Neurological- seizure Psychiatry- denies depression or SI or HI Skin- denies acute rash or purpura Patient was seen today at bedside, labs and chart reviewed. Acidosis resolved Creatinine kinase trending down Peña negative for vegetation on mass, LVEF 55%. Ordered repeat blood culture Objective vital signs Vital Sign Date Time Temp Pulse Resp B/P (MAP) Pulse Ox O2 Delivery O2 Flow Rate FiO2 05/25/25 16:15 58 16 130/39 (69) 98 05/25/25 08:00 Room Air* 0 21 05/25/25 05:00 97.5 97.5 Total Intake and Output 05/24/25 05/24/25 05/25/25 14:59 22:59 06:59 Intake Total 350 ml 540 ml 700 ml Output Total 1050 ml 1000 ml Balance 350 ml -510 ml -300 ml medications Current Medications Medications Dose Ordered Sig/Sarah Beth Route Start Time Stop Time Status Last Admin Dose Admin Pantoprazole Sodium 40 mg DAILY@0600 PO 05/24/25 06:00 05/25/25 05:26 40 MG Dextrose/Sodium Chloride 1,000 ml @ 100 mls/hr Q10H IV 05/23/25 15:15 05/25/25 08:40 100 MLS/HR Aspirin 81 mg DAILY PO 05/24/25 10:00 05/25/25 11:15 81 MG Atorvastatin Calcium 20 mg HS PO 05/23/25 22:00 05/24/25 23:12 20 MG Vancomycin HCl 0 ml @ 0 mls/hr PER PHARMACY IV 05/24/25 07:45 Levetiracetam 500 mg BID PO 05/24/25 22:00 05/25/25 11:14 500 MG Vancomycin HCl 100 ml @ 100 mls/hr Q12H IV 05/24/25 23:00 05/25/25 11:14 100 MLS/HR Examination General examination- awake, alert, oriented HEENT- PEERLA, no acute nasal discharge Cardiovascular- S1-S2 audible, rate and rhythm regular, no murmur Respiratory- CTAB, no wheeze or rhonchi Gastrointestinal-nontender, bowel sound+. Nondistended Musculoskeletal-no acute joint swelling or tenderness or redness Lower extremity- no leg edema Neurological- cranial nerves intact, no acute dysarthria or dysphagia Psychiatry- denies depression or SI or HI Skin- no acute rash or purpura laboratory and microbiology Laboratory Tests 05/25/25 05:46 Test 05/25/25 05:46 Range/Units Serum Glucose 96 74-106 mg/dL Microbiology Date/Time Source Procedure Growth Status 05/23/25 03:00 Voided Urine Urine Culture - Final Complete 05/22/25 08:15 Blood Blood Culture - Preliminary NO GROWTH AFTER 72 HOURS OF INCUBATION. Resulted Problem List/Assessment/Plan Problem List/Assessment/Plan Assessment and plan # Acute Breakthrough seizure #Likely breakthrough seizure given med nonadherence and chronic cerebrovascular disease.. CT head -CT head -Chronic lacunar infarcts in the bilateral thalami. Old infarct in the medial right occipital lobe. -change levetiracetam from IV to oral form -pending levetiracetam level -seizure precaution - patient Oon telemetry 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) -continue current conservative management -continue aspirin and atorvastatin as prescribed -monitor clinically # bacteremia -blood culture revealed Gram-positive cocci in cluster -peña negative for vegetation/mass lesion, LVEF 55% Ordered repeat blood culture -continue IV vancomycin as prescribed #Suspected aspiration pneumonia -CT head -CT head -Chronic lacunar infarcts in the bilateral thalami. Old infarct in the medial right occipital lobe. Given seizure + fall + elevated WBC + risk of aspiration. -no acute sign or symptom of distress -patient in room air -we will continue monitoring clinically #Lactic acidosis secondary to seizure Lactate 7.1 > 4.5> 1.0 -continue IV fluid as prescribed #GWEN on CKD -avoid dehydration and nephrotoxic meds -continue IV fluid as prescribed -monitor BMP # mild acute rhabdomyolysis -no acute muscular injury -CPK 1365>695 -continue IV normal fluid as prescribed # leukocytosis likely reactive -no acute fever or dysuria -WBC trending down - monitoring CBC #Hypertension, #hyperlipidemia -we will continue monitoring blood pressure -continue atorvastatin as prescribed # recurrent hypoglycemia likely from starvation -started patient on cardiac diet -continue IV fluid as prescribed -monitor blood sugar # substance abuse -UDS positive for marijuana -patient was counseled about the effect of substance abuse on health Goals of care, Code status full code PUD prophylaxis: Pantoprazole DVT prophylaxis: Lovenox Plan discussed with Dr. Dyer, nursing staff, sister Total time spent on patient evaluation, chart review, assessment and plan, discussion discussion >35 minutes Plan discussed with: Patient, Other (RN) My Orders My Orders Orders - ETHAN SANZ RESIDENT Procedure Category Date Status Time Vancomycin 750mg Kit PHA 05/24/25 In Process (Vancomycin Hcl) 23:00 * Cardiology Consult CONS 05/25/25 Transmitted 07:18 Vancomycin,Trough LAB 05/25/25 Logged 22:00 Creatinine LAB 05/26/25 Verified 04:00 Blood Culture LIBORIO 05/25/25 In Process 13:16 Visit Coding STANDARD RES Billing Provider: BAYLEE DYER MD Date of Service if different f: May 25, 2025 Common Visit Codes: [id number] INP/OBS CARE(HIGH) ETHAN SANZ RESIDENT May 25, 2025 17:37
[2025-05-25 20:00] VITALS: PULSE 60
[2025-05-25 21:00] VITALS: BP 153/60; PULSE 68; RESP 17; TEMP 97.3; O2SAT 98
[2025-05-26] VITALS (7 sets, daily range): BP systolic 132–145; BP diastolic 44–70; PULSE 58–69; RESP 16–18; TEMP 97.5–98.8; O2SAT 95–97
[2025-05-26 05:52] LABS: Chloride 107 mmol/L (98-107); Potassium 4.0 mmol/L (3.5-5.1); Sodium 142 mmol/L (136-145)
[2025-05-26 05:53] LABS: Anion Gap 9 (5-15); Calcium 8.8 mg/dL (8.7-10.4); Carbon Dioxide 26 mmol/L (20-31)
[2025-05-26 05:58] LABS: BUN/Creatinine Ratio 10.0 (10.0-20.0); Blood Urea Nitrogen 11 mg/dL (9-23); Glucose 104 mg/dL (74-106)
[2025-05-26 06:02] LABS: Creatine Kinase IFCC 244 U/L (46-171)
--- NOTE | 2025-05-26 07:50 | ECG ---
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
--- NOTE | 2025-05-26 17:51 | DVHPNRES ---
Progress Note Date Seen: May 26, 2025 Resident Creating Document: ETHAN SANZ RESIDENT Medical Necessity Reason Pt with a Central, PICC or Fol: No Subjective Review of Systems This is a 79-year-old male with PMHx of chronic stroke, left vertebral artery occlusion, hypertension, hyperlipidemia, and seizures, who presented after being found seizing at home. History is limited due to the patient being post-ictal and no family available at bedside. Information obtained from EMS and EMR. EMS reports a seizure lasting ~1 minute with a fall to the floor; no obvious trauma noted. The patient has been seen multiple times for similar episodes. Patient reported he was noncompliant with the treatment as he did not have medicine for months. Review of prior records confirms he is on levetiracetam 500 mg BID. Initial lab workup revealed CBC with WBC 16.1. BMP notable for Cr 1.36. Lactate 7.1, likely elevated secondary to recent seizure activity. CT head -Chronic lacunar infarcts in the bilateral thalami. Old infarct in the medial right occipital lobe. Prior images Brain MRI (Jun): small R occipital and bilateral thalamic infarcts; moderate right mastoid effusion; mild mucosal thickening. Neck CTA: near-complete occlusion of L vertebral artery, likely retrograde filling from contralateral vertebral artery; chronic findings; neurology has previously determined no further interventional options. PMH-chronic stroke, left vertebral artery occlusion, hypertension, hyperlipidemia, and seizures PSH- none Allergy- NKDA Personal History/ Social History- occasional smoker, use marijuana, denies alcoholism, Review of other system Cardiovascular- deny acute chest pain or shortness of breath or cough or palpitation Respiratory denies cough or short of breath or wheezing Gastrointestinal- denies any rectal bleeding, nausea or vomiting Musculoskeletal-denies acute joint swelling or tenderness or redness Neurological- seizure Psychiatry- denies depression or SI or HI Skin- denies acute rash or purpura Patient was seen today at bedside, labs and chart reviewed. Repeat blood culture no growth so far Possible discharge tomorrow Objective vital signs Vital Sign Date Time Temp Pulse Resp B/P (MAP) Pulse Ox O2 Delivery O2 Flow Rate FiO2 05/26/25 17:00 98.5 62 18 136/61 (86) 97 98.5 05/26/25 08:00 Room Air* 0 21 Total Intake and Output 05/25/25 05/25/25 05/26/25 15:00 23:00 07:00 Intake Total 360 ml 1350 ml Output Total 800 ml Balance 360 ml 550 ml medications Current Medications Medications Dose Ordered Sig/Sarah Beth Route Start Time Stop Time Status Last Admin Dose Admin Pantoprazole Sodium 40 mg DAILY@0600 PO 05/24/25 06:00 05/26/25 05:54 40 MG Dextrose/Sodium Chloride 1,000 ml @ 100 mls/hr Q10H IV 05/23/25 15:15 05/26/25 04:00 100 MLS/HR Aspirin 81 mg DAILY PO 05/24/25 10:00 05/26/25 10:57 81 MG Atorvastatin Calcium 20 mg HS PO 05/23/25 22:00 05/25/25 21:13 20 MG Vancomycin HCl 0 ml @ 0 mls/hr PER PHARMACY IV 05/24/25 07:45 Levetiracetam 500 mg BID PO 05/24/25 22:00 05/26/25 10:57 500 MG Vancomycin HCl 100 ml @ 100 mls/hr Q12H IV 05/24/25 23:00 05/26/25 10:57 100 MLS/HR Examination General examination- awake, alert, oriented HEENT- PEERLA, no acute nasal discharge Cardiovascular- S1-S2 audible, rate and rhythm regular, no murmur Respiratory- CTAB, no wheeze or rhonchi Gastrointestinal-nontender, bowel sound+. Nondistended Musculoskeletal-no acute joint swelling or tenderness or redness Lower extremity- no leg edema Neurological- cranial nerves intact, no acute dysarthria or dysphagia Psychiatry- denies depression or SI or HI Skin- no acute rash or purpura laboratory and microbiology Laboratory Tests 05/26/25 04:49 05/25/25 05:46 Test 05/26/25 04:49 Range/Units Serum Glucose 104 74-106 mg/dL Microbiology Date/Time Source Procedure Growth Status 05/25/25 13:56 Blood Blood Culture - Preliminary NO GROWTH AFTER 24 HOURS OF INCUBATION. Resulted 05/23/25 03:00 Voided Urine Urine Culture - Final Complete Problem List/Assessment/Plan Problem List/Assessment/Plan Assessment and plan # Acute Breakthrough seizure #Likely breakthrough seizure given med nonadherence and chronic cerebrovascular disease.. CT head -CT head -Chronic lacunar infarcts in the bilateral thalami. Old infarct in the medial right occipital lobe. -change levetiracetam from IV to oral form -pending levetiracetam level -seizure precaution - patient on telemetry 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) -continue current conservative management -continue aspirin and atorvastatin as prescribed -monitor clinically # suspected sepsis # bacteremia -blood culture revealed Gram-positive cocci in cluster -caren negative for vegetation/mass lesion, LVEF 55% - repeat blood culture negative so far -continue IV vancomycin as prescribed #Suspected aspiration pneumonia -CT head -CT head -Chronic lacunar infarcts in the bilateral thalami. Old infarct in the medial right occipital lobe. Given seizure + fall + elevated WBC + risk of aspiration. -no acute sign or symptom of distress -patient in room air -we will continue monitoring clinically #Lactic acidosis secondary to seizure Lactate 7.1 > 4.5> 1.0 -continue IV fluid as prescribed #GWEN on CKD -avoid dehydration and nephrotoxic meds -continue IV fluid as prescribed -monitor BMP # mild acute rhabdomyolysis -no acute muscular injury -CPK 1365>695 -continue IV normal fluid as prescribed # leukocytosis likely reactive -no acute fever or dysuria -WBC trending down - monitoring CBC #Hypertension, #hyperlipidemia -we will continue monitoring blood pressure -continue atorvastatin as prescribed # recurrent hypoglycemia likely from starvation -started patient on cardiac diet -continue IV fluid as prescribed -monitor blood sugar # substance abuse -UDS positive for marijuana -patient was counseled about the effect of substance abuse on health Goals of care, Code status full code PUD prophylaxis: Pantoprazole DVT prophylaxis: Lovenox Plan discussed with Dr. Dyer, nursing staff, sister Total time spent on patient evaluation, chart review, assessment and plan, discussion discussion >35 minutes Plan discussed with: Patient, Other (RN) My Orders My Orders Orders - ETHAN SANZ RESIDENT Procedure Category Date Status Time Cardiac DIET 05/26/25 Transmitted Diet-2gna,Lofat,Lochol Breakfast Vancomycin,Trough LAB 05/27/25 Verified 10:00 Vancomycin Per NEHAL 05/27/25 In Process Pharmacy Protoc 11:00 Complete Blood Count LAB 05/27/25 Verified 04:00 Creatinine LAB 05/27/25 Verified 04:00 Visit Coding STANDARD RES Billing Provider: BAYLEE DYER MD Date of Service if different f: May 26, 2025 Common Visit Codes: [id number] INP/OBS CARE(HIGH) ETHAN SANZ RESIDENT May 26, 2025 17:51
[2025-05-26] MEDS: ACCU-CHEK COMFORT CURVE STRIP VI SCH (21:43)
[2025-05-27 01:00] VITALS: BP 118/78; PULSE 61; RESP 18; TEMP 98.3; O2SAT 95
[2025-05-27 05:00] VITALS: BP 130/86; PULSE 74; RESP 18; TEMP 97.7; O2SAT 95
[2025-05-27 06:02] LABS: Hematocrit 41.3 % (41.0-53.0); Hemoglobin 14.0 g/dL (13.5-17.5); Mean Corpuscular Hemoglobin 32.5 pg (28.0-32.0); Mean Corpuscular Volume 96.0 fL (80.0-100.0); Nucleated Red Blood Cells % 0.1 %
[2025-05-27 06:12] LABS: Anion Gap 10 (5-15); Calcium 9.2 mg/dL (8.7-10.4); Carbon Dioxide 27 mmol/L (20-31); Chloride 103 mmol/L (98-107); Potassium 4.1 mmol/L (3.5-5.1); Sodium 140 mmol/L (136-145)
[2025-05-27 06:18] LABS: BUN/Creatinine Ratio 12.2 (10.0-20.0); Blood Urea Nitrogen 14 mg/dL (9-23); Glucose 95 mg/dL (74-106)
[2025-05-27 08:00] VITALS: PULSE 80; RESP 18; O2SAT 95
[2025-05-27 09:00] VITALS: BP 142/63; PULSE 61; RESP 18; TEMP 98.3; O2SAT 95
--- NOTE | 2025-05-27 10:23 | DVHDSRES ---
Discharge Summary Date of Admission Resident Creating Document: ETHAN SANZ RESIDENT May 22, 2025 at 08:51 Date of Discharge: May 27, 2025 Admitting Diagnosis Breakthrough seizure Wounds: # Acute Breakthrough seizure #Likely breakthrough seizure given med nonadherence and chronic cerebrovascular disease.. 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) # suspected sepsis # bacteremia #Suspected aspiration pneumonia #Lactic acidosis secondary to seizure #GWEN on CKD # mild acute rhabdomyolysis # leukocytosis likely reactive #Hypertension, #hyperlipidemia # recurrent hypoglycemia likely from starvation # substance abuse Labs/Diagnostic Data: Laboratory Results Test 05/27/25 10:03 05/27/25 06:17 05/27/25 05:18 05/26/25 04:49 POC Glucose 103 mg/dl (70-106) White Blood Count 9.4 10^3/uL (4.4-10.8) Red Blood Count 4.31 10^6/uL (4.5-5.90) Hemoglobin 14.0 g/dL (13.5-17.5) Hematocrit 41.3 % (41.0-53.0) Mean Corpuscular Volume 96.0 fL (80.0-100.0) Mean Corpuscular Hemoglobin 32.5 pg (28.0-32.0) Mean Corpuscular Hemoglobin Concent 33.9 g/dL (32.0-36.0) Red Cell Distribution Width 12.7 % (11.8-14.3) Platelet Count 258 10^3/uL (140-450) Mean Platelet Volume 9.3 fL (6.9-10.8) Neutrophils (%) (Auto) 58.8 % (37.0-80.0) Lymphocytes (%) (Auto) 28.5 % (10.0-50.0) Monocytes (%) (Auto) 10.2 % (0.0-12.0) Eosinophils (%) (Auto) 1.4 % (0.0-7.0) Basophils (%) (Auto) 1.1 % (0.0-2.0) Neutrophils # (Auto) 5.5 10 ^3/uL (1.6-8.6) Lymphocytes # (Auto) 2.7 10 ^3/uL (0.4-5.4) Monocytes # (Auto) 1.0 10 ^3/uL (0-1.3) Eosinophils # (Auto) 0.1 10 ^3/uL (0-0.8) Basophils # (Auto) 0.1 10 ^3/uL (0-0.2) Nucleated Red Blood Cells 0.1 % Sodium Level 140 mmol/L (136-145) Potassium Level 4.1 mmol/L (3.5-5.1) Chloride Level 103 mmol/L (98-107) Carbon Dioxide Level 27 mmol/L (20-31) Anion Gap 10 (5-15) Blood Urea Nitrogen 14 mg/dL (9-23) Creatinine 1.15 mg/dL (0.700-1.30) Glomerular Filtration Rate Calc 64 mL/min (>90) BUN/Creatinine Ratio 12.2 (10.0-20.0) Serum Glucose 95 mg/dL (74-106) Calcium Level 9.2 mg/dL (8.7-10.4) Creatine Kinase 244 U/L (46-171) Test 05/25/25 13:51 05/25/25 05:46 05/23/25 08:00 05/23/25 04:19 Prothrombin Time 10.9 sec (9.3-11.8) Prothrombin Time INR 1.03 (0.9-1.15) Activated Partial Thromboplast Time 27.9 SEC (24.5-34.5) Magnesium Level 2.1 mg/dL (1.6-2.6) Total Bilirubin 1.0 mg/dL (0.2-1.0) Aspartate Amino Transferase (AST) 39 U/L (13-40) Alanine Aminotransferase (ALT) 20 U/L (7-40) Alkaline Phosphatase 68 U/L (46-116) Total Protein 6.5 g/dL (5.7-8.2) Albumin 3.9 g/dL (3.2-4.8) Lactic Acid Level 1.0 mmol/L (0.4-2.0) Vitamin B12 Level 536 pg/mL (211-911) Vitamin D 25-Hydroxy 40.6 ng/mL (30.0-100) Folic Acid 30.33 ng/mL (>5.38) Thyroid Stimulating Hormone (TSH) 0.68 uIU/mL (0.55-4.78) Hepatitis B Surface Antigen Negative (Negative) Hepatitis C Antibody Negative (Negative) Test 05/22/25 14:45 05/22/25 08:00 05/22/25 06:50 Urine Color Yellow (Yellow) Urine Clarity Hazy (Clear) Urine pH 6.5 (5.0-9.0) Urine Specific [place] 1.007 (1.001-1.035) Urine Protein Negative (Negative) Urine Ketones Negative (Negative) Urine Blood 1+ /uL (Negative) Urine Nitrite Negative (Negative) Urine Bilirubin Negative (Negative) Urine Urobilinogen Normal mg/dL (Negative) Urine Leukocyte Esterase Negative /uL (Negative) Urine RBC 2 /hpf (0 - 3) Urine Microscopic WBC 1 /HPF (0-3) Urine Squamous Epithelial Cells Few /hpf (<5) Urine Bacteria None seen /hpf (None Seen) Urine Glucose Normal mg/dL (Normal) Urine Opiates Screen Neg (NEGATIVE) Urine Fentanyl Screen Neg (NEGATIVE) Urine Barbiturates Screen Neg (NEGATIVE) Urine Phencyclidine Screen Neg (NEGATIVE) Urine Amphetamines Screen Neg (NEGATIVE) Urine Benzodiazepines Screen Neg (NEGATIVE) Urine Cocaine Screen Neg (NEGATIVE) Urine Cannabinoids Screen Pos (NEGATIVE) Levetiracetam Level <2.0 ug/mL (10.0-40.0) Hemoglobin A1c 5.7 % A1C (<5.7) Other Laboratory Tests 05/27/25 05:18 Brief Hx & Hospital Course: This is a 79-year-old male with PMHx of chronic stroke, left vertebral artery occlusion, hypertension, hyperlipidemia, and seizures, who presented after being found seizing at home. History is limited due to the patient being post-ictal and no family available at bedside. Information obtained from EMS and EMR. EMS reports a seizure lasting ~1 minute with a fall to the floor; no obvious trauma noted. The patient has been seen multiple times for similar episodes. Patient reported he was noncompliant with the treatment as he did not have medicine for months. Review of prior records confirms he is on levetiracetam 500 mg BID. Initial lab workup revealed CBC with WBC 16.1. BMP notable for Cr 1.36. Lactate 7.1, likely elevated secondary to recent seizure activity. CT head -Chronic lacunar infarcts in the bilateral thalami. Old infarct in the medial right occipital lobe. Prior images-Brain MRI (Jun): small R occipital and bilateral thalamic infarcts; moderate right mastoid effusion; mild mucosal thickening.Neck CTA: near-complete occlusion of L vertebral artery, likely retrograde filling from contralateral vertebral artery; chronic findings; neurology has previously determined no further interventional options. Patient was treated conservatively with the Keppra. Patient had bacteremia on blood culture. Treated with the IV vancomycin. Transesophageal echo was negative for endocarditis. Repeat blood culture was negative for any growth. Patient is being discharged home with the Keppra 500 mg p.o. b.i.d. and also Keflex 250 mg qid for 10 days. Patient was advised to follow up at the DC clinic, PCP and also neurologist. Patient was hemodynamically stable on discharge. Counseled about the importance of med compliance. Answered all questions. General examination- awake, alert, oriented HEENT- PEERLA, no acute nasal discharge Cardiovascular- S1-S2 audible, rate and rhythm regular, no murmur Respiratory- CTAB, no wheeze or rhonchi Gastrointestinal-nontender, bowel sound+. Nondistended Musculoskeletal-no acute joint swelling or tenderness or redness Lower extremity- no leg edema Neurological- cranial nerves intact, no acute dysarthria or dysphagia Psychiatry- denies depression or SI or HI Skin- no acute rash or purpura Plan of care discussed with Dr. Dyer Operations or Procedures [place] [id number] Ph: [phone] DIAGNOSTIC IMAGING Diagnostic Imaging Report : [id number] Signed PATIENT: DAWSON BERG ACCT: [id number] UNIT: [id number] : 1945 LOC: OVERFLOW ROOM / BED: [address] [place] [address] AGE / SEX: 79 / M ADM STATUS: ADM IN SERVICE 0638 ORDERING PHYSICIAN: YORDY LUNSFORD MD PROCEDURE(s): CXRP - CHEST PORTABLE REASON: sob ORDER NUMBER(s): [id number], ACCESSION NUMBER(s): [id number] CHEST RADIOGRAPH Indication: sob Technique: Single frontal view of the chest was obtained Comparison: XY CHEST PORTABLE on DOS: 12/04/24. FINDINGS: Lines and Tubes: None Lungs: No focal consolidation. Pleura: No effusion. No pneumothorax. Cardiomediastinal contours: Unremarkable Bones: No acute osseous abnormality. Deformity of the left humeral head. IMPRESSION: 1. No acute cardiopulmonary disease. ATED BY: RACH NOVA MD DICTATED DATE/TIME: 05/23/25621 SIGNED BY: RACH NOVA MD SIGNED DATE/TIME: 05/23/25621 CC: [place] [id number] Ph: [phone] DIAGNOSTIC IMAGING Diagnostic Imaging Report : [id number] Signed PATIENT: DAWSON BERG ACCT: [id number] UNIT: [id number] : 1945 LOC: OVERFLOW ROOM / BED: [facility] / A AGE / SEX: 79 / M ADM STATUS: ADM IN SERVICE 7 ORDERING PHYSICIAN: YORDY LUNSFORD MD PROCEDURE(s): HWOCT - HEAD WITHOUT CONTRAST REASON: altered ORDER NUMBER(s): [id number], ACCESSION NUMBER(s): [id number] EXAM: CT HEAD WITHOUT CONTRAST INDICATION: altered TECHNIQUE: CT of the head without intravenous contrast. Coronal and sagittal reformatted images are submitted. Radiation Dose : 1. Head: CT Dose: CTDI volume is 59.19 mGy. Dose-length product is 947.01 mGy*cm The dose indicators for CT are the volume Computed Tomography (CT) Dose Index (CTDIvol) and the Dose Length Product (DLP), and are measured in units of mGy and mGy-cm, respectively. These indicators are not patient dose, but values generated from the CT scanner acquisition factors. The report includes radiation exposure data for exposures received during this examination. All CT scans at this medical facility are performed using dose modulation techniques as appropriate to a performed exam including the following: Automated exposure control was utilized; adjustment of the MA and/or KV according to patient size; and use of iterative reconstruction technique. COMPARISON: CT HEAD WITHOUT CONTRAST on DOS: 12/04/24. FINDINGS: There is no evidence of acute intracranial hemorrhage, extra-axial collection, mass effect, midline shift, herniation or hydrocephalus. There are chronic lacunar infarcts in the bilateral thalami. There is an old infarct in the medial right occipital lobe. The ventricles, sulci and cisterns are age appropriate. The garcia-white differentiation is intact. The visualized paranasal sinuses and mastoid air cells are clear. No depressed calvarial fracture. The surrounding soft tissues are unremarkable. IMPRESSION: 1. No acute intracranial abnormality. 2. Chronic lacunar infarcts in the bilateral thalami. 3. Old infarct in the medial right occipital lobe. ATED BY: RACH NOVA MD DICTATED DATE/TIME: 05/23/25701 SIGNED BY: RACH NOVA MD SIGNED DATE/TIME: 05/23/25701 CC: Patient: DAWSON BERG Acct: [id number] : 1945 Loc: [facility] Age/Sex: 79/M Room: [facility] / Bed: Attending Phy: ETHAN SANZ RESIDENT Operative Report - 2 Report Details Date: 05/25/25 Preop Diagnosis: Sepsis bacteremia Postop Diagnosis: Severe aortic insufficiency Surgeon: Rosendo Hernandez MD Anesthesiologist: Conscious sedation Anesthesia: Mac, Local Consent: The patient was informed of the risks and benefits of the procedure. These include but are not limited to complications of anesthesia, postoperative infection, incomplete relief of symptoms, recurrence of symptoms, damage to blood vessels, nerves and tendons, deep venous thrombosis, pulmonary embolism and possible need for repeat surgery in the future. Complications: No complications Estimated Blood Loss: Non Findings: Severe aortic insufficiency Indications for Surgery: Bacteremia Name of Procedure Performed Transesophageal echocardiogram Procedure Details Procedure Details: Prior local anesthesia with 2% lidocaine gel to gargle and full informed consent obtained the patient was prepped and draped in the usual fashion, placed in left lateral and semi-Rosario position. Transesophageal probe was passed without difficulty. Standard views obtained. No complications Conclusions: Technically good study. Sinus rhythm. Left atrial enlargement with mild concentric LVH. There is thickening and mild calcification of the aortic leaflets however good mobility is noted less so of the right and left coronary cusps. The mitral and tricuspid are structurally normal the pulmonic is not clearly visualized. Left ventricular function is preserved at 55% with normal RV function. There is mild TR. No ASD. Severe aortic insufficiency with mild mitral insufficiency. No ventricular septal defect. No crossover of bubbles with a bubble study. No pericardial effusion masses or vegetations. Condition Good Disposition 2 Still a Patient Date of Service: May 25, 2025 Billing Provider: ROSENDO HERNANDEZ Sr., MD Cardiology Common Codes: 91372-YJQWDKJ INP/OBS CARE (High) Cardiology Procedure Codes: 18915-DZH W/IMG DOC INCL PROB ACQ ROSENDO HERNANDEZ Sr., MD May 25, 2025 16:01 DICTATED BY:ROSENDO HERNANDEZ Sr., MD DICTATED DATE/TIME:05/25/25 160 ELECTRONICALLY SIGNED BY:ROSENDO HERNANDEZ Sr., MD 05/25/25 1601 ELECTRONICALLY CO-SIGNED BY: [place] [phone] Ph: [phone] DIAGNOSTIC IMAGING Diagnostic Imaging Report : [id number] Signed PATIENT: DAWSON BERG ACCT: [id number] UNIT: [id number] : 1945 LOC: [facility] ROOM / BED: [facility] / AGE / SEX: 79 / M ADM STATUS: ADM IN SERVICE 0738 ORDERING PHYSICIAN: ETHAN SANZ RESIDENT PROCEDURE(s): ECIDC - ECHO 2D MODE CARDIAC DOP REASON: Rule out endocarditis ORDER NUMBER(s): [id number], ACCESSION NUMBER(s): [id number] APPROVED REPORT EXAM: Two-dimensional and M-mode echocardiogram with Doppler and color Doppler. Blood Pressure: 124/62 mmHg INDICATION r/o endocarditis RISK FACTORS Height: 5'7", Weight: 148 DIMENSIONS LVDd 5.0 (3.8-5.7cm) LA (2D) 4.0 (1.9-4.0cm) Aortic Root 2.9 (2.0- 3.7cm) LVDs 3.1 (2.5-4.0cm) LA (MM) (1.9-4.0cm) Aortic Cusp Exc 0.9 (1.5- 2.0cm) EF (%) 68.0 (55-70%) Rt. Atrium 3.9 (1.9-4.0cm) Asc. Aorta cm IVSd 0.9 (0.7-1.1cm) RV (D) 4.2 (1.8-2.4cm) PWd 0.9 (0.7-1.1cm) Mitral Valve Mitral Mitral Stenosis E wave 0.63m/s MV Mean GR. mmHg A wave 0.77m/s MV Peak GR. mmHg E/A ratio 0.8 2D MVA cm2 DECEL Time 142ms PRESS 1/2 Time ms Aortic Valve Aortic Valve Aortic Stenosis V1 1.35m/s AO Mean GR. 6mmHg V2 1.70m/s AO Peak GR. 12mmHg LVOT Diameter 2.0 (1.8-2.4cm) Doppler TARAN 2.49cm2 AI P 1/2 Time 451.32ms Conclusion Left ventricle: The cavity size is normal. Systolic function is janell.l calculated ejection fraction is 68%. Right ventricle: Systolic function is normal Aortic valve: The valve is tricuspid. There is no stenosis. There is moderate aortic regurgitation. Mitral valve: There is mild calcification of mitral valve leaflets. There is a hypoechoic density at the tip of anterior leaflet ( seen on image 34, frames 52- 53/ 157 and image 35, frame 45/155) that does not have typical appearance of vegetation however recommend transesophageal echocardiogram (KIP) to better assess mitral valve if the index of suspicion for infective endocarditis is high. Tricuspid valve: There is trace tricuspid regurgitation. Pulmonic valve:: There is no pulmonic stenosis. There is no regurgitation. Inferior vena cava: The vessel is normal in size. There is more than 50% respiratory phasic variation. SIGNED BY: RUBEN BENSON MD SIGNED DATE/TIME: 05/24/252040 CC: Condition at Discharge: Stable Final Diagnosis/Problems List # Acute Breakthrough seizure #Likely breakthrough seizure given med nonadherence and chronic cerebrovascular disease.. 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 # mild acute rhabdomyolysis # leukocytosis likely reactive #Hypertension, #hyperlipidemia # recurrent hypoglycemia likely from starvation # substance abuse Discharge Disposition: Home Discharge Instruct/Medications Diet: Cardiac 2g Na,low cholest Activity: No Restrictions, As Tolerated Follow Up/Referral: DC clinic PCP Neurology Medications: As prescribed Scheduled Amlodipine Besylate (Amlodipine Besylate), 1 TAB PO DAILY Atorvastatin Calcium (Atorvastatin Calcium), 20 MG PO HS Cephalexin (Keflex Capsule), 500 MG PO TID Cephalexin (Keflex Capsule), 1 CAP PO QID Levetiracetam (Levetiracetam), 500 MG PO BID Levetiracetam (Keppra), 1 TAB PO BID Discharge Statement: "Patient was advised to return to the ER or call 911 if any headaches, dizziness, shortness of breath, chest pain, abdominal pain, bleeding, fevers, or worsening of medical condition. Patient was counseled about treatment plan, medications, possible side effects, patientverbalized understanding. All questions were answered to the best of my ability. This discharge took greater then 30 minutes in planning, reviewing documentation, counseling the patient, and discussing with other team members." ASSESSMENT ASSESSMENT Assessment Seizure Bacteremia Visit Coding STANDARD RES Billing Provider: BAYLEE DYER MD Date of Service if different f: May 27, 2025 Common Visit Codes: 26764-NLE/OBS DISCH DAY >30min ETHAN SANZ RESIDENT May 27, 2025 10:23 MÓNICA FELTON RESIDENT May 27, 2025 19:03
[2025-05-27] MEDS ORDERED: LEVE500T40 PO (11:00)
[2025-05-27] MEDS ORDERED: CEPH250C PO (11:46)
[2025-05-27 13:00] VITALS: BP 126/46; PULSE 95; RESP 20; TEMP 98.5; O2SAT 97
[2025-05-27 13:12] VITALS: BP 142/63; PULSE 80; RESP 18; TEMP 98.3; O2SAT 95
[2025-05-27] MEDS ORDERED: ASPI-325 PO (19:03)
== END 2025-05-27 15:30 | disposition home or self-care (01) | DRG 871 ==
LOC: EDBD 05:51 → ER 05:51 → OVERFLOW 08:51 → WEST WING 05-23 22:04 → TELE-WESTW 05-24 12:23
PROVIDERS: ADMIT Internal Medicine Geriatric Medicine; ATTEND Internal Medicine Geriatric Medicine
PROC: B24BZZ4 Ultrasonography of Heart with Aorta, Transesophageal (ICD-10-PCS; principal; 2025-05-25)
DX: A41.9 Sepsis, unspecified organism (principal); J18.9 Pneumonia, unspecified organism; J69.0 Pneumonitis due to inhalation of food and vomit; M62.82 Rhabdomyolysis; E87.20 Acidosis, unspecified; N17.9 Acute kidney failure, unspecified; G40.909 Epilepsy, unspecified, not intractable, without status epilepticus; N18.9 Chronic kidney disease, unspecified; I12.9 Hypertensive chronic kidney disease with stage 1 through stage 4 chronic kidney disease, or unspecified chronic kidney disease; F12.10 Cannabis abuse, uncomplicated; I35.1 Nonrheumatic aortic (valve) insufficiency; E78.5 Hyperlipidemia, unspecified; N40.0 Benign prostatic hyperplasia without lower urinary tract symptoms; E16.2 Hypoglycemia, unspecified; F17.210 Nicotine dependence, cigarettes, uncomplicated; Z79.899 Other long term (current) drug therapy; Z86.73 Personal history of transient ischemic attack (TIA), and cerebral infarction without residual deficits; Z82.49 Family history of ischemic heart disease and other diseases of the circulatory system
CPT/HCPCS: 36415; 70450; 71045; 80048; 80053; 80202; 80307; 81001; 82306; 82542; 82550; 82607; 82746; 82962; 83036; 83605; 83735; 84443; 85025; 85610; 85730; 86803; 86850; 86900; 86901; 87040; 87077; 87086; 87340; 93005; 93306; 93312; 96365; 99291; 99292; G0378; J2250; J7042